=== PATIENT | female | born 1935 | race Caucasian/White ===

== ENCOUNTER 2016-08-20 07:01 | Emergency (ER) | payer MEDICARE, MEDICAID ==
--- NOTE | 2016-08-20 07:13 | Emergency Department Record ---
History of Present Illness - General Chief Complaint: Fall Injury Time Seen by Provider: 08/20/16 07:03 Source: Patient, Family, EMS Mode of Arrival: Ambulatory Limitations: No limitations - History of Present Illness Initial Comments: 80 yo female presents by EMS after a fall. She reports some difficulties recalling all details but she thinks she fell around 5:30am. She was ambulating with her walker and fell. She does not think she lost consciousness but she can not remember all details of the morning. She did hit her forehead and she complains of right upper extremity pain and bilateral knee pain. She is on aspirin and plavix. She used her life alert to contact EMS for emergent care. She has an associated headache. No vomiting. No incontinence PCP: Dr Powell PMHx: HTN, Stroke, Diabetes, Hypothyroid, CAD S/P CABG. MD Complaint: Fall -: Hour(s) Fall From: Standing When Fall Occurred: 1-3 hours [employer] Fall Witnessed: No Place Fall Occurred: Home Loss of Consciousness: Unsure Location: Head, Face Location - Extremities: Left: Knee, Right: Shoulder, Elbow, Knee Severity: Moderate Quality: Aching Context: Tripped/slipped Associated Symptoms: Confusion - [place] Coma Scale Eye Response: (4) Open spontaneously Motor Response: (6) Obeys commands Verbal Response: (5) Oriented Mary Total: 15 - Related Data Home Medications Medication Instructions Recorded Confirmed Last Taken Clopidogrel Bisulfate [Plavix] 75 mg PO DAILY 08/28/13 08/20/16 10/05/15 Insulin Glargine,Hum.rec.anlog 70 units SQ QHS 08/28/13 08/20/16 05/22/15 [Lantus] Omeprazole [Prilosec] 20 mg PO QAM 08/28/13 08/20/16 05/23/15 Potassium Chloride [Klor-Con M10] 10 meq PO DAILY 08/28/13 08/20/16 05/23/15 Pravastatin Sodium [Pravachol] 20 mg PO QPM 08/28/13 08/20/16 05/22/15 Dronedarone HCl [Multaq] 400 mg PO BID 10/11/14 08/20/16 05/23/15 Gabapentin [Gabapentin] 300 mg PO TID 10/11/14 08/20/16 05/23/15 Isosorbide Mononitrate [Imdur] 30 mg PO DAILY 10/11/14 08/20/16 10/05/15 Levothyroxine Sodium [Synthroid] 50 mcg PO DAILY 10/11/14 08/20/16 05/23/15 Lisinopril 10 mg PO DAILY 10/11/14 08/20/16 10/05/15 Metoprolol Succinate [Toprol Xl] 25 mg PO DAILY 10/11/14 08/20/16 10/05/15 Sertraline HCl [Zoloft] 100 mg PO BID 05/23/15 08/20/16 05/23/15 Albuterol Sulfate 0.5 ml NEB ASDIR 10/05/15 08/20/16 Unknown Aspirin [Adult Low Dose Aspirin EC] 81 mg PO DAILY 10/05/15 08/20/16 10/05/15 Bumetanide 0.5 mg PO DAILY 10/05/15 08/20/16 10/05/15 Ferrous Sulfate 325 mg PO DAILY 10/05/15 08/20/16 Unknown Fluticasone Propionate [Flovent 50 mcg IH ASDIR 10/05/15 08/20/16 Unknown Diskus] Metformin HCl 500 mg PO DAILY 10/05/15 08/20/16 Unknown Temazepam 15 mg PO QHS 10/05/15 08/20/16 Unknown Tiotropium [place] [Spiriva] 18 mcg IH DAILY 10/05/15 08/20/16 Unknown Tramadol HCl 50 mg PO Q6H 10/05/15 08/20/16 Unknown Venlafaxine HCl [Effexor] 75 mg PO BID 10/05/15 08/20/16 Unknown Nitroglycerin [Nitrostat] 0.4 mg SL ASDIR PRN 10/31/15 08/20/16 10/31/15 Allergies Allergy/AdvReac Type Severity Reaction Status Date / Time allopurinol [ALLOPURINOL] Allergy Unknown SWELLING Verified 08/20/16 07:04 (GENERAL) metoclopramide HCl Allergy Unknown SWELLING Verified 08/20/16 07:04 [From REGLAN] (GENERAL) ranitidine HCl [From ZANTAC] Allergy Unknown SWELLING Verified 08/20/16 07:04 (GENERAL) Sulfa (Sulfonamide Allergy Unknown SWELLING Verified 08/20/16 07:04 Antibiotics) (GENERAL) [SULFA (SULFONAMIDE ANTIBIOTICS)] abciximab [From Reopro] Allergy RASH Verified 08/20/16 07:04 eptifibatide Allergy RASH Verified 08/20/16 07:04 [From Integrilin] NSAIDS (Non-Steroidal Allergy RASH Verified 08/20/16 07:04 Anti-Inflamma verapamil HCl [From CALAN] AdvReac Unknown NAUSEA Verified 08/20/16 07:04 Review of Systems Constitutional: Denies: Chills, Fever, Weakness Eyes: Denies: Eye discharge, Eye pain, Photophobia, Vision change ENT: Denies: Congestion Respiratory: Denies: Cough, Hemoptysis, Stridor Cardiovascular: Denies: Chest pain, Palpitations, Syncope Endocrine: Denies: Fatigue Gastrointestinal: Denies: Abdominal pain, Diarrhea, Nausea, Vomiting Genitourinary: Denies: Dysuria Musculoskeletal: Reports: Arthralgia, Myalgia Skin: Reports: Bruising Neurological: Reports: Confusion, Headache. Denies: Weakness Psychiatric: Denies: Anxiety Hematological/Lymphatic: Denies: Blood Clots, Easy bleeding, Easy bruising, Swollen glands Past Medical History - SOCIAL HISTORY Smoking Status: Former smoker - RESPIRATORY Hx Respiratory Disorders: Yes Hx Asthma: Yes Hx Sleep Apnea: Yes Hx of CPAP: Yes Comment:: CPAP - CARDIOVASCULAR Hx Cardio Disorders: Yes Hx Abnormal EKG: Yes Hx Cardiac Cath: Yes (14 stents) Hx CHF: Yes Hx Edema: Yes Hx Heart Attack: Yes Hx Hypertension: Yes Hx Irregular Heartbeat: Yes Hx Vascular Disease: Yes Comment:: high cholesterol - NEURO Hx Neuro Disorders: Yes Hx TIA: Yes - GI Hx GI Disorders: Yes Hx Reflux: Yes Hx Obstructive Bowel: Yes Comment:: HX bowel CA - Hx Genitourinary Disorders: Yes Hx Bladder Problem: Yes - ENDOCRINE Hx Endocrine Disorders: Yes Hx Diabetes: Yes Hx Thyroid Disease: Yes - MUSCULOSKELETAL Hx Musculoskeletal Disorders: Yes Hx Arthritis: Yes Hx Back Injury: Yes Hx Fibromyalgia: Yes Hx Musculoskeletal Disease: Yes Hx Osteoporosis: Yes (osteopenia) Comment:: diabetic neuropathy - PSYCH Hx Psych Problems: Yes Hx Anxiety: Yes Hx Depression: Yes - HEMATOLOGY/ONCOLOGY Hx Hematology/Oncology Disorders: Yes Hx Cancer: Yes (ovarian, bowel, mouth) Hx Chemotherapy: No Hx Radiation Therapy: Yes Hx Blood Transfusions: Yes Family Medical History Hx Cancer: Father, Mother, Brother/Sister Hx Diabetes: Mother, Brother/Sister Physical Exam - General General Appearance: Alert, Oriented x3, Cooperative, No acute distress - Head Head exam: negative: Atraumatic, Normal inspection Head exam detail: Contusion Image of Face/Head: 1 - contusion with bruising and swelling - Eye Eye exam: Normal appearance, PERRL. negative: Conjunctival injection, Periorbital swelling - ENT ENT exam: Normal exam, Mucous membranes moist Ear exam: Normal external inspection Nasal Exam: Normal inspection Mouth exam: Normal external inspection Teeth exam: Normal inspection Throat exam: Normal inspection - Neck Neck exam: Normal inspection. negative: Full ROM (in a c-collar), Tenderness - Respiratory Respiratory exam: Normal lung sounds bilaterally. negative: Respiratory distress - Cardiovascular Cardiovascular Exam: Regular rate, Normal rhythm, Normal heart sounds Peripheral Pulses: 2+: Radial (R), Radial (L) - GI/Abdominal GI/Abdominal exam: Soft. negative: Guarding, Rebound, Rigid, Tenderness - Rectal Rectal exam: Deferred - exam: Deferred - Extremities Extremities exam: Normal capillary refill, Tenderness. negative: Normal inspection, Full ROM Image of Full Body: 1 - tender anterior right shoulder with pain with ROM, tender elbow with pain with ROM 2 - bilateral anterior knee pain with bruising, pain with palpation - Back Back exam: Reports: Normal inspection. Denies: CVA tenderness (R), CVA tenderness (L) - Neurological Neurological exam: Alert, Oriented X3. negative: Abnormal gait, Altered - Psychiatric Psychiatric exam: Normal affect, Normal mood - Skin Skin exam: Abrasion Type of lesion: abrasion Course - Reevaluation(s) Reevaluation #1: EKG 07:14 NSR, rate 85, intervals normal, axis left, ST inverted T waves V3-V6, similar T wave inversion 10/31/15 but afib at that time 08/20/16 07:40 Reevaluation #2: The labs were reviewed No acute changes of the CBC GFR is low at 39. Will make CT's non contrast. 08/20/16 07:51 08/20/16 08:05 Reevaluation #3: The HCT is negative for acute intracranial abnormalities, moderate forehead and left scalp hematoma. The CT scan of the cervical spine is negative for acute fracture, degenerative disc disease, osteopenia 08/20/16 08:07 On recheck the patient still complains of headache 08/20/16 08:32 line up worker and family are in the ER at this time. The patient lives alone. She was alone at the time of the event that was unwitnessed. 08/20/16 08:54 Reevaluation #4: Chest CT report was negative for any acute process CT of the abdomen was negative for acute process 08/20/16 09:06 Reevaluation #5: The XR's of the shoulder, elbow and knees were reviewed. Osteopneia without any definitive fracture on the studies The patient unable to lift the right arm due to pain or sit up due to pain I recommend admission for monitoring and reassess physical status. I discussed this with the patient and family I recommended calling Trauma at [facility] to discuss the case given her injuries, Plavix, and needs physically may require social work and physical therapy that are not available at [facility] over the weekend. 08/20/16 09:36 EMS is in the ED for transfer 08/20/16 10:34 - Consultations Consultation #1: I SHELL ONE-CALL I Trauma (Dr Kamara) and ED (Dr Sharpe) regarding transfer Medical Decision Making - Lab Data Result diagrams: 08/20/16 07:10 08/20/16 07:10 Disposition Disposition: Transfer Clinical Impression: Head contusion Qualifiers: Encounter type: initial encounter Contusion of head detail: scalp Qualified Code(s): S00.03XA - Contusion of scalp, initial encounter Contusion of arm, right Qualifiers: Encounter type: initial encounter Qualified Code(s): S40.021A - Contusion of right upper arm, initial encounter Knee contusion Qualifiers: Encounter type: initial encounter Laterality: unspecified laterality Qualified Code(s): S80.00XA - Contusion of unspecified knee, initial encounter Transfer To: [facility] Reason For Transfer: Trauma, On Plavix Accepting Physician: Dr Asad Wall Time Discussed w/Accepting Physician: 10:02 Condition: (2) Stable Forms: Patient Portal Access Time of Disposition: 10:03
[2016-08-20 07:22] LABS: GRAN % 68.9 % (47-80); HEMATOCRIT 33.7 % (35.0-47.0); HEMOGLOBIN 10.3 gm/dl (11.6-16.0); LYMPH % 21.2 % (16-45); MEAN CELL VOLUME 87.3 fl (81-97); MEAN CORPUSCULAR HGB CONC 30.6 g/dl (32-36); MEAN PLATELET VOLUME 8.9 fl (7.4-10.4); MONO % 9.9 % (0-9); PLATELET COUNT 147 K/uL (130-400); RED BLOOD COUNT 3.86 M/uL (3.80-5.40); RED CELL DISTRIBUTION WIDTH 14.3 % (11.5-14.5); WHITE BLOOD COUNT W/O DIFF 4.4 K/uL (4.2-12.2)
[2016-08-20 07:23] LABS: MEAN CORPUSCULAR HEMOGLOBIN 26.6 pg (27-33)
[2016-08-20 07:33] LABS: INR 0.88; PARTIAL THROMBOPLASTIN TIME 24.1 SECONDS (24.5-39.1)
[2016-08-20 07:37] LABS: ALB/GLOB RATIO 1.6 (1.1-1.8); ALBUMIN 3.8 gm/dL (3.5-5.0); BILIRUBIN,TOTAL 0.4 mg/dL (0.2-1.3); CREATININE 1.4 mg/dL (0.52-1.04); TOTAL PROTEIN 6.2 gm/dL (6.3-8.2)
[2016-08-20 07:43] LABS: CKMB 1.1 ug/L (0-6)
[2016-08-20 08:01] LABS: ABO GROUP A; ANTIBODY SCREEN NEGATIVE (NEGATIVE); RH TYPE NEGATIVE
[2016-08-20] MEDS ORDERED: ACETAMINOPHEN 1,000 MG/100 ML BTL IVPB ONE (08:31)
--- NOTE | 2016-08-20 12:27 | CT SCAN REPORT ---
EXAM: CT OF THE BRAIN WITHOUT CONTRAST HISTORY: TRAUMA. TECHNIQUE: Sequential axial images were obtained from the foramen magnum to the vertex without contrast administration. FINDINGS: The brain volume is normal. No large territorial infarct, hemorrhage , mass effect, or midline shift. There is a frontal scalp hematoma. No underlying osseous abnormality. IMPRESSION: FRONTAL SCALP HEMATOMA. NO UNDERLYING OSSEOUS ABNORMALITY. JOB NUMBER: [id number] [facility]TDD
--- NOTE | 2016-08-20 12:29 | RADIOLOGY REPORT ---
EXAM: RIGHT KNEE HISTORY: TRAUMA. TECHNIQUE: Three views of the right knee were performed. FINDINGS: There is osteopenia. No evidence of fracture. No joint effusion. IMPRESSION: OSTEOPENIA. NO DEFINITIVE FRACTURE. JOB NUMBER: [id number] [facility]TD[facility]
--- NOTE | 2016-08-20 12:30 | RADIOLOGY REPORT ---
EXAM: LEFT KNEE HISTORY: TRAUMA. TECHNIQUE: Three views of the left knee were performed. FINDINGS: There is osteopenia. No definitive fracture. No joint effusion. IMPRESSION: OSTEOPENIA. NO DEFINITIVE FRACTURE. JOB NUMBER: [id number] MTDD
--- NOTE | 2016-08-20 12:32 | RADIOLOGY REPORT ---
EXAM: RIGHT SHOULDER HISTORY: TRAUMA. TECHNIQUE: Two views of the right shoulder were performed. FINDINGS: There is osteopenia. No definitive fracture or dislocation. IMPRESSION: OSTEOPENIA. NO DEFINITIVE FRACTURE OR DISLOCATION. [facility]: [id number] [facility]
--- NOTE | 2016-08-20 12:36 | CT SCAN REPORT ---
EXAM: CT OF THE CHEST WITHOUT CONTRAST HISTORY: INJURY. TECHNIQUE: Sequential axial images were obtained from the thoracic inlet through the bilateral adrenal glands without intravenous contrast administration. FINDINGS: Respiratory motion artifact on this evaluation. There is cardiomegaly. No pericardial effusion. There is atheromatous change of the thoracic aorta. There are patchy ground glass opacities throughout both lung [place]. This may be related to respiratory motion artifact. No fracture deformities are appreciated. There is multilevel degenerative change. There is a right [id number] catheter in place. IMPRESSION: 1. CARDIOMEGALY WITH CORONARY ARTERY DISEASE AND POSTOP SURGICAL CHANGE. 2. RESPIRATORY MOTION ARTIFACT SOMEWHAT LIMITS EVALUATION. THERE ARE EQUIVOCAL GROUND GLASS OPACITIES THROUGHOUT BOTH LUNGS VERSUS MOTION ARTIFACT. 3. NO OSSEOUS ABNORMALITY. [facility]: [id number] [facility]
--- NOTE | 2016-08-20 12:41 | CT SCAN REPORT ---
EXAM: CT OF THE ABDOMEN AND PELVIS WITHOUT CONTRAST HISTORY: FALL. TECHNIQUE: Sequential axial images were obtained from the diaphragms through the ischiorectal fossa without intravenous or oral contrast administration. FINDINGS: The visualized lung bases appear normal. The gallbladder has been surgically removed. There are stable linear hypodensities in the right lobe which likely correspond to dilated ducts. These appear stable when compared to the prior exam dated 05/23/15. The pancreas and spleen appear normal. The adrenal glands and kidneys appear normal. There is a small nonobstructing calculus in the left kidney. There is severe atheromatous change of the abdominal vasculature. The small and large bowel appears normal. The urinary bladder appears normal. No osseous abnormalities are appreciated. There are injection granulomas within the soft tissues of the buttock. IMPRESSION: 1. NO ACUTE ABDOMINAL OR PELVIC DISEASE PROCESS. NO VISCERAL INJURY. 2. LINEAR HYPODENSITIES IN THE MEDIAL RIGHT LOBE OF THE LIVER STABLE IN APPEARANCE WHEN COMPARED TO THE PRIOR EXAM. THIS LIKELY CORRESPONDS TO DUCTAL DILATATION. THE ETIOLOGY OF THIS, HOWEVER, IS UNCERTAIN. 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 JOB NUMBER: [id number] [facility]
--- NOTE | 2016-08-20 12:44 | CT SCAN REPORT ---
EXAM: CT OF THE CERVICAL SPINE WITHOUT CONTRAST HISTORY: FALL. TECHNIQUE: Sequential axial images were obtained through the cervical spine without intravenous contrast administration. Sagittal and coronal reformatted images were performed. FINDINGS: There is no evidence of fracture, subluxation, or perched facet. There is mild multilevel degenerative change. The lateral masses are well aligned. The prevertebral soft tissues are normal. IMPRESSION: 1. NO EVIDENCE OF FRACTURE, SUBLUXATION, OR PERCHED FACET. 2. UNDERLYING OSTEOPENIA. J[facility]BER: [id number] [facility]
--- NOTE | 2016-08-20 13:19 | RADIOLOGY REPORT ---
EXAM: RIGHT ELBOW HISTORY: INJURY. TECHNIQUE: Three views of the right elbow were performed. FINDINGS: No evidence of fracture or dislocation. There is osteopenia. IMPRESSION: OSTEOPENIA. NO EVIDENCE OF FRACTURE. JOB NUMBER: [id number] [facility]
== END 2016-08-20 10:37 | disposition short-term general hospital (02) ==
LOC: ER 07:01
DX: S00.03XA Contusion of scalp, initial encounter (principal); S80.02XA Contusion of left knee, initial encounter; S80.01XA Contusion of right knee, initial encounter; S40.011A Contusion of right shoulder, initial encounter; S40.021A Contusion of right upper arm, initial encounter; R51 Headache; M50.30 Other cervical disc degeneration, unspecified cervical region; I25.10 Atherosclerotic heart disease of native coronary artery without angina pectoris; E03.9 Hypothyroidism, unspecified; E11.9 Type 2 diabetes mellitus without complications; Z95.1 Presence of aortocoronary bypass graft; Z79.02 Long term (current) use of antithrombotics/antiplatelets; I25.2 Old myocardial infarction; I10 Essential (primary) hypertension; W01.198A Fall on same level from slipping, tripping and stumbling with subsequent striking against other object, initial encounter; Y92.002 Bathroom of unspecified non-institutional (private) residence as the place of occurrence of the external cause
CPT/HCPCS: 99285 ×2; 96374; 82550; 83605; 85025; 85730; 85610; 82553; 80053; 86900; 86901; 86850; 73080; 73562 ×2; 73030; 72125; 71250; 70450; 74176; 93005; 93010; G0480; 80320

== ENCOUNTER 2016-09-15 16:36 | Emergency (ER) | payer MEDICARE, MEDICAID ==
--- NOTE | 2016-09-15 17:16 | Emergency Department Record ---
History of Present Illness - General Chief complaint: Rash Stated complaint: RASH Time Seen by Provider: 09/15/16 17:09 Source: Patient, RN notes reviewed Mode of Arrival: Ambulatory - History of Present Illness Initial comments: rash on legs started started 3 days ago and only on the lower legs both.Itch and diabetic MD complaint: Rash Onset/Timin -: Days(s) Hx Tetanus Toxoid Vaccination: Yes Year of Tetanus Vaccination: unsure Location: LLE, RLE Severity: Moderate Quality: Other Consistency: Constant Improves with: None Worsens with: None Context: None Associated symptoms: Denies other symptoms Treatments Prior to Arrival: Benadryl, OTC topical medication Treatment Prior to Arrival Comment:: Benadryl last PM - Related Data Home Medications Medication Instructions Recorded Confirmed Last Taken Clopidogrel Bisulfate [Plavix] 75 mg PO DAILY 08/28/13 09/15/16 10/05/15 Insulin Glargine,Hum.rec.anlog 70 units SQ QHS 08/28/13 09/15/16 05/22/15 [Lantus] Omeprazole [Prilosec] 20 mg PO QAM 08/28/13 09/15/16 05/23/15 Potassium Chloride [Klor-Con M10] 10 meq PO DAILY 08/28/13 09/15/16 05/23/15 Pravastatin Sodium [Pravachol] 20 mg PO QPM 08/28/13 09/15/16 05/22/15 Dronedarone HCl [Multaq] 400 mg PO BID 10/11/14 09/15/16 05/23/15 Gabapentin [Gabapentin] 300 mg PO TID 10/11/14 09/15/16 05/23/15 Isosorbide Mononitrate [Imdur] 30 mg PO DAILY 10/11/14 09/15/16 10/05/15 Levothyroxine Sodium [Synthroid] 50 mcg PO DAILY 10/11/14 09/15/16 05/23/15 Lisinopril 10 mg PO DAILY 10/11/14 09/15/16 10/05/15 Metoprolol Succinate [Toprol Xl] 25 mg PO DAILY 10/11/14 09/15/16 10/05/15 Sertraline HCl [Zoloft] 100 mg PO BID 05/23/15 09/15/16 05/23/15 Albuterol Sulfate 0.5 ml NEB ASDIR 10/05/15 09/15/16 Unknown Aspirin [Adult Low Dose Aspirin EC] 81 mg PO DAILY 10/05/15 09/15/16 10/05/15 Bumetanide 0.5 mg PO DAILY 10/05/15 09/15/16 10/05/15 Ferrous Sulfate 325 mg PO DAILY 10/05/15 09/15/16 Unknown Fluticasone Propionate [Flovent 50 mcg IH ASDIR 10/05/15 09/15/16 Unknown Diskus] Metformin HCl 500 mg PO DAILY 10/05/15 09/15/16 Unknown Temazepam 15 mg PO QHS 10/05/15 09/15/16 Unknown Tiotropium [place] [Spiriva] 18 mcg IH DAILY 10/05/15 09/15/16 Unknown Tramadol HCl 50 mg PO Q6H 10/05/15 09/15/16 Unknown Venlafaxine HCl [Effexor] 75 mg PO BID 10/05/15 09/15/16 Unknown Nitroglycerin [Nitrostat] 0.4 mg SL ASDIR PRN 10/31/15 09/15/16 10/31/15 Previous Rx's Medication Instructions Recorded Prednisone [Prednisone 10Mg] 10 mg PO ASDIR #18 tab 09/15/16 Allergies Allergy/AdvReac Type Severity Reaction Status Date / Time allopurinol [ALLOPURINOL] Allergy Unknown SWELLING Verified 09/15/16 16:54 (GENERAL) metoclopramide HCl Allergy Unknown SWELLING Verified 09/15/16 16:54 [From REGLAN] (GENERAL) ranitidine HCl [From ZANTAC] Allergy Unknown SWELLING Verified 09/15/16 16:54 (GENERAL) Sulfa (Sulfonamide Allergy Unknown SWELLING Verified 09/15/16 16:54 Antibiotics) (GENERAL) [SULFA (SULFONAMIDE ANTIBIOTICS)] abciximab [From Reopro] Allergy RASH Verified 09/15/16 16:54 eptifibatide Allergy RASH Verified 09/15/16 16:54 [From Integrilin] NSAIDS (Non-Steroidal Allergy RASH Verified 09/15/16 16:54 Anti-Inflamma verapamil HCl [From CALAN] AdvReac Unknown NAUSEA Verified 09/15/16 16:54 Travel Screening - Travel/Exposure Within Last 30 Days Have you traveled within the last 30 days?: No - Travel/Exposure Within Last Year Have you traveled outside the [place] in the last year?: No - Additonal Travel Details Have you been exposed to anyone with a communicable illness?: No - Travel Symptoms Symptom Screening: None Review of Systems Reviewed: No additional complaints except as noted below Constitutional: Reports: As per HPI. Denies: Chills, Fever, Malaise, Night sweats, Weakness, Weight change Eyes: Reports: As per HPI. Denies: Eye discharge, Eye pain, Photophobia, Vision change ENT: Reports: As per HPI. Denies: Congestion, Dental pain, Ear pain, Epistaxis , Hearing loss, Throat pain Respiratory: Reports: As per HPI. Denies: Cough, Dyspnea, Hemoptysis, Stridor, Wheezes Cardiovascular: Reports: As per HPI. Denies: Arrhythmia, Chest pain, Dyspnea on exertion, Edema, Murmurs, Orthopnea, Palpitations, Paroxysmal nocturnal dyspnea, Rheumatic Fever, Syncope Endocrine: Reports: As per HPI. Denies: Fatigue, Heat or cold intolerance, Polydipsia, Polyuria Gastrointestinal: Reports: As per HPI. Denies: Abdominal pain, Constipation, Diarrhea, Hematemesis, Hematochezia, Melena, Nausea, Vomiting Genitourinary: Reports: As per HPI. Denies: Abnormal menses, Discharge, Dyspareunia, Dysuria, Frequency, Hematuria, Incontinence, Retention, Urgency Musculoskeletal: Reports: As per HPI. Denies: Arthralgia, Back pain, Gout, Joint swelling, Myalgia, Neck pain Skin: Reports: As per HPI, Rash. Denies: Bruising, Change in color, Change in hair/nails, Lesions, Pruritus Neurological: Reports: As per HPI. Denies: Abnormal gait, Confusion, Headache, Numbness, Paresthesias, Seizure, Tingling, Tremors, Vertigo, Weakness Psychiatric: Reports: As per HPI. Denies: Anxiety, Auditory hallucinations, Depression, Homicidal thoughts, Suicidal thoughts, Visual hallucinations Hematological/Lymphatic: Reports: As per HPI. Denies: Anemia, Blood Clots, Easy bleeding, Easy bruising, Swollen glands Past Medical History - SOCIAL HISTORY Smoking Status: Former smoker Alcohol Use: None Drug Use: None - RESPIRATORY Hx Respiratory Disorders: Yes Hx Asthma: Yes Hx Sleep Apnea: Yes Hx of CPAP: Yes Comment:: CPAP - CARDIOVASCULAR Hx Cardio Disorders: Yes Hx Abnormal EKG: Yes Hx Cardiac Cath: Yes (14 stents) Hx CHF: Yes Hx Edema: Yes Hx Heart Attack: Yes Hx Hypertension: Yes Hx Irregular Heartbeat: Yes Hx Vascular Disease: Yes Comment:: high cholesterol - NEURO Hx Neuro Disorders: Yes Hx TIA: Yes - GI Hx GI Disorders: Yes Hx Reflux: Yes Hx Obstructive Bowel: Yes Comment:: HX bowel CA - Hx Genitourinary Disorders: Yes Hx Bladder Problem: Yes - ENDOCRINE Hx Endocrine Disorders: Yes Hx Diabetes: Yes Hx Thyroid Disease: Yes - MUSCULOSKELETAL Hx Musculoskeletal Disorders: Yes Hx Arthritis: Yes Hx Back Injury: Yes Hx Fibromyalgia: Yes Hx Musculoskeletal Disease: Yes Hx Osteoporosis: Yes (osteopenia) Comment:: diabetic neuropathy - PSYCH Hx Psych Problems: Yes Hx Anxiety: Yes Hx Depression: Yes - HEMATOLOGY/ONCOLOGY Hx Hematology/Oncology Disorders: Yes Hx Cancer: Yes (ovarian, bowel, mouth) Hx Chemotherapy: No Hx Radiation Therapy: Yes Hx Blood Transfusions: Yes Family Medical History Any Significant Family History?: Yes Hx Cancer: Father, Mother, Brother/Sister Hx Diabetes: Mother, Brother/Sister Physical Exam - General General Appearance: Alert, Oriented x3, Cooperative, No acute distress - Head Head exam: Normal inspection - Eye Eye exam: Normal appearance, PERRL Pupils: Normal accommodation - ENT ENT exam: Normal exam, Mucous membranes moist, Normal external ear exam, Normal orophraynx, TM's normal bilaterally Ear exam: Normal external inspection. negative: External canal tenderness Nasal Exam: Normal inspection. negative: Discharge, Sinus tenderness Mouth exam: Normal external inspection, Tongue normal Teeth exam: Normal inspection. negative: Dental caries Throat exam: Normal inspection. negative: Tonsillar erythema, Tonsillar exudate - Neck Neck exam: Normal inspection, Full ROM. negative: Tenderness - Respiratory Respiratory exam: Normal lung sounds bilaterally. negative: Respiratory distress - Cardiovascular Cardiovascular Exam: Regular rate, Normal rhythm, Normal heart sounds - GI/Abdominal GI/Abdominal exam: Soft, Normal bowel sounds. negative: Tenderness - Rectal Rectal exam: Deferred - exam: Deferred - Extremities Extremities exam: Normal inspection, Full ROM, Normal capillary refill. negative: Tenderness - Back Back exam: Reports: Normal inspection, Full ROM. Denies: Muscle spasm, Rash noted, Tenderness - Neurological Neurological exam: Alert, Normal gait, Oriented X3, Reflexes normal - Psychiatric Psychiatric exam: Normal affect, Normal mood - Skin Skin exam: Rash (small red spots on both legs and on the right lower leg she has an old ulcer scar from 30 years ago. she is scratching her legs) Course Vital Signs 09/15/16 16:56 Temperature 98.7 F Pulse Rate 79 Respiratory 20 Rate Blood Pressure 109/71 Pulse Ox 98 Disposition Clinical Impression: Dermatitis Disposition: Home, Self-Care Instructions: Acute Rash (ED) Additional Instructions: follow up with Dr. Powell in 5 days . take prednisone 3 pills a day for 3 days and then 2 pills aday for 3 days and then 1 pill aday for 3 days. take benadryl two pills (50 mg) every 6 hours. Prescriptions: Prednisone [Prednisone 10Mg] 10 mg PO ASDIR #18 tab Forms: Patient Portal Access Time of Disposition: 17:23
== END 2016-09-15 17:33 | disposition home or self-care (01) ==
LOC: ER 16:36
DX: L30.9 Dermatitis, unspecified (principal)
CPT/HCPCS: 99282

== ENCOUNTER 2016-11-05 22:52 | Emergency (ER) | payer MEDICARE, MEDICAID ==
--- NOTE | 2016-11-05 23:07 | Emergency Department Record ---
History of Present Illness - General Chief Complaint: Altered Mental Status Stated Complaint: HEADACHE Time Seen by Provider: 11/05/16 23:01 Source: Patient, EMS Mode of Arrival: EMS Limitations: No limitations - History of Present Illness Initial Comments: 81 yo female presents to ED with a following an episode of slurred speech lasting approximately 15-20 minutes associated with headache symptoms. EMS reports resolution of her speech symptoms, and the patient denies any recent focal weakness symptoms. Patient does report that she has not slept in 2 days and is not exactly sure why she is currently in the ED. Patient has a previous history of CAD, DM, and HTN. MD Complaint: Other (slurred speech) Onset/Timin -: Minutes(s) Severity: Moderate Consistency: Intermittent Context: Unknown Associated Symptoms: Denies other symptoms - Mary Coma Scale Eye Response: (4) Open spontaneously Motor Response: (6) Obeys commands Verbal Response: (5) Oriented Mary Total: 15 - Symptoms of Stroke Symptoms of stroke: Speech Dysfunction - Related Data Home Medications Medication Instructions Recorded Confirmed Last Taken Clopidogrel Bisulfate [Plavix] 75 mg PO DAILY 08/28/13 11/05/16 10/05/15 Omeprazole [Prilosec] 20 mg PO QAM 08/28/13 11/05/16 05/23/15 Pravastatin Sodium [Pravachol] 20 mg PO QPM 08/28/13 11/05/16 05/22/15 Dronedarone HCl [Multaq] 400 mg PO BID 10/11/14 11/05/16 05/23/15 Gabapentin [Gabapentin] 300 mg PO TID 10/11/14 11/05/16 05/23/15 Levothyroxine Sodium [Synthroid] 50 mcg PO DAILY 10/11/14 11/05/16 05/23/15 Lisinopril 10 mg PO DAILY 10/11/14 11/05/16 10/05/15 Sertraline HCl [Zoloft] 100 mg PO BID 05/23/15 11/05/16 05/23/15 Albuterol Sulfate 0.5 ml NEB ASDIR 10/05/15 11/05/16 Unknown Aspirin [Adult Low Dose Aspirin EC] 81 mg PO DAILY 10/05/15 11/05/16 10/05/15 Fluticasone Propionate [Flovent 50 mcg IH ASDIR 10/05/15 11/05/16 Unknown Diskus] Metformin HCl 500 mg PO BID 10/05/15 11/05/16 Unknown Temazepam 15 mg PO QHS 10/05/15 11/05/16 Unknown Tiotropium [place] [Spiriva] 18 mcg IH DAILY 10/05/15 11/05/16 Unknown Tramadol HCl 50 mg PO Q6H 10/05/15 11/05/16 Unknown Venlafaxine HCl [Effexor] 75 mg PO BID 10/05/15 11/05/16 Unknown Nitroglycerin [Nitrostat] 0.4 mg SL ASDIR PRN 10/31/15 11/05/16 10/31/15 Duloxetine HCl [Cymbalta] 30 mg PO BID 11/05/16 11/05/16 Unknown Furosemide [Lasix] 20 mg PO BID 11/05/16 11/05/16 Unknown Insulin Detemir [Levemir] 65 units SQ QHS 11/05/16 11/05/16 Unknown Nortriptyline HCl [Pamelor] 10 mg PO QPM 11/05/16 11/05/16 Unknown Allergies Allergy/AdvReac Type Severity Reaction Status Date / Time allopurinol [ALLOPURINOL] Allergy Unknown SWELLING Verified 09/15/16 16:54 (GENERAL) metoclopramide HCl Allergy Unknown SWELLING Verified 09/15/16 16:54 [From REGLAN] (GENERAL) ranitidine HCl [From ZANTAC] Allergy Unknown SWELLING Verified 09/15/16 16:54 (GENERAL) Sulfa (Sulfonamide Allergy Unknown SWELLING Verified 09/15/16 16:54 Antibiotics) (GENERAL) [SULFA (SULFONAMIDE ANTIBIOTICS)] abciximab [From Reopro] Allergy RASH Verified 09/15/16 16:54 eptifibatide Allergy RASH Verified 09/15/16 16:54 [From Integrilin] NSAIDS (Non-Steroidal Allergy RASH Verified 09/15/16 16:54 Anti-Inflamma verapamil HCl [From CALAN] AdvReac Unknown NAUSEA Verified 09/15/16 16:54 Review of Systems Constitutional: Denies: Chills, Fever, Malaise, Night sweats Eyes: Denies: Eye discharge, Eye pain ENT: Denies: Congestion, Ear pain Respiratory: Denies: Cough, Dyspnea Cardiovascular: Denies: Chest pain, Dyspnea on exertion Endocrine: Denies: Fatigue, Heat or cold intolerance Gastrointestinal: Denies: Abdominal pain, Nausea, Vomiting Genitourinary: Denies: Incontinence, Retention Musculoskeletal: Denies: Arthralgia, Back pain, Gout, Joint swelling Skin: Denies: Bruising, Change in color Neurological: Reports: Headache, Other (slurred speech, now resolved). Denies: Abnormal gait, Confusion, Seizure Psychiatric: Denies: Anxiety Hematological/Lymphatic: Denies: Anemia, Blood Clots Past Medical History - SOCIAL HISTORY Smoking Status: Former smoker Drug Use: None - RESPIRATORY Hx Respiratory Disorders: Yes Hx Asthma: Yes Hx Sleep Apnea: Yes Hx of CPAP: Yes Comment:: CPAP - CARDIOVASCULAR Hx Cardio Disorders: Yes Hx Abnormal EKG: Yes Hx Cardiac Cath: Yes (14 stents) Hx CHF: Yes Hx Edema: Yes Hx Heart Attack: Yes Hx Hypertension: Yes Hx Irregular Heartbeat: Yes Hx Vascular Disease: Yes Comment:: high cholesterol - NEURO Hx Neuro Disorders: Yes Hx TIA: Yes - GI Hx GI Disorders: Yes Hx Reflux: Yes Hx Obstructive Bowel: Yes Comment:: HX bowel CA - Hx Genitourinary Disorders: Yes Hx Bladder Problem: Yes - ENDOCRINE Hx Endocrine Disorders: Yes Hx Diabetes: Yes Hx Thyroid Disease: Yes - MUSCULOSKELETAL Hx Musculoskeletal Disorders: Yes Hx Arthritis: Yes Hx Back Injury: Yes Hx Fibromyalgia: Yes Hx Musculoskeletal Disease: Yes Hx Osteoporosis: Yes (osteopenia) Comment:: diabetic neuropathy - PSYCH Hx Psych Problems: Yes Hx Anxiety: Yes Hx Depression: Yes - HEMATOLOGY/ONCOLOGY Hx Hematology/Oncology Disorders: Yes Hx Cancer: Yes (ovarian, bowel, mouth) Hx Chemotherapy: No Hx Radiation Therapy: Yes Hx Blood Transfusions: Yes Family Medical History Hx Cancer: Father, Mother, Brother/Sister Hx Diabetes: Mother, Brother/Sister Physical Exam - General General Appearance: Alert, Oriented x3, Cooperative, No acute distress Limitations: Other (patient reports that she is unaware of why she is in the ED tonight.) - Head Head exam: Atraumatic, Normocephalic, Normal inspection Head exam detail: negative: Abrasion, Contusion, Nazario's sign, General tenderness, Hematoma, Laceration - Eye Eye exam: Normal appearance. negative: Conjunctival injection, Periorbital swelling, Periorbital tenderness, Scleral icterus - ENT Ear exam: negative: Auricular hematoma, Auricular trauma Nasal Exam: negative: Active bleeding, Discharge, Dried blood, Foreign body Mouth exam: negative: Drooling, Laceration, Muffled voice, Tongue elevation - Neck Neck exam: Normal inspection. negative: Meningismus, Tenderness - Respiratory Respiratory exam: Normal lung sounds bilaterally. negative: Rales, Respiratory distress, Rhonchi, Stridor - Cardiovascular Cardiovascular Exam: Regular rate, Normal rhythm, Normal heart sounds - GI/Abdominal GI/Abdominal exam: Soft. negative: Rebound, Rigid, Tenderness - Rectal Rectal exam: Deferred - exam: Deferred - Extremities Extremities exam: Normal inspection. negative: Calf tenderness, Pedal edema, Tenderness - Back Back exam: Denies: CVA tenderness (R), CVA tenderness (L) - Neurological Neurological exam: Alert, Normal gait, Oriented X3 - Psychiatric Psychiatric exam: Normal affect, Normal mood - Skin Skin exam: Normal color. negative: Abrasion Type of lesion: negative: abrasion Course - Reevaluation(s) Reevaluation #1: 11/05/16 23:07 Patient was seen and examined, there are no focal deficits on examination and her speech is now clear. Patient is not currently a tPA candidate based on examination. Reevaluation #2: 11/05/16 23:53 Labs reviewed, Hgb 11.0, HCT35, INR 0.95, BUN 41/Creatinine 1.6. Labs are otherwise grossly unremarkable for an acute process. Reevaluation #3: 11/06/16 00:14 CT Head: Chronic ischemic changes bilaterally. ASA and Tramdol ordered for probably TIA and headache pain symptoms. After discussing options for transfer, will initiate transfer to [facility] for neurology consultation. Reevaluation #4: 11/06/16 00:26 Case was discussed with both Deanna Betts and Dr. Horner, will accept transfer for neurology evaluation. Medical Decision Making - Lab Data Result diagrams: 11/05/16 23:18 11/05/16 23:18 Disposition Disposition: Transfer Clinical Impression: CVA, old, cognitive deficits TIA (transient ischemic attack) Qualifiers: Transient cerebral ischemia type: unspecified Qualified Code(s): G45.9 - Transient cerebral ischemic attack, unspecified Disposition: Acute Care Hospital Transfer Transfer To: [facility] Reason For Transfer: Neurology consultation Accepting Physician: Roxane/Evens Time Discussed w/Accepting Physician: 00:20 Condition: (2) Stable Forms: Patient Portal Access Time of Disposition: 00:22 Quality - Quality Measures Quality Measures: N/A - Blood Pressure Screening Does Patient Have Any of the Following: No Blood Pressure Classification: Normal BP Reading Systolic Measurement: 111 Diastolic Measurement: 71 Screening for High Blood Pressure: < Normal BP, F/U Not Required > [G8783]
[2016-11-05 23:26] LABS: GRAN % 75.1 % (47-80); HEMATOCRIT 34.9 % (35.0-47.0); LYMPH % 15.6 % (16-45); MEAN CORPUSCULAR HGB CONC 31.5 g/dl (32-36); MEAN PLATELET VOLUME 9.2 fl (7.4-10.4); MONO % 9.3 % (0-9); PLATELET COUNT 158 K/uL (130-400); RED BLOOD COUNT 4.06 M/uL (3.80-5.40); RED CELL DISTRIBUTION WIDTH 15.8 % (11.5-14.5); WHITE BLOOD COUNT W/O DIFF 4.9 K/uL (4.2-12.2)
[2016-11-05 23:36] LABS: INR 0.95; PROTHROMBIN TIME (PATIENT) 10.3 SECONDS (9.5-12.1)
[2016-11-05 23:37] LABS: ALB/GLOB RATIO 1.7 (1.1-1.8); ALBUMIN 4.6 gm/dL (3.5-5.0); ANION GAP 12.6 (7-16); BILIRUBIN,TOTAL 0.85 mg/dL (0.2-1.3); CARBON DIOXIDE 29.4 mmol/L (22-30); CREATININE 1.6 mg/dL (0.52-1.04); TOTAL PROTEIN 7.3 gm/dL (6.3-8.2)
[2016-11-06 00:07] LABS: THYROID STIMULATING HORMONE 3.63 uIU/ml (0.465-4.68)
[2016-11-06] MEDS ORDERED: ASPIRIN 81 MG CHEWABLE TABLET PO ONE (00:18)
[2016-11-06] MEDS ORDERED: TRAMADOL HCL 50 MG TABLET PO ONE (00:18)
--- NOTE | 2016-11-08 10:26 | CT SCAN REPORT ---
EXAM: CT SCAN OF THE HEAD HISTORY: SLURRED SPEECH. TECHNIQUE: Serial axial CT scan of the head was performed at 2.5 mm intervals from the base to the skull to the apex without the use of intravenous contrast. Sagittal and coronal reconstructions are provided. Comparison: CT scan of the head dated 08/20/16 is provided. FINDINGS: Mild to moderate generalized parenchymal volume loss is noted. Mild to moderate periventricular and subcortical white matter. Chronic small vessel ischemic changes are unchanged with respect to the prior examination. There is no mass or mass effect. Examination is somewhat limited due to motion artifact at the skull base. There is no CT evidence of intra or extraaxial fluid collection to suggest bleeding. Bone windows demonstrate no CT evidence of a fracture or dislocation of the skull. IMPRESSION: STABLE CT APPEARANCE OF THE BRAIN WITH RESPECT TO THE PRIOR EXAMINATION DISCUSSED ABOVE. JOB NUMBER: [id number] MTDD
== END 2016-11-06 01:50 | disposition short-term general hospital (02) ==
LOC: ER 22:52
DX: G45.9 Transient cerebral ischemic attack, unspecified (principal); R47.81 Slurred speech; R51 Headache; I10 Essential (primary) hypertension; I25.2 Old myocardial infarction; E11.9 Type 2 diabetes mellitus without complications; E07.9 Disorder of thyroid, unspecified; I50.9 Heart failure, unspecified; Z87.891 Personal history of nicotine dependence; Z79.4 Long term (current) use of insulin; Z79.84 Long term (current) use of oral hypoglycemic drugs
CPT/HCPCS: 70450; 80053; 84443; 85025; 85610; 99285

== ENCOUNTER 2017-01-27 18:53 | Inpatient (IN) | payer MEDICARE, MEDICAID ==
--- NOTE | 2017-01-27 19:01 | Emergency Department Record ---
History of Present Illness - General Chief Complaint: Shortness of breath Stated Complaint: TROUBLE BREATHING Time Seen by Provider: 01/27/17 18:54 Source: Patient Mode of Arrival: EMS Limitations: No limitations - History of Present Illness Initial Comments: 81 yo female presents to ED for worsening difficulty in breathing symptoms for approximately 1 week. Patient reports cough symptoms, wheezing, and increased swelling to the lower extremities bilaterally. Patient denies fevers, chills, or chest discomfort symptoms. 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 Patient also reports chronic atrial fibrillation. Patient reports seeing her PCP about 1 week ago for her symptoms, was started on "a pill" but is unaware of what the medication is that she was given. MD Complaint: Shortness of breath Onset/Timin -: Week(s) Severity: Moderate Consistency: Constant Improves With: Nothing Worsens With: Nothing Known History Of: Asthma, Congestive heart failure, Diabetes Associated Symptoms: Denies other symptoms Treatments Prior to Arrival: Oxygen - Related Data Home Oxygen Therapy: No Home Medications Medication Instructions Recorded Confirmed Last Taken Alprazolam [Alprazolam] 0.25 mg PO BID 01/27/17 01/27/17 Unknown Aspirin [Aspir-Low] 81 mg PO DAILY 01/27/17 01/27/17 Unknown Atorvastatin Calcium [Lipitor] 20 mg PO QHS 01/27/17 01/27/17 Unknown Clopidogrel Bisulfate [Clopidogrel] 75 mg PO DAILY 01/27/17 01/27/17 Unknown Dronedarone HCl [Multaq] 400 mg PO BID 01/27/17 01/27/17 Unknown Duloxetine HCl [Cymbalta] 30 mg PO BID 01/27/17 01/27/17 Unknown Ferrous Sulfate [Iron] 325 mg PO BID 01/27/17 01/27/17 Unknown Furosemide [Lasix] 20 mg PO BID 01/27/17 01/27/17 Unknown Insulin Detemir [Levemir Flextouch] 01/27/17 Unknown Isosorbide Mononitrate [Imdur] 30 mg PO DAILY 01/27/17 01/27/17 Unknown Levothyroxine Sodium 50 mcg PO QAM 01/27/17 01/27/17 Unknown Metformin ER HCl [Glucophage Xr] 500 mg PO BID 01/27/17 01/27/17 Unknown Nitroglycerin [Nitrostat] 0.4 mg SL Q5MIN PRN 01/27/17 01/27/17 Unknown Nortriptyline HCl 20 mg PO QHS 01/27/17 01/27/17 Unknown Omeprazole [Prilosec] 20 mg PO QAM 01/27/17 01/27/17 Unknown Ondansetron [Zofran Odt] 4 mg PO Q8H 01/27/17 01/27/17 Unknown Temazepam [Restoril] 15 mg PO QHS 01/27/17 01/27/17 Unknown Tiotropium [place] [Spiriva] 18 mcg IH DAILY 01/27/17 01/27/17 Unknown Allergies Allergy/AdvReac Type Severity Reaction Status Date / Time allopurinol [ALLOPURINOL] Allergy Unknown SWELLING Verified 09/15/16 16:54 (GENERAL) metoclopramide HCl Allergy Unknown SWELLING Verified 09/15/16 16:54 [From REGLAN] (GENERAL) ranitidine HCl [From ZANTAC] Allergy Unknown SWELLING Verified 09/15/16 16:54 (GENERAL) Sulfa (Sulfonamide Allergy Unknown SWELLING Verified 09/15/16 16:54 Antibiotics) (GENERAL) [SULFA (SULFONAMIDE ANTIBIOTICS)] abciximab [From Reopro] Allergy RASH Verified 09/15/16 16:54 eptifibatide Allergy RASH Verified 09/15/16 16:54 [From Integrilin] NSAIDS (Non-Steroidal Allergy RASH Verified 09/15/16 16:54 Anti-Inflamma verapamil HCl [From CALAN] AdvReac Unknown NAUSEA Verified 09/15/16 16:54 Review of Systems Constitutional: Denies: Chills, Fever, Malaise, Night sweats Eyes: Denies: Eye discharge, Eye pain ENT: Denies: Congestion, Ear pain, Epistaxis Respiratory: Reports: Cough, Dyspnea, Wheezes Cardiovascular: Reports: Edema. Denies: Chest pain, Dyspnea on exertion Endocrine: Denies: Fatigue, Heat or cold intolerance Gastrointestinal: Denies: Abdominal pain, Nausea, Vomiting Genitourinary: Denies: Incontinence, Retention Musculoskeletal: Denies: Arthralgia, Back pain, Gout, Joint swelling Skin: Denies: Bruising, Change in color Neurological: Denies: Abnormal gait, Confusion Psychiatric: Denies: Anxiety Hematological/Lymphatic: Denies: Anemia, Blood Clots Past Medical History - SOCIAL HISTORY Smoking Status: Former smoker Drug Use: None - RESPIRATORY Hx Respiratory Disorders: Yes Hx Asthma: Yes Hx Sleep Apnea: Yes Hx of CPAP: Yes Comment:: CPAP - CARDIOVASCULAR Hx Cardio Disorders: Yes Hx Abnormal EKG: Yes Hx Cardiac Cath: Yes (14 stents) Hx CHF: Yes Hx Edema: Yes Hx Heart Attack: Yes Hx Hypertension: Yes Hx Irregular Heartbeat: Yes Hx Vascular Disease: Yes Comment:: high cholesterol - NEURO Hx Neuro Disorders: Yes Hx TIA: Yes - GI Hx GI Disorders: Yes Hx Reflux: Yes Hx Obstructive Bowel: Yes Comment:: HX bowel CA - Hx Genitourinary Disorders: Yes Hx Bladder Problem: Yes - ENDOCRINE Hx Endocrine Disorders: Yes Hx Diabetes: Yes Hx Thyroid Disease: Yes - MUSCULOSKELETAL Hx Musculoskeletal Disorders: Yes Hx Arthritis: Yes Hx Back Injury: Yes Hx Fibromyalgia: Yes Hx Musculoskeletal Disease: Yes Hx Osteoporosis: Yes (osteopenia) Comment:: diabetic neuropathy - PSYCH Hx Psych Problems: Yes Hx Anxiety: Yes Hx Depression: Yes - HEMATOLOGY/ONCOLOGY Hx Hematology/Oncology Disorders: Yes Hx Cancer: Yes (ovarian, bowel, mouth) Hx Chemotherapy: No Hx Radiation Therapy: Yes Hx Blood Transfusions: Yes Family Medical History Hx Cancer: Father, Mother, Brother/Sister Hx Diabetes: Mother, Brother/Sister Physical Exam - General General Appearance: Alert, Oriented x3, Cooperative, Moderate distress, Other ( receiving duoneb on arrival) Limitations: No limitations - Head Head exam: Atraumatic, Normocephalic, Normal inspection Head exam detail: negative: Abrasion, Contusion, Nazario's sign, General tenderness, Hematoma, Laceration - Eye Eye exam: Normal appearance. negative: Conjunctival injection, Periorbital swelling, Periorbital tenderness, Scleral icterus - ENT Ear exam: negative: Auricular hematoma, Auricular trauma Nasal Exam: negative: Active bleeding, Discharge, Dried blood, Foreign body Mouth exam: negative: Drooling, Laceration, Muffled voice, Tongue elevation - Neck Neck exam: Normal inspection. negative: Meningismus, Tenderness - Respiratory Respiratory exam: Decreased breath sounds, Respiratory distress, Wheezes. negative: Rhonchi, Stridor - Cardiovascular Cardiovascular Exam: Normal heart sounds, Irregular rhythm - GI/Abdominal GI/Abdominal exam: Soft. negative: Rebound, Rigid, Tenderness - Rectal Rectal exam: Deferred - exam: Deferred - Extremities Extremities exam: Pedal edema (1+ bialteral LW edema). negative: Calf tenderness, Tenderness - Back Back exam: Denies: CVA tenderness (R), CVA tenderness (L) - Neurological Neurological exam: Alert, Oriented X3 - Psychiatric Psychiatric exam: Normal affect, Normal mood - Skin Skin exam: Normal color. negative: Abrasion Type of lesion: negative: abrasion Course - Reevaluation(s) Reevaluation #1: 01/27/17 19:13 EKG: Atrial Fibrillation 99 LAD, Irregular R-R Nonspecific ST-T wave changes Previous 08/20/16-NSR, otherwise unchanged Reevaluation #2: 01/27/17 19:40 Labs reviewed, Hgb 9.6 (previous 11.0), BUN 30/Creatinine 1.2 (improved from previous), BNP 3028 (higher than previous). CXR: Chronic interstitial changes, nothing acute. Patient reassessed, continues to have prolonged expiratory phase with mild wheezing present, 93-97% RA. Will admit for further observation given the patient's respiratory status. Patient agrees with the plan as discussed. Medical Decision Making - Lab Data Result diagrams: 01/27/17 18:51 01/27/17 18:51 Disposition Disposition: Admit Clinical Impression: Asthma attack Qualifiers: Asthma severity: moderate Asthma persistence: unspecified Qualified Code(s): J45.901 - Unspecified asthma with (acute) exacerbation CHF exacerbation Qualifiers: Congestive heart failure type: unspecified congestive heart failure type Qualified Code(s): I50.9 - Heart failure, unspecified UTI (urinary tract infection) Qualifiers: Urinary tract infection type: acute cystitis Hematuria presence: without hematuria Qualified Code(s): N30.00 - Acute cystitis without hematuria Disposition: Still a Patient at [facility] Decision to Admit: Admit from ER Decision to Admit Date: 01/27/17 Decision to Admit Time: 19:44 Condition: (2) Stable Time of Disposition: 19:44 Quality - Quality Measures Quality Measures: N/A - Blood Pressure Screening Does Patient Have Any of the Following: Active Dx of HTN Blood Pressure Classification: Pre-Hypertensive BP Reading Systolic Measurement: 126 Diastolic Measurement: 89 Screening for High Blood Pressure: Patient Exclusion, Hx of HTN [G9744]
[2017-01-27 19:03] LABS: GRAN % 76.7 % (47-80); HEMATOCRIT 32.6 % (35.0-47.0); HEMOGLOBIN 9.6 gm/dl (11.6-16.0); LYMPH % 15.2 % (16-45); MEAN CELL VOLUME 89.3 fl (81-97); MEAN CORPUSCULAR HEMOGLOBIN 26.3 pg (27-33); MEAN CORPUSCULAR HGB CONC 29.4 g/dl (32-36); MONO % 8.1 % (0-9); PLATELET COUNT 142 K/uL (130-400); RED BLOOD COUNT 3.65 M/uL (3.80-5.40); RED CELL DISTRIBUTION WIDTH 15.2 % (11.5-14.5); WHITE BLOOD COUNT W/O DIFF 6.5 K/uL (4.2-12.2)
[2017-01-27 19:32] LABS: ALB/GLOB RATIO 1.5 (1.1-1.8); ALBUMIN 4.1 g/dL (4.0-5.0); ALKALINE PHOSPHATASE 88 U/L (35-104); ALT/SGPT 17 U/L (<33); AST/SGOT 14 U/L (10.0-35.0); BLOOD UREA NITROGEN 30 mg/dL (8-23); CKMB 2.3 ng/mL (<3.77); CREATINE PHOSPHOKINASE 69 U/L (26-192); CREATININE 1.2 mg/dL (0.5-0.9); EST GLOMERULAR FILTRATION RATE 46 mL/min; GLUCOSE,RANDOM 224 mg/dL (74-109); TOTAL PROTEIN 6.8 g/dL (6.6-8.7)
[2017-01-27 19:35] LABS: URINE APPEARANCE CLEAR; URINE BILIRUBIN NEGATIVE (NEGATIVE); URINE BLOOD TRACE-I (NEGATIVE); URINE COLOR YELLOW; URINE GLUCOSE (UA) NEGATIVE (NEGATIVE); URINE KETONE NEGATIVE (NEGATIVE); URINE LEUKOCYTE ESTERASE MODERATE (NEGATIVE); URINE NITRITE NEGATIVE (NEGATIVE); URINE UROBILINOGEN 0.2 E.U./dL (0.20 - 1.00)
[2017-01-27] MEDS ORDERED: METHYLPREDNISOLONE PF 125MG/VIAL IVP ONE (19:50)
[2017-01-27 19:53] LABS: URINE RBC 0 - 2 (NONE SEEN); URINE WBC 16 - 20 (0-2/hpf)
[2017-01-27 19:54] LABS: URINE BACTERIA 2+
[2017-01-27] MEDS ORDERED: CEFTRIAXONE SODIUM 1 GM in 0.9 % SODIUM CHLORIDE 100ML 100 ML IVPB ONE (19:56)
[2017-01-27] MEDS ORDERED: ALBUTEROL SULFATE (0.083%) 2.5 MG/3 ML NEB INH PRN (21:27)
[2017-01-27] MEDS ORDERED: ONDANSETRON 4 MG ODT TABLET PO SCH (21:27)
[2017-01-27] MEDS ORDERED: NITROGLYCERIN 0.4MG SL TABLET #25 BTL SL PRN (21:27)
[2017-01-27] MEDS: IPRATROPIUM/ALBUTEROL (0.5MG/3MG) NEB INH SCH (21:39)
[2017-01-27] MEDS ORDERED: ALPRAZOLAM 0.25 MG TABLET PO PRN (22:00)
[2017-01-27] MEDS ORDERED: NORTRIPTYLINE HCL PO SCH (22:00)
[2017-01-27] MEDS ORDERED: ONDANSETRON 4 MG ODT TABLET PO PRN (22:15)
[2017-01-27] MEDS: ATORVASTATIN 20 MG TABLET PO SCH (22:34)
[2017-01-27] MEDS: METFORMIN ER HCL 500 MG TAB.ER.24H PO SCH (22:34)
[2017-01-27] MEDS: DULOXETINE HCL 30 MG CAPSULE.DR PO SCH (22:34)
[2017-01-27] MEDS: DRONEDARONE HCL 400 MG TABLET PO SCH (22:35)
[2017-01-27] MEDS: TEMAZEPAM 15 MG CAPSULE PO SCH (22:35)
[2017-01-28] MEDS: IPRATROPIUM/ALBUTEROL (0.5MG/3MG) NEB INH SCH ×6 (05:56→21:47)
[2017-01-28] MEDS: PANTOPRAZOLE SODIUM 40 MG TABLET PO SCH (06:37)
[2017-01-28] MEDS: LEVOTHYROXINE SODIUM 50 MCG TABLET PO SCH (06:37)
--- NOTE | 2017-01-28 06:49 | History & Physical ---
History of Present Illness - Date of Service Date of Service for History & Physical: 01/28/17 - History of Present Illness Admitting Diagnosis: Acute asthma exacerbation. Acute exacerbation CHF History of Present Illness: Mrs. Lock is a 81 y/o female coming in with a one week history progressive shortness of breath, cough wheezing and leg swelling. At baseline she has shortness of breath due to her COPD but has not been using her albuterol nebulizer or CPAP machine at home. The patient describes chronic non-productive cough and increased wheezing over the past few days and presented to her PCP and was given a pill put is not sure what it was. She says she did not have any improvement in symptoms and decided to call EMS. She denies fever, chills, recent travel or sick contacts. The patient reports being up to date with her annual flu vaccine. She also has a known history of extensive coronary artery disease s/p CABG and stents, chronic a fib and systolic HF and says that she is compliant with medications. On arrival to ED the patient was noted to have elevated BNP, a fib on ECG, proteinuria, leukocyte esterases on UA but not significant changes on chest xray. Travel Screening - Travel/Exposure Within Last 30 Days Have you traveled within the last 30 days?: No - Travel/Exposure Within Last Year Have you traveled outside the [place] in the last year?: No - Additonal Travel Details Have you been exposed to anyone with a communicable illness?: No - Travel Symptoms Symptom Screening: None Review of Systems Constitutional: Denies: Chills, Fever, Malaise, Night sweats Eyes: Denies: Eye discharge, Eye pain ENT: Denies: Congestion, Ear pain, Epistaxis Respiratory: Reports: Cough, Dyspnea, Wheezes Cardiovascular: Reports: Edema. Denies: Chest pain, Dyspnea on exertion Endocrine: Denies: Fatigue, Heat or cold intolerance Gastrointestinal: Denies: Abdominal pain, Nausea, Vomiting Genitourinary: Denies: Incontinence, Retention Musculoskeletal: Denies: Arthralgia, Back pain, Gout, Joint swelling Skin: Denies: Bruising, Change in color Neurological: Denies: Abnormal gait, Confusion Psychiatric: Denies: Anxiety Hematological/Lymphatic: Denies: Anemia, Blood Clots Past Medical History - SOCIAL HISTORY Smoking Status: Former smoker Drug Use: None - RESPIRATORY Hx Respiratory Disorders: Yes Hx Asthma: Yes Hx Sleep Apnea: Yes (non-compliant with CPAP) Hx of CPAP: Yes Comment:: CPAP - CARDIOVASCULAR Hx Cardio Disorders: Yes Hx Abnormal EKG: Yes Hx Cardiac Cath: Yes (14 stents) Hx CHF: Yes Hx Edema: Yes Hx Heart Attack: Yes Hx Hypertension: Yes Hx Irregular Heartbeat: Yes Hx Vascular Disease: Yes Comment:: high cholesterol - NEURO Hx Neuro Disorders: Yes Hx TIA: Yes - GI Hx GI Disorders: Yes Hx Reflux: Yes Hx Obstructive Bowel: Yes Comment:: HX bowel CA - Hx Genitourinary Disorders: Yes Hx Bladder Problem: Yes - ENDOCRINE Hx Endocrine Disorders: Yes Hx Diabetes: Yes Hx Thyroid Disease: Yes - MUSCULOSKELETAL Hx Musculoskeletal Disorders: Yes Hx Arthritis: Yes Hx Back Injury: Yes Hx Fibromyalgia: Yes Hx Musculoskeletal Disease: Yes Hx Osteoporosis: Yes (osteopenia) Comment:: diabetic neuropathy - PSYCH Hx Psych Problems: Yes Hx Anxiety: Yes Hx Depression: Yes - HEMATOLOGY/ONCOLOGY Hx Hematology/Oncology Disorders: Yes Hx Cancer: Yes (ovarian, bowel, mouth) Hx Chemotherapy: No Hx Radiation Therapy: Yes Hx Blood Transfusions: Yes Family Medical History Hx Cancer: Father, Mother, Brother/Sister Hx Diabetes: Mother, Brother/Sister H&P Meds/Allergies - Allergies Allergies: Allergies Allergy/AdvReac Type Severity Reaction Status Date / Time allopurinol [ALLOPURINOL] Allergy Unknown SWELLING Verified 09/15/16 16:54 (GENERAL) metoclopramide HCl Allergy Unknown SWELLING Verified 09/15/16 16:54 [From REGLAN] (GENERAL) ranitidine HCl [From ZANTAC] Allergy Unknown SWELLING Verified 09/15/16 16:54 (GENERAL) Sulfa (Sulfonamide Allergy Unknown SWELLING Verified 09/15/16 16:54 Antibiotics) (GENERAL) [SULFA (SULFONAMIDE ANTIBIOTICS)] abciximab [From Reopro] Allergy RASH Verified 09/15/16 16:54 eptifibatide Allergy RASH Verified 09/15/16 16:54 [From Integrilin] NSAIDS (Non-Steroidal Allergy RASH Verified 09/15/16 16:54 Anti-Inflamma verapamil HCl [From CALAN] AdvReac Unknown NAUSEA Verified 09/15/16 16:54 - Home Medications Home Medications Medication Instructions Recorded Confirmed Last Taken Alprazolam [Alprazolam] 0.25 mg PO BID 01/27/17 01/27/17 Unknown Aspirin [Aspir-Low] 81 mg PO DAILY 01/27/17 01/27/17 Unknown Atorvastatin Calcium [Lipitor] 20 mg PO QHS 01/27/17 01/27/17 Unknown Clopidogrel Bisulfate [Clopidogrel] 75 mg PO DAILY 01/27/17 01/27/17 Unknown Dronedarone HCl [Multaq] 400 mg PO BID 01/27/17 01/27/17 Unknown Duloxetine HCl [Cymbalta] 30 mg PO BID 01/27/17 01/27/17 Unknown Ferrous Sulfate [Iron] 325 mg PO BID 01/27/17 01/27/17 Unknown Furosemide [Lasix] 20 mg PO BID 01/27/17 01/27/17 Unknown Insulin Detemir [Levemir Flextouch] 01/27/17 Unknown Isosorbide Mononitrate [Imdur] 30 mg PO DAILY 01/27/17 01/27/17 Unknown Levothyroxine Sodium 50 mcg PO QAM 01/27/17 01/27/17 Unknown Metformin ER HCl [Glucophage Xr] 500 mg PO BID 01/27/17 01/27/17 Unknown Nitroglycerin [Nitrostat] 0.4 mg SL Q5MIN PRN 01/27/17 01/27/17 Unknown Nortriptyline HCl 20 mg PO QHS 01/27/17 01/27/17 Unknown Omeprazole [Prilosec] 20 mg PO QAM 01/27/17 01/27/17 Unknown Ondansetron [Zofran Odt] 4 mg PO Q8H 01/27/17 01/27/17 Unknown Temazepam [Restoril] 15 mg PO QHS 01/27/17 01/27/17 Unknown Tiotropium [place] [Spiriva] 18 mcg IH DAILY 01/27/17 01/27/17 Unknown - Active Medications Active Medications: Current Medications Albuterol Sulfate () 2.5 mg INH RESP.Q4H PRN PRN Reason: DIFFICULTY IN BREATHING Last Admin: 01/28/17 02:26 Dose: 2.5 mg Albuterol/Ipratropium (Duoneb) 3 ml INH RESP.Q4H.[facility] Last Admin: 01/28/17 05:56 Dose: 3 ml Alprazolam (Xanax) 0.25 mg PO BID PRN PRN Reason: ANXIETY Aspirin (Ecotrin (Ec)) 81 mg PO DAILY [facility] Atorvastatin Calcium (Lipitor) 20 mg PO QHS [facility] Last Admin: 01/27/17 22:34 Dose: 20 mg Clopidogrel Bisulfate (Plavix) 75 mg PO DAILY [facility] Dronedarone (Multaq) 400 mg PO BID [facility] Last Admin: 01/27/17 22:35 Dose: 400 mg Duloxetine HCl (Cymbalta) 30 mg PO BID [facility] Last Admin: 01/27/17 22:34 Dose: 30 mg Furosemide (Lasix) 20 mg PO BIDDIUR [facility] Ceftriaxone Sodium 1 gm/ (Sodium Chloride) 100 mls @ 100 mls/hr IVPB Q24H [facility] Stop: 02/02/17 20:01 Isosorbide Mononitrate (Imdur) 30 mg PO DAILY [facility] Levothyroxine Sodium (Synthroid) 50 mcg PO DAILYTHY [facility] Last Admin: 01/28/17 06:37 Dose: 50 mcg Metformin HCl (Glucophage Xr) 500 mg PO BID [facility] Last Admin: 01/27/17 22:34 Dose: 500 mg Methylprednisolone Sodium Succinate (Solu-Medrol) 125 mg IVP DAILY [facility] Nitroglycerin (Nitrostat 0.4mg) 0.4 mg SL Q5MIN PRN PRN Reason: Chest Pain Non-Formulary Medication (Nortriptyline Hcl [Nortriptyline Hcl]) 20 mg PO QHS [facility] Ondansetron HCl (Zofran Odt) 4 mg PO Q8H PRN PRN Reason: NAUSEA Pantoprazole Sodium ([facility]ix) [facility] Last Admin: 01/28/17 06:37 Dose: 40 mg Temazepam (Restoril) 15 mg PO QHS [facility] Last Admin: 01/27/17 22:35 Dose: 15 mg Physical Exam - Vital Signs Vital Signs: Vital Signs - Last 24 Hrs Temp Pulse Pulse Resp BP Pulse Ox 01/28/17 05:56 111 H 20 98 01/28/17 05:27 98.0 F 88 24 133/83 96 01/28/17 02:26 81 20 100 01/27/17 21:43 86 20 95 01/27/17 21:40 98.8 F 95 H 24 123/82 97 01/27/17 21:39 86 18 98 01/27/17 21:05 18 - General General Appearance: Alert, Oriented x3, Cooperative, Moderate distress, Other ( receiving duoneb on arrival) Limitations: No limitations - Head Head exam: Atraumatic, Normocephalic, Normal inspection Head exam detail: negative: Abrasion, Contusion, Nazario's sign, General tenderness, Hematoma, Laceration - Eye Eye exam: Normal appearance. negative: Conjunctival injection, Periorbital swelling, Periorbital tenderness, Scleral icterus - ENT Ear exam: negative: Auricular hematoma, Auricular trauma Nasal Exam: negative: Active bleeding, Discharge, Dried blood, Foreign body Mouth exam: negative: Drooling, Laceration, Muffled voice, Tongue elevation - Neck Neck exam: Normal inspection. negative: Meningismus, Tenderness - Respiratory Respiratory exam: Decreased breath sounds, Respiratory distress, Wheezes. negative: Rhonchi, Stridor - Cardiovascular Cardiovascular Exam: Normal heart sounds, Irregular rhythm - GI/Abdominal GI/Abdominal exam: Soft. negative: Rebound, Rigid, Tenderness - Rectal Rectal exam: Deferred - exam: Deferred - Extremities Extremities exam: Pedal edema (1+ bialteral LW edema). negative: Calf tenderness, Tenderness - Back Back exam: Denies: CVA tenderness (R), CVA tenderness (L) - Neurological Neurological exam: Alert, Oriented X3 - Psychiatric Psychiatric exam: Normal affect, Normal mood - Skin Skin exam: Normal color. negative: Abrasion Type of lesion: negative: abrasion Results - Labs Result Diagrams: 01/27/17 18:51 01/27/17 18:51 VTE H&P Assessment - Risk for VTE Risk for VTE: Yes Risk Level: High Risk Assessment Date: 01/28/17 Risk Assessment Time: 12:19 VTE Orders Placed or Will Be Placed: Yes Plan - Detailed Diagnosis and Plan (1) Asthma with exacerbation Plan: - CXR shows chronic changes but no acute findings. - oxygen to keep sats > 92%, peak flow - duonebs q4H, albuterol Q2H PRN, tessalone pearles TID for chronic cough. Solumedrol IV @ 125mg QD, reduce to 60mg QD - aspiration precautions, elevate head of bed >30 deg. Protonix 40mg QD, tight glycemic control on steroids, - evaluate for flu/pneumo vaccines. - nebulizer on d/c - to discuss with SW. Current Visit: Yes Status: Acute Base Code: J45.901 - UNSPECIFIED ASTHMA WITH (ACUTE) EXACERBATION (2) CHF exacerbation Plan: - mild decompensation w/ elevated BNP > 3000, CXR - no congestion or signs of overload. No recent echo. - cont Lasix 20mg PO, ASA 81 mg, Atorvastatin 20mg, Imdur 30mg. - should be on CARLOS, no allergy noted. - fluid restriction w/ daily weights and I/Os - opt f/u w/ cardiology for medication optimization. Current Visit: Yes Status: Acute Qualifiers: Congestive heart failure type: unspecified congestive heart failure type Qualified Code(s): I50.9 - Heart failure, unspecified Base Code: I50.9 - HEART FAILURE, UNSPECIFIED (3) Diabetes mellitus Plan: - CBG 355, pt on high dose steroids. - Accuchecks QAC/QHS, - on Lantus 65 units QHS as per home dose, low dose sliding TIDAC Current Visit: Yes Status: Acute Qualifiers: Diabetes mellitus type: type 2 Base Code: E11.9 - TYPE 2 DIABETES MELLITUS WITHOUT COMPLICATIONS (4) Hypothyroid Plan: - cont Levothyroxine 50 mcg Current Visit: Yes Status: Acute Base Code: E03.9 - HYPOTHYROIDISM, UNSPECIFIED (5) Chronic atrial fibrillation Plan: - EKG showed a fib on admission w/o any acute ST-T changes. - cont on telemetry monitoring - on Multaq 400mg BID, ASA 81 mg, - pts CHADSVAC - 5, not on anticoagulation. Current Visit: Yes Status: Acute Base Code: I48.2 - CHRONIC ATRIAL FIBRILLATION (6) UTI (urinary tract infection) Plan: - asymptomatic bacturia w/ UA + leukocytes, proteinuria. - on Rocephin 1gm IV QD ordered Current Visit: Yes Status: Acute Qualifiers: Urinary tract infection type: acute cystitis Hematuria presence: without hematuria Qualified Code(s): N30.00 - Acute cystitis without hematuria Base Code: N39.0 - URINARY TRACT INFECTION, SITE NOT SPECIFIED (7) BOGDAN (obstructive sleep apnea) Plan: - pt reports non-compliance with CPAP machine. Current Visit: Yes Status: Acute Base Code: G47.33 - OBSTRUCTIVE SLEEP APNEA (ADULT) (PEDIATRIC) (8) Anxiety and depression Plan: - on Cymbalta and xanax. Current Visit: Yes Status: Acute Base Code: F41.8 - OTHER SPECIFIED ANXIETY DISORDERS (9) DVT prophylaxis Plan: - Enoxaparin 40mg QD Current Visit: Yes Status: Acute Base Code: GEC5752 - (10) Code status needs review Plan: Will discuss code status with patient and update in chart. Current Visit: Yes Status: Acute Base Code: [id number] - - Disposition Likely d/c in 48 hours if showing improvement in symptoms. Pt needs tight outpatient follow up for CHF, and BOGDAN.
--- NOTE | 2017-01-28 07:19 | RADIOLOGY REPORT ---
EXAM: CHEST, TWO VIEWS HISTORY: COUGH. TECHNIQUE: Frontal and lateral views of the chest were obtained. Comparison: 10/31/15 chest. FINDINGS: The heart size is normal. Sternotomy wires with mediastinal clips. [id number] catheter in place. Osteopenia. No pneumothorax. Coarse, chronic appearing interstitial changes bilaterally. IMPRESSION: NO ACUTE CARDIOPULMONARY PROCESS. STABLE POST SURGICAL CHANGE. CHRONIC INTERSTITIAL CHANGE BILATERALLY. JOB [facility]BER: [id number] [facility]
[2017-01-28] MEDS: DRONEDARONE HCL 400 MG TABLET PO SCH ×2 (09:31→22:24)
[2017-01-28] MEDS: METFORMIN ER HCL 500 MG TAB.ER.24H PO SCH (09:31)
[2017-01-28] MEDS: DULOXETINE HCL 30 MG CAPSULE.DR PO SCH ×2 (09:32→22:25)
[2017-01-28] MEDS: FUROSEMIDE 20 MG TABLET PO SCH ×2 (09:32→15:32)
[2017-01-28] MEDS: METHYLPREDNISOLONE PF 125MG/VIAL IVP SCH (09:32)
[2017-01-28] MEDS: ASPIRIN 81 MG TABEC PO SCH (09:32)
[2017-01-28] MEDS ORDERED: CLOPIDOGREL 75MG TABLET PO SCH (10:00)
[2017-01-28] MEDS ORDERED: UMECLIDINIUM BROMIDE (INCRUSE) 62.5MCG IH SCH (10:00)
[2017-01-28] MEDS: BENZONATATE 100 MG CAPSULE PO PRN (12:25)
[2017-01-28] MEDS: ENOXAPARIN 40 MG/0.4 ML SYR SC SCH (12:27)
[2017-01-28] MEDS: ISOSORBIDE MONONITRATE 30 MG TAB.ER.24H PO SCH ×2 (12:28→12:30)
[2017-01-28] MEDS: LEVEMIR FLEXTOUCH 100 UNIT/ML INSULIN PEN SQ SCH ×2 (12:40→22:26)
[2017-01-28] MEDS ORDERED: AL HYDROX/MAG HYDROX 30ML UD PO PRN (17:08)
[2017-01-28] MEDS ORDERED: ACETAMINOPHEN 500 MG TABLET PO PRN (18:22)
[2017-01-28] MEDS: CEFTRIAXONE SODIUM 1 GM in 0.9% SODIUM CHLORIDE 50ML 50 ML IVPB SCH (20:54)
[2017-01-28] MEDS: DOCUSATE SODIUM 100 MG CAPSULE PO SCH (22:24)
[2017-01-28] MEDS: TEMAZEPAM 15 MG CAPSULE PO SCH (22:24)
[2017-01-28] MEDS: ATORVASTATIN 20 MG TABLET PO SCH (22:26)
[2017-01-29] MEDS: PANTOPRAZOLE SODIUM 40 MG TABLET PO SCH (06:02)
[2017-01-29] MEDS: IPRATROPIUM/ALBUTEROL (0.5MG/3MG) NEB INH SCH ×2 (06:02→11:26)
[2017-01-29] MEDS: LEVOTHYROXINE SODIUM 50 MCG TABLET PO SCH (06:02)
[2017-01-29] MEDS: BENZONATATE 100 MG CAPSULE PO PRN ×2 (06:02→17:40)
[2017-01-29 06:19] LABS: CREATININE 1.3 mg/dL (0.5-0.9)
[2017-01-29 06:53] LABS: THYROID STIMULATING HORMONE 1.26 uIU/mL (0.270-4.20)
[2017-01-29] MEDS ORDERED: NOVOLOG FLEXPEN (INSULIN ASPART) 100 UNITS/ML SQ ONE ×2 (07:45→09:33)
[2017-01-29] MEDS ORDERED: DEXTROSE 50 % IVP 50 ML DISP.SYRIN IVP ONE ×2 (07:50→10:04)
[2017-01-29] MEDS ORDERED: FUROSEMIDE IV 40MG/4ML VIAL IVP ONE (09:27)
[2017-01-29] MEDS: LEVEMIR FLEXTOUCH 100 UNIT/ML INSULIN PEN SQ SCH ×2 (09:43→21:28)
[2017-01-29] MEDS: METHYLPREDNISOLONE PF 125MG/VIAL IVP SCH ×2 (09:43→09:56)
[2017-01-29] MEDS: DOCUSATE SODIUM 100 MG CAPSULE PO SCH ×2 (09:45→21:27)
[2017-01-29] MEDS: ISOSORBIDE MONONITRATE 30 MG TAB.ER.24H PO SCH (09:45)
[2017-01-29] MEDS: DULOXETINE HCL 30 MG CAPSULE.DR PO SCH ×2 (09:45→21:28)
[2017-01-29] MEDS: DRONEDARONE HCL 400 MG TABLET PO SCH ×2 (09:45→21:30)
[2017-01-29] MEDS: ENOXAPARIN 40 MG/0.4 ML SYR SC SCH (09:45)
[2017-01-29] MEDS: ASPIRIN 81 MG TABEC PO SCH (09:45)
[2017-01-29] MEDS: FUROSEMIDE 20 MG TABLET PO SCH ×2 (09:46→17:39)
--- NOTE | 2017-01-29 11:23 | Physician Progress Note ---
Subjective - Date Date of Physician Progress Note: 01/29/17 - Subjective Subjective Comment: Patient AOX3, complains of constipation and intermittent cough. Location: Abdomen Radiation: Non-Radiating Severity scale (1-10): 3 Quality: Aching Consistency: Intermittent Objective - Vital Signs Vital Signs: Vital Signs - Last 24 Hrs Temp Pulse Pulse Resp BP Pulse Ox 01/29/17 09:00 98.1 F 101 H 18 97/45 100 01/29/17 06:02 86 20 98 01/28/17 22:07 98.8 F 97 H 28 H 142/62 96 01/28/17 21:49 100 H 20 100 01/28/17 21:00 20 01/28/17 17:00 98.5 F 89 18 131/76 96 - General General Appearance: Alert, Oriented x3, Cooperative, Moderate distress, Other ( receiving duoneb on arrival) Limitations: No limitations - Head Head exam: Atraumatic, Normocephalic, Normal inspection Head exam detail: negative: Abrasion, Contusion, Nazario's sign, General tenderness, Hematoma, Laceration - Eye Eye exam: Normal appearance. negative: Conjunctival injection, Periorbital swelling, Periorbital tenderness, Scleral icterus - ENT Ear exam: negative: Auricular hematoma, Auricular trauma Nasal Exam: negative: Active bleeding, Discharge, Dried blood, Foreign body Mouth exam: negative: Drooling, Laceration, Muffled voice, Tongue elevation - Neck Neck exam: Normal inspection. negative: Meningismus, Tenderness - Respiratory Respiratory exam: Decreased breath sounds, Respiratory distress, Wheezes. negative: Rhonchi, Stridor - Cardiovascular Cardiovascular Exam: Normal heart sounds, Irregular rhythm Peripheral Pulses: 2+: Radial (R), Radial (L) - GI/Abdominal GI/Abdominal exam: Soft, Normal bowel sounds, Tenderness (lower quadrants). negative: Rebound, Rigid - Rectal Rectal exam: Deferred - exam: Deferred - Extremities Extremities exam: Pedal edema (1+ bialteral LW edema). negative: Calf tenderness, Tenderness - Back Back exam: Denies: CVA tenderness (R), CVA tenderness (L) - Neurological Neurological exam: Alert, Oriented X3 - Psychiatric Psychiatric exam: Normal affect, Normal mood - Skin Skin exam: Normal color. negative: Abrasion Type of lesion: negative: abrasion Assessment and Plan - Assessment and Plan (1) Hyperkalemia Plan: - K+ 5.4 --> 6. 2 non-hemolyzed - EKG: no acute changes, previously seen a fib, Qtc prolongation, w/ incomplete LBBB - ordered 10 units insulin, 1 amp D50, Lasix IV 40mg, Albuterol treatment. - repeat K and Mg to be drawn. - will order kayexalate if pt able to move bowels. Current Visit: Yes Status: Acute Base Code: E87.5 - HYPERKALEMIA (2) Constipation Plan: - pt reports last bowel movement several days ago. - on Colace, ordered Mg/Ox cocktail. Will order Miralax. - attempt at manual disimpaction: hard stool and tamia blood. Current Visit: Yes Status: Acute Base Code: K59.00 - CONSTIPATION, UNSPECIFIED (3) Asthma with exacerbation Plan: - Improved respiratory status, oxygen to keep sats > 92%, peak flow - duonebs q4H, albuterol Q2H PRN, tessalone pearles TID for chronic cough. Solumedrol IV 60mg QD - aspiration precautions, elevate head of bed >30 deg. Protonix 40mg QD, tight glycemic control on steroids, Current Visit: Yes Status: Acute Base Code: J45.901 - UNSPECIFIED ASTHMA WITH (ACUTE) EXACERBATION (4) CHF exacerbation Plan: - mild decompensation w/ elevated BNP > 3000, CXR - no congestion or signs of overload. No recent echo. - cont Lasix 20mg PO, ASA 81 mg, Atorvastatin 20mg, Imdur 30mg. - should be on CARLOS, no allergy noted. - fluid restriction w/ daily weights and I/Os - opt f/u w/ cardiology for medication optimization. Current Visit: Yes Status: Acute Qualifiers: Congestive heart failure type: unspecified congestive heart failure type Qualified Code(s): I50.9 - Heart failure, unspecified Base Code: I50.9 - HEART FAILURE, UNSPECIFIED (5) Diabetes mellitus Plan: - CBG , 339 --> 350 this am. - on Lantus 65 units QHS as per home dose, started Novolog 12 units TIDAC - Accuchecks QAC/QHS, Diabetic diet - gave additional 10 units Novolg due to hyperkalemia. Current Visit: Yes Status: Acute Qualifiers: Diabetes mellitus type: type 2 Base Code: E11.9 - TYPE 2 DIABETES MELLITUS WITHOUT COMPLICATIONS (6) Hypothyroid Current Visit: Yes Status: Acute Base Code: E03.9 - HYPOTHYROIDISM, UNSPECIFIED (7) Chronic atrial fibrillation Current Visit: Yes Status: Acute Base Code: I48.2 - CHRONIC ATRIAL FIBRILLATION (8) UTI (urinary tract infection) Plan: - asymptomatic bacturia w/ UA + leukocytes, proteinuria. - on Rocephin 1gm IV QD ordered Current Visit: Yes Status: Acute Qualifiers: Urinary tract infection type: acute cystitis Hematuria presence: without hematuria Qualified Code(s): N30.00 - Acute cystitis without hematuria Base Code: N39.0 - URINARY TRACT INFECTION, SITE NOT SPECIFIED (9) BOGDAN (obstructive sleep apnea) Plan: - pt reports non-compliance with CPAP machine. Current Visit: Yes Status: Acute Base Code: G47.33 - OBSTRUCTIVE SLEEP APNEA (ADULT) (PEDIATRIC) (10) Anxiety and depression Plan: - on Cymbalta and xanax. Current Visit: Yes Status: Acute Base Code: F41.8 - OTHER SPECIFIED ANXIETY DISORDERS (11) DVT prophylaxis Plan: - Enoxaparin 40mg QD Current Visit: Yes Status: Acute Base Code: NJH7224 - (12) Code status needs review Plan: Will discuss code status with patient and update in chart. Current Visit: Yes Status: Acute Base Code: [id number] - - Disposition Disposition: Repeat labs for hyperkalemia and glycemic control needed prior to D/C. Home meds to be reconciled. Results - Labs Result Diagrams: 01/27/17 18:51 01/29/17 05:50 Labs Last 24 Hours: Laboratory Results - last 24 hr 01/28/17 01/28/17 01/28/17 11:30 17:00 22:00 Sodium Potassium Chloride Carbon Dioxide Anion Gap BUN Creatinine Estimated GFR POC Glucose 349 H 323 H 339 H Random Glucose Calcium Magnesium Triglycerides Cholesterol LDL Cholesterol Measurd VLDL Cholesterol HDL Cholesterol TSH 01/29/17 01/29/17 01/29/17 05:50 05:50 06:00 Sodium 137 Potassium 6.2 H* Chloride 100 Carbon Dioxide 24.0 Anion Gap 13.0 BUN 43 H Creatinine 1.3 H Estimated GFR 42 POC Glucose Random Glucose 350 H Calcium 8.4 L Magnesium 2.5 H Triglycerides 128 Cholesterol 138 LDL Cholesterol Measurd 77.0 VLDL Cholesterol 25 HDL Cholesterol 49 TSH 1.26 DVT/PE Assessment - Risk for VTE Risk for VTE: No Risk Level: High Risk Assessment Date: 01/28/17 Risk Assessment Time: 12:19 VTE Orders Placed or Will Be Placed: Yes - Active Medicaitons Current Medications: Current Medications Acetaminophen (Tylenol 500mg Tab) 1,000 mg PO Q6H PRN PRN Reason: Pain - General Last Admin: 01/28/17 18:27 Dose: 1,000 mg Al Hydroxide/Mg Hydroxide (Maalox) 30 ml PO Q4H PRN PRN Reason: GI UPSET Last Admin: 01/28/17 17:14 Dose: 30 ml Albuterol Sulfate () 2.5 mg INH RESP.Q4H PRN PRN Reason: DIFFICULTY IN BREATHING Last Admin: 01/28/17 02:26 Dose: 2.5 mg Albuterol/Ipratropium (Duoneb) 3 ml INH RESP.Q4H.[facility] Last Admin: 01/29/17 06:02 Dose: 3 ml Alprazolam (Xanax) 0.25 mg PO BID PRN PRN Reason: ANXIETY Aspirin (Ecotrin (Ec)) 81 mg PO DAILY [facility] Last Admin: 01/29/17 09:45 Dose: 81 mg Atorvastatin Calcium (Lipitor) 20 mg PO QHS [facility] Last Admin: 01/28/17 22:26 Dose: 20 mg Benzonatate (Tessalon) 100 mg PO TID PRN PRN Reason: COUGH Last Admin: 01/29/17 06:02 Dose: 100 mg Docusate Sodium (Colace) 100 mg PO BID [facility] Last Admin: 01/29/17 09:45 Dose: 100 mg Dronedarone (Multaq) 400 mg PO BID [facility] Last Admin: 01/29/17 09:45 Dose: 400 mg Duloxetine HCl (Cymbalta) 30 mg PO BID [facility] Last Admin: 01/29/17 09:45 Dose: 30 mg Enoxaparin Sodium (Lovenox) 40 mg SC DAILY [facility] Last Admin: 01/29/17 09:45 Dose: 40 mg Furosemide (Lasix) 20 mg PO BIDDIUR [facility] Last Admin: 01/29/17 09:46 Dose: Not Given Ceftriaxone Sodium 1 gm/ (Sodium Chloride) 50 mls @ 100 mls/hr IVPB Q24H [facility] Stop: 02/02/17 20:01 Last Infusion: 01/28/17 21:45 Dose: Infused Insulin Detemir (Levemir Flextouch) 65 unit SQ QHS [facility] Last Admin: 01/29/17 09:43 Dose: 65 unit Isosorbide Mononitrate (Imdur) 30 mg PO DAILY [facility] Last Admin: 01/29/17 09:45 Dose: 30 mg Levothyroxine Sodium (Synthroid) 50 mcg PO DAILYTHY [facility] Last Admin: 01/29/17 06:02 Dose: 50 mcg Methylprednisolone Sodium Succinate (Solu-Medrol) 60 mg IVP DAILY [facility] Last Admin: 01/29/17 09:43 Dose: 60 mg Nitroglycerin (Nitrostat 0.4mg) 0.4 mg SL Q5MIN PRN PRN Reason: Chest Pain Ondansetron HCl (Zofran Odt) 4 mg PO Q8H PRN PRN Reason: NAUSEA [facility]op[facility]) [facility] Last Admin: 01/29/17 06:02 Dose: 40 mg Temazepam (Restoril) 15 mg PO QHS [facility] Last Admin: 01/28/17 22:24 Dose: 15 mg AMI Plan - Labs Result Diagrams: 01/27/17 18:51 01/29/17 05:50
[2017-01-29] MEDS: NOVOLOG FLEXPEN (INSULIN ASPART) 100 UNITS/ML SQ SCH (17:39)
[2017-01-29] MEDS: GUAIFENESIN 600 MG TABCR PO SCH ×2 (18:22→21:29)
[2017-01-29] MEDS: CEFTRIAXONE SODIUM 1 GM in 0.9% SODIUM CHLORIDE 50ML 50 ML IVPB SCH (20:12)
[2017-01-29] MEDS: TEMAZEPAM 15 MG CAPSULE PO SCH (21:29)
[2017-01-29] MEDS: ATORVASTATIN 20 MG TABLET PO SCH (21:29)
[2017-01-30] MEDS: LEVOTHYROXINE SODIUM 50 MCG TABLET PO SCH (06:16)
[2017-01-30] MEDS: PANTOPRAZOLE SODIUM 40 MG TABLET PO SCH (06:16)
[2017-01-30] MEDS: NOVOLOG FLEXPEN (INSULIN ASPART) 100 UNITS/ML SQ SCH ×2 (07:42→12:43)
[2017-01-30 09:59] LABS: CREATININE 1.1 mg/dL (0.5-0.9)
--- NOTE | 2017-01-30 10:57 | Discharge Summary ---
Providers Discharge Summary Date: 01/30/17 Date of admission: 01/27/17 20:48 Attending physician: PJ KEENE Primary care physician: Paras Powell Physical Exam - Vital Signs Vital Signs: Vital Signs - Last 24 Hrs Temp Pulse Resp BP Pulse Ox 01/30/17 09:00 99.4 F 102 H 20 110/72 99 01/29/17 21:00 20 01/29/17 20:12 98.8 F 106 H 24 120/73 97 01/29/17 18:30 98.2 F 120 H 22 148/96 100 - General General Appearance: Alert, Oriented x3, Cooperative, Moderate distress, Other ( receiving duoneb on arrival) Limitations: No limitations - Head Head exam: Atraumatic, Normocephalic, Normal inspection Head exam detail: negative: Abrasion, Contusion, Nazario's sign, General tenderness, Hematoma, Laceration - Eye Eye exam: Normal appearance. negative: Conjunctival injection, Periorbital swelling, Periorbital tenderness, Scleral icterus - ENT Ear exam: negative: Auricular hematoma, Auricular trauma Nasal Exam: negative: Active bleeding, Discharge, Dried blood, Foreign body Mouth exam: negative: Drooling, Laceration, Muffled voice, Tongue elevation - Neck Neck exam: Normal inspection. negative: Meningismus, Tenderness - Respiratory Respiratory exam: Decreased breath sounds, Respiratory distress, Wheezes. negative: Rhonchi, Stridor - Cardiovascular Cardiovascular Exam: Normal heart sounds, Irregular rhythm Peripheral Pulses: 2+: Radial (R), Radial (L) - GI/Abdominal GI/Abdominal exam: Soft, Normal bowel sounds, Tenderness (lower quadrants). negative: Rebound, Rigid - Rectal Rectal exam: Deferred - exam: Deferred - Extremities Extremities exam: Pedal edema (1+ bialteral LW edema). negative: Calf tenderness, Tenderness - Back Back exam: Denies: CVA tenderness (R), CVA tenderness (L) - Neurological Neurological exam: Alert, Oriented X3 - Psychiatric Psychiatric exam: Normal affect, Normal mood - Skin Skin exam: Normal color. negative: Abrasion Type of lesion: negative: abrasion Hospitalization - Hospitalization Admission Diagnosis: Acute asthma exacerbation. Acute exacerbation CHF - Problem List/Discharge Diagnosis (1) Hyperkalemia Plan: - K+ 5.4 --> 6. 2 non-hemolyzed - EKG: no acute changes, previously seen a fib, Qtc prolongation, w/ incomplete LBBB - ordered 10 units insulin, 1 amp D50, Lasix IV 40mg, Albuterol treatment. - repeat K and Mg to be drawn. - will order kayexalate if pt able to move bowels. Status: Acute Base Code: E87.5 - HYPERKALEMIA (2) Constipation Plan: - pt reports last bowel movement several days ago. - on Colace, ordered Mg/Ox cocktail. Will order Miralax. - attempt at manual disimpaction: hard stool and tamia blood. Status: Acute Base Code: K59.00 - CONSTIPATION, UNSPECIFIED (3) Asthma with exacerbation Plan: - Improved respiratory status, oxygen to keep sats > 92%, peak flow - duonebs q4H, albuterol Q2H PRN, tessalone pearles TID for chronic cough. Solumedrol IV 60mg QD - aspiration precautions, elevate head of bed >30 deg. Protonix 40mg QD, tight glycemic control on steroids, Status: Acute Base Code: J45.901 - UNSPECIFIED ASTHMA WITH (ACUTE) EXACERBATION (4) CHF exacerbation Plan: - mild decompensation w/ elevated BNP > 3000, CXR - no congestion or signs of overload. No recent echo. - cont Lasix 20mg PO, ASA 81 mg, Atorvastatin 20mg, Imdur 30mg. - should be on CARLOS, no allergy noted. - fluid restriction w/ daily weights and I/Os - opt f/u w/ cardiology for medication optimization. Status: Acute Discharge Diagnosis: Congestive heart failure type: unspecified congestive heart failure type Qualified Code(s): I50.9 - Heart failure, unspecified Base Code: I50.9 - HEART FAILURE, UNSPECIFIED (5) Diabetes mellitus Plan: - CBG , 339 --> 350 this am. - on Lantus 65 units QHS as per home dose, started Novolog 12 units TIDAC - Accuchecks QAC/QHS, Diabetic diet - gave additional 10 units Novolg due to hyperkalemia. Status: Acute Discharge Diagnosis: Diabetes mellitus type: type 2 Base Code: E11.9 - TYPE 2 DIABETES MELLITUS WITHOUT COMPLICATIONS (6) Hypothyroid Plan: - cont Levothyroxine 50 mcg Status: Acute Base Code: E03.9 - HYPOTHYROIDISM, UNSPECIFIED (7) Chronic atrial fibrillation Plan: - EKG showed a fib on admission w/o any acute ST-T changes. - cont on telemetry monitoring - on Multaq 400mg BID, ASA 81 mg, - pts CHADSVAC - 5, not on anticoagulation. Status: Acute Base Code: I48.2 - CHRONIC ATRIAL FIBRILLATION (8) UTI (urinary tract infection) Plan: - asymptomatic bacturia w/ UA + leukocytes, proteinuria. - on Rocephin 1gm IV QD ordered Status: Acute Discharge Diagnosis: Urinary tract infection type: acute cystitis Hematuria presence: without hematuria Qualified Code(s): N30.00 - Acute cystitis without hematuria Base Code: N39.0 - URINARY TRACT INFECTION, SITE NOT SPECIFIED (9) BOGDAN (obstructive sleep apnea) Plan: - pt reports non-compliance with CPAP machine. Status: Acute Base Code: G47.33 - OBSTRUCTIVE SLEEP APNEA (ADULT) (PEDIATRIC) (10) Anxiety and depression Status: Acute Base Code: F41.8 - OTHER SPECIFIED ANXIETY DISORDERS (11) DVT prophylaxis Status: Acute Base Code: [id number] - (12) Code status needs review Status: Acute Base Code: [id number] - - Disposition Repeat labs for hyperkalemia and glycemic control needed prior to D/C. Home meds to be reconciled. - Hospitalization Course Disposition: Home, Self-Care Hospital Course: Ms. Lock is a 81 y/o female who comes in with complaint of shortness of breath. The patient had cough and increasing lower extremity swelling. She has a history of CHF and COPD and reports compliance with all medications. She denies fever, chills, or chest pain. The patient was admitted and started on IV lasix, antibiotics, steroids and respiratory therapy. She had significant ronchi, expiratory wheezing and chest radiograph without acute changes. The patient was started on duonebs Q4H and albuterol Q2H, and IV steroids 60mg Q8H. Day #2 - the patient's condition improved and Solumedrol 60mg IV was d/cd and she was transitioned to PO Prednisone 40mg QD. The patient was maintained on IV antibiotics and respiratory therapy. The patient then developed uncontrollable cough and was started on Tessalone pearles which seem to improve her cough. She also had significant elevations in CBG and was started on subcutaneous insulin TIDAC with QID accuchecks. PO Lasix was continued. Day #3 - the patient was changed to PO abx and continued Po steroids. Overnight she became hyperkalemic 6.2 and hyperglycemic > 350. She was started on basal insulin dosing and the patient became hypoglycemic and was immediately fed to rectify sugar levels. She was given an additional dose of insulin 10 units and 1 amp D50 and labs repeate for K correction. Patient also had significant constipation and was given Mg ox which significantly improved bowel movement. Day #4 - symptoms improved and the patient's glucose and K improved. She was d/ cd with antibiotics and steroid was d/cd. Procedures: Cardiology Procedures 01/29/17 06:52 EKG NOW Abnormal Labs: Abnormal Lab Results 01/28/17 01/28/17 01/28/17 Range/Units 07:49 11:30 17:00 Potassium (3.4-4.5) mmol/L BUN (8-23) mg/dL Creatinine (0.5-0.9) mg/dL POC Glucose 355 H 349 H 323 H (70-110) mg/dL Random Glucose (74-109) mg/dL Calcium (8.8-10.2) mg/dL Magnesium (1.6-2.4) mg/dL 01/28/17 01/29/17 01/29/17 Range/Units 22:00 05:50 06:00 Potassium 6.2 H* (3.4-4.5) mmol/L BUN 43 H (8-23) mg/dL Creatinine 1.3 H (0.5-0.9) mg/dL POC Glucose 339 H (70-110) mg/dL Random Glucose 350 H (74-109) mg/dL Calcium 8.4 L (8.8-10.2) mg/dL Magnesium 2.5 H (1.6-2.4) mg/dL 01/29/17 01/29/17 01/29/17 Range/Units 08:25 08:34 08:38 Potassium (3.4-4.5) mmol/L BUN (8-23) mg/dL Creatinine (0.5-0.9) mg/dL POC Glucose 324 H 303 H 324 H (70-110) mg/dL Random Glucose (74-109) mg/dL Calcium (8.8-10.2) mg/dL Magnesium (1.6-2.4) mg/dL 01/29/17 01/29/17 01/29/17 Range/Units 08:44 09:10 09:50 Potassium (3.4-4.5) mmol/L BUN (8-23) mg/dL Creatinine (0.5-0.9) mg/dL POC Glucose 299 H 324 H 264 H (70-110) mg/dL Random Glucose (74-109) mg/dL Calcium (8.8-10.2) mg/dL Magnesium (1.6-2.4) mg/dL 01/29/17 01/29/17 01/29/17 Range/Units 09:58 10:05 10:41 Potassium (3.4-4.5) mmol/L BUN (8-23) mg/dL Creatinine (0.5-0.9) mg/dL POC Glucose 268 H 251 H 245 H (70-110) mg/dL Random Glucose (74-109) mg/dL Calcium (8.8-10.2) mg/dL Magnesium (1.6-2.4) mg/dL 01/29/17 01/29/17 01/29/17 Range/Units 11:07 11:40 12:30 Potassium (3.4-4.5) mmol/L BUN (8-23) mg/dL Creatinine (0.5-0.9) mg/dL POC Glucose 198 H 207 H 245 H (70-110) mg/dL Random Glucose (74-109) mg/dL Calcium (8.8-10.2) mg/dL Magnesium (1.6-2.4) mg/dL 01/29/17 01/29/17 01/29/17 Range/Units 12:51 16:49 16:56 Potassium 5.6 H (3.4-4.5) mmol/L BUN (8-23) mg/dL Creatinine (0.5-0.9) mg/dL POC Glucose 383 H 285 H (70-110) mg/dL Random Glucose (74-109) mg/dL Calcium (8.8-10.2) mg/dL Magnesium (1.6-2.4) mg/dL 01/29/17 01/30/17 01/30/17 Range/Units 21:59 06:25 06:25 Potassium (3.4-4.5) mmol/L BUN (8-23) mg/dL Creatinine (0.5-0.9) mg/dL POC Glucose 218 H 42 L* (70-110) mg/dL Random Glucose 41 L* (74-109) mg/dL Calcium (8.8-10.2) mg/dL Magnesium (1.6-2.4) mg/dL 01/30/17 Range/Units 09:30 Potassium 4.8 H (3.4-4.5) mmol/L BUN 41 H (8-23) mg/dL Creatinine 1.1 H (0.5-0.9) mg/dL POC Glucose (70-110) mg/dL Random Glucose 155 H (74-109) mg/dL Calcium (8.8-10.2) mg/dL Magnesium (1.6-2.4) mg/dL Condition at Discharge: (2) Stable Discharge Medications - Discharge Medications Home Medications: Ambulatory Orders Aspirin [Aspir-Low] 81 mg PO DAILY 01/27/17 [Last Taken Unknown] Atorvastatin Calcium [Lipitor] 20 mg PO QHS 01/27/17 [Last Taken Unknown] Clopidogrel Bisulfate [Clopidogrel] 75 mg PO DAILY 01/27/17 [Last Taken Unknown] Dronedarone HCl [Multaq] 400 mg PO BID 01/27/17 [Last Taken Unknown] Duloxetine HCl [Cymbalta] 30 mg PO BID 01/27/17 [Last Taken Unknown] Furosemide [Lasix] 20 mg PO BID 01/27/17 [Last Taken Unknown] Insulin Detemir [Levemir Flextouch] 65 units SQ QHS 01/27/17 [Last Taken Unknown ] Isosorbide Mononitrate [Imdur] 30 mg PO DAILY 01/27/17 [Last Taken Unknown] Levothyroxine Sodium 50 mcg PO QAM 01/27/17 [Last Taken Unknown] Metformin ER HCl [Glucophage Xr] 500 mg PO BID 01/27/17 [Last Taken Unknown] Nitroglycerin [Nitrostat] 0.4 mg SL Q5MIN PRN 01/27/17 [Last Taken Unknown] Nortriptyline HCl 20 mg PO QHS 01/27/17 [Last Taken Unknown] Omeprazole [Prilosec] 20 mg PO QAM 01/27/17 [Last Taken Unknown] Ondansetron [Zofran Odt] 4 mg PO Q8H 01/27/17 [Last Taken Unknown] Tiotropium [place] [Spiriva] 18 mcg IH DAILY 01/27/17 [Last Taken Unknown] Gabapentin [Neurontin] 300 mg PO TID 01/29/17 [Last Taken Unknown] Lisinopril [Lisinopril] 10 tab PO DAILY 01/29/17 [Last Taken Unknown] Venlafaxine HCl 100 mg PO BID 01/29/17 [Last Taken Unknown] Discharge Plan - Discharge Instructions Instructions: Benzonatate (By mouth), Prednisone (By mouth), Guaifenesin (By mouth), Laxative, Stool Softeners (By mouth), Magnesium Hydroxide (By mouth), Heart Failure (DC), Urinary Tract Infection in Women (DC), Low-Sodium Diet (DC) Additional Instructions: 2 Activity: As tolerated 2 Diet: low salt, 2 L fluid restriction 2 Consults: [] 2 Follow Up: [Call Tuesday to schedule follow up appt with Dr. Powell for in 7-10 days] 2 Dressing/Wound Care: (Type) (Change) 2 Additional: [Continue home medications New Medications Prednisone 40mg x1 dose, take tomorrow Tessalon pearles 100mg three times per day as needed for cough mucinex 600mg twice per day for 7 more days colace 100mg twice per day to relieve constipation milk of magnesia for constipation Return to emergency room with any new or worsening symptoms] Quality Measures - Quality Measures Quality Measures: Atrial Fibrillation & Atrial Flutter: Chronic Anticoagulation Therapy, Advance Directives, Documentation of Current Medications in Medical Record, Elder Maltreatment Screen and Follow-Up Plan, Heart Failure, Screening for High Blood Pressure and F/U Documented - Current Medications Quality Measure: Measure #130: Documentation of Current Medications Documentation of Current Medications: <Current Medications Documented/Reviewed> [[id number]] - Blood Pressure Screening Quality Measure: Screening for High Blood Pressure and Follow-Up Documented Does Patient Have Any of the Following: Active Dx of HTN Blood Pressure Classification: Pre-Hypertensive BP Reading Systolic Measurement: 126 Diastolic Measurement: 89 Screening for High Blood Pressure: Patient Exclusion, Hx of HTN [G9744] - Atrial Fibrillation and Atrial Flutter Quality Measure: Atrial Fibrillation & Atrial Flutter: Chronic Anticoagulation Therapy Does Patient Have Any of the Following: No CHADS2 Risk Stratification: Prior Stroke/TIA or Systemic Embolism, Age 75 or Greater, Hypertension, Diabetes Mellitus, Heart Failure or Impaired LVSF Risk Stratification Summary: One or more high risk factors OR more than one moderate risk factor exists. [[id number]] Anticoagulation Therapy: Not Prescribed for Medical Reason [[id number]] Medical Reason for NOT Prescribing Anticoagulant: Risk of Bleeding - Heart Failure (CARLOS/ARB Therapy) Quality Measure: Heart Failure Left Ventricular Systolic Function: LV Ejection Fraction less than 40% [3021F] CARLOS Inhibitor or ARB Therapy for LVSD: Not Prescribed, Reason not Specified [ 4010F with 8P] - Heart Failure (Beta-yang Therapy) Quality Measure: Heart Failure Left Ventricular Systolic Function: LV Ejection Fraction less than 40% [3021F] Beta-Yang Therapy for LVEF < 40%: <Beta-Yang Therapy Prescribed> [P1150] - Advance Directives Quality Measure: Measure #47: Care Plan Advance Directives Established: Yes Advance Directives Information Provided To Patient: No Advance Directives on File: No Living Will: No Power of Design Teacher: Yes Advance Care Planning: <Care Plan/Decision Maker Not Decided; Discussed & Documented> [2424F] - Elder Abuse Suspicion Index Screening: Elder Abuse Suspicion Index Screening Rely on people for bathing, dressing, shopping, banking, etc: No Prevented from getting food, clothes, medication, etc: No Made to feel shamed or threatened by someone: No Forced to sign papers or use money against will: No Feel afraid, touched in ways not wanted or hurt physically: No Poor eye contact, withdrawn, malnourished, cuts or bruises: No Screening Result: Negative result EASI Reference Information: Meggan SELLERS, [place] C, Vanessa D, Irish Lo.Development and validation of a tool to assist physicians identification of elder abuse: The Elder Abuse Suspicion Index (EASI ). Journal of Elder Abuse and Neglect, 2008; 20 (3): 276-300. - Elder Maltreatment Screen Quality Measures: Elder Maltreatment Screen and Follow-Up Plan Elder Maltreatment Screen: <Negative, No Follow-Up Plan Required> [C3219]
[2017-01-30] MEDS: METHYLPREDNISOLONE PF 125MG/VIAL IVP SCH (11:33)
[2017-01-30] MEDS: GUAIFENESIN 600 MG TABCR PO SCH (11:34)
[2017-01-30] MEDS: FUROSEMIDE 20 MG TABLET PO SCH (11:34)
[2017-01-30] MEDS: DRONEDARONE HCL 400 MG TABLET PO SCH (11:34)
[2017-01-30] MEDS: DULOXETINE HCL 30 MG CAPSULE.DR PO SCH (11:34)
[2017-01-30] MEDS: ASPIRIN 81 MG TABEC PO SCH (11:34)
[2017-01-30] MEDS: DOCUSATE SODIUM 100 MG CAPSULE PO SCH (11:34)
[2017-01-30] MEDS: ENOXAPARIN 40 MG/0.4 ML SYR SC SCH (11:34)
[2017-01-30] MEDS: BENZONATATE 100 MG CAPSULE PO PRN (11:34)
[2017-01-30] MEDS: ISOSORBIDE MONONITRATE 30 MG TAB.ER.24H PO SCH (11:34)
== END 2017-01-30 14:10 | disposition home or self-care (01) | DRG 190 ==
LOC: ER 18:53 → OBSVTOIN 20:48 → MEDSURG 20:48
PROVIDERS: ADMIT Internal Medicine; ATTEND Internal Medicine
DX: J44.1 Chronic obstructive pulmonary disease with (acute) exacerbation (principal); I50.23 Acute on chronic systolic (congestive) heart failure; J45.41 Moderate persistent asthma with (acute) exacerbation; I25.810 Atherosclerosis of coronary artery bypass graft(s) without angina pectoris; N39.0 Urinary tract infection, site not specified; I48.2 Chronic atrial fibrillation; Z79.01 Long term (current) use of anticoagulants; E78.00 Pure hypercholesterolemia, unspecified; E03.9 Hypothyroidism, unspecified; Z87.891 Personal history of nicotine dependence; E11.9 Type 2 diabetes mellitus without complications; Z79.4 Long term (current) use of insulin; Z86.73 Personal history of transient ischemic attack (TIA), and cerebral infarction without residual deficits; Z79.84 Long term (current) use of oral hypoglycemic drugs
CPT/HCPCS: 36416; 71020; 80048; 80053; 80061; 81001; 82550; 82553; 82947; 82948; 83735; 83880; 84132; 84443; 84484; 85025; 93005; 93010; 94640; 96365; 96375; 99223; 99233; 99239; 99285; J1650; J1940; J2930; J7613

== ENCOUNTER 2017-06-08 22:37 | Emergency (ER) | payer MEDICARE, MEDICAID ==
[2017-06-08] MEDS ORDERED: FUROSEMIDE IV 40MG/4ML VIAL IVP ONE (22:48)
[2017-06-08 22:58] LABS: GRAN % 69.5 % (47-80); HEMATOCRIT 34.9 % (35.0-47.0); HEMOGLOBIN 10.6 gm/dl (11.6-16.0); LYMPH % 19.9 % (16-45); MEAN CELL VOLUME 84.1 fl (81-97); MEAN CORPUSCULAR HEMOGLOBIN 25.5 pg (27-33); MEAN CORPUSCULAR HGB CONC 30.4 g/dl (32-36); MEAN PLATELET VOLUME 10.4 fl (7.4-10.4); MONO % 10.6 % (0-9); PLATELET COUNT 73 K/uL (130-400); RED BLOOD COUNT 4.15 M/uL (3.80-5.40); RED CELL DISTRIBUTION WIDTH 15.8 % (11.5-14.5); WHITE BLOOD COUNT W/O DIFF 4.8 K/uL (4.2-12.2)
[2017-06-08 23:09] LABS: BLOOD UREA NITROGEN 38 mg/dL (8-23); CREATININE 1.2 mg/dL (0.5-0.9); EST GLOMERULAR FILTRATION RATE 46 mL/min
[2017-06-08 23:10] LABS: TOTAL PROTEIN 6.8 g/dL (6.6-8.7)
[2017-06-08 23:12] LABS: GLUCOSE,RANDOM 333 mg/dL (74-109)
[2017-06-08 23:14] LABS: ALT/SGPT 13 U/L (<33); AST/SGOT 11 U/L (10.0-35.0)
[2017-06-08 23:15] LABS: ALB/GLOB RATIO 1.6 (1.1-1.8); ALBUMIN 4.2 g/dL (4.0-5.0); ALKALINE PHOSPHATASE 94 U/L (35-104)
[2017-06-08] MEDS ORDERED: HUMULIN R 100 UNIT/ML VIAL SQ ONE (23:24)
[2017-06-08 23:42] LABS: URINE APPEARANCE CLEAR; URINE BILIRUBIN NEGATIVE (NEGATIVE); URINE BLOOD SMALL (NEGATIVE); URINE COLOR YELLOW; URINE KETONE NEGATIVE (NEGATIVE); URINE LEUKOCYTE ESTERASE SMALL (NEGATIVE); URINE NITRITE POSITIVE (NEGATIVE); URINE PROTEIN NEGATIVE (NEGATIVE); URINE UROBILINOGEN 0.2 E.U./dL (0.20 - 1.00)
[2017-06-08 23:49] LABS: URINE BACTERIA 1+; URINE RBC 0 - 2 (NONE SEEN)
[2017-06-09] MEDS ORDERED: ASPIRIN 81 MG CHEWABLE TABLET PO ONE (00:43)
--- NOTE | 2017-06-09 00:44 | Emergency Department Record ---
History of Present Illness - General Chief Complaint: Chest Pain Stated Complaint: CHEST PAIN Time Seen by Provider: 06/08/17 22:43 Source: Patient, EMS Mode of Arrival: EMS Limitations: No limitations - History of Present Illness Initial Comments: pt bought in by ems for sob and cp. she has a hx of chf, dvts, afib, cad, asthma, cardiac stents and bypass. 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 Complaint: Chest pain, Other Onset/Timin -: Hour(s) Onset: During rest Pain Location: Substernal Severity scale (1-10): 9 Quality: Sharp Consistency: Constant Improves With: Nothing Worsens With: Movement Anginal Symptoms: Dyspnea Other Symptoms: Other - Related Data Home Medications Medication Instructions Recorded Confirmed Last Taken Albuterol Sulfate 0.083% [Neb] 3 ml NEB .EVERY 4-6 HOURS PRN 06/08/17 06/08/17 Unknown Bumetanide 2 mg PO DAILY 06/08/17 06/08/17 Unknown Docusate Sodium [Colace] 100 mg PO BID 06/08/17 06/08/17 Unknown Allergies Allergy/AdvReac Type Severity Reaction Status Date / Time allopurinol [ALLOPURINOL] Allergy Unknown SWELLING Verified 09/15/16 16:54 (GENERAL) metoclopramide HCl Allergy Unknown SWELLING Verified 09/15/16 16:54 [From REGLAN] (GENERAL) ranitidine HCl [From ZANTAC] Allergy Unknown SWELLING Verified 09/15/16 16:54 (GENERAL) Sulfa (Sulfonamide Allergy Unknown SWELLING Verified 09/15/16 16:54 Antibiotics) (GENERAL) [SULFA (SULFONAMIDE ANTIBIOTICS)] abciximab [From Reopro] Allergy RASH Verified 09/15/16 16:54 eptifibatide Allergy RASH Verified 09/15/16 16:54 [From Integrilin] NSAIDS (Non-Steroidal Allergy RASH Verified 09/15/16 16:54 Anti-Inflamma verapamil HCl [From CALAN] AdvReac Unknown NAUSEA Verified 09/15/16 16:54 Travel Screening - Travel/Exposure Within Last 30 Days Have you traveled within the last 30 days?: No - Travel/Exposure Within Last Year Have you traveled outside the [place] in the last year?: No - Additonal Travel Details Have you been exposed to anyone with a communicable illness?: No - Travel Symptoms Symptom Screening: None Review of Systems Reviewed: No additional complaints except as noted below Constitutional: Reports: As per HPI. Denies: Chills, Fever, Malaise, Night sweats, Weakness, Weight change Eyes: Reports: As per HPI. Denies: Eye discharge, Eye pain, Photophobia, Vision change ENT: Reports: As per HPI. Denies: Congestion, Dental pain, Ear pain, Epistaxis , Hearing loss, Throat pain Respiratory: Reports: As per HPI. Denies: Cough, Dyspnea, Hemoptysis, Stridor, Wheezes Cardiovascular: Reports: As per HPI. Denies: Arrhythmia, Chest pain, Dyspnea on exertion, Edema, Murmurs, Orthopnea, Palpitations, Paroxysmal nocturnal dyspnea, Rheumatic Fever, Syncope Endocrine: Reports: As per HPI. Denies: Fatigue, Heat or cold intolerance, Polydipsia, Polyuria Gastrointestinal: Reports: As per HPI. Denies: Abdominal pain, Constipation, Diarrhea, Hematemesis, Hematochezia, Melena, Nausea, Vomiting Genitourinary: Reports: As per HPI. Denies: Abnormal menses, Discharge, Dyspareunia, Dysuria, Frequency, Hematuria, Incontinence, Retention, Urgency Musculoskeletal: Reports: As per HPI. Denies: Arthralgia, Back pain, Gout, Joint swelling, Myalgia, Neck pain Skin: Reports: As per HPI. Denies: Bruising, Change in color, Change in hair/ nails, Lesions, Pruritus, Rash Neurological: Reports: As per HPI. Denies: Abnormal gait, Confusion, Headache, Numbness, Paresthesias, Seizure, Tingling, Tremors, Vertigo, Weakness Psychiatric: Reports: As per HPI. Denies: Anxiety, Auditory hallucinations, Depression, Homicidal thoughts, Suicidal thoughts, Visual hallucinations Hematological/Lymphatic: Reports: As per HPI. Denies: Anemia, Blood Clots, Easy bleeding, Easy bruising, Swollen glands Past Medical History - SOCIAL HISTORY Smoking Status: Former smoker Alcohol Use: None Drug Use: None - RESPIRATORY Hx Respiratory Disorders: Yes Hx Asthma: Yes Hx Sleep Apnea: Yes (non-compliant with CPAP) Hx of CPAP: Yes Comment:: CPAP - CARDIOVASCULAR Hx Cardio Disorders: Yes Hx Abnormal EKG: Yes Hx Cardiac Cath: Yes (14 stents) Hx CHF: Yes Hx Edema: Yes Hx Heart Attack: Yes Hx Hypertension: Yes Hx Irregular Heartbeat: Yes Hx Vascular Disease: Yes Comment:: high cholesterol - NEURO Hx Neuro Disorders: Yes Hx TIA: Yes - GI Hx GI Disorders: Yes Hx Reflux: Yes Hx Obstructive Bowel: Yes Comment:: HX bowel CA - Hx Genitourinary Disorders: Yes Hx Bladder Problem: Yes - ENDOCRINE Hx Endocrine Disorders: Yes Hx Diabetes: Yes Hx Thyroid Disease: Yes - MUSCULOSKELETAL Hx Musculoskeletal Disorders: Yes Hx Arthritis: Yes Hx Back Injury: Yes Hx Fibromyalgia: Yes Hx Musculoskeletal Disease: Yes Hx Osteoporosis: Yes (osteopenia) Comment:: diabetic neuropathy - PSYCH Hx Psych Problems: Yes Hx Anxiety: Yes Hx Depression: Yes - HEMATOLOGY/ONCOLOGY Hx Hematology/Oncology Disorders: Yes Hx Cancer: Yes (ovarian, bowel, mouth) Hx Chemotherapy: No Hx Radiation Therapy: Yes Hx Blood Transfusions: Yes Family Medical History Any Significant Family History?: Yes Hx Cancer: Father, Mother, Brother/Sister Hx Diabetes: Mother, Brother/Sister Physical Exam - General General Appearance: Alert, Oriented x3, Cooperative, Mild distress - Head Head exam: Normal inspection - Eye Eye exam: Normal appearance, PERRL, EOMI Pupils: Normal accommodation - ENT ENT exam: Normal exam, Mucous membranes moist, Normal external ear exam, Normal orophraynx Ear exam: Normal external inspection. negative: External canal tenderness Nasal Exam: Normal inspection. negative: Discharge, Sinus tenderness Mouth exam: Normal external inspection, Tongue normal Teeth exam: Normal inspection. negative: Dental caries Throat exam: Normal inspection. negative: Tonsillar erythema, Tonsillar exudate - Neck Neck exam: Normal inspection, Full ROM. negative: Tenderness - Respiratory Respiratory exam: Normal lung sounds bilaterally. negative: Respiratory distress - Cardiovascular Cardiovascular Exam: Normal heart sounds, Irregular rhythm, Tachycardia - GI/Abdominal GI/Abdominal exam: Soft, Normal bowel sounds. negative: Tenderness - Rectal Rectal exam: Deferred - exam: Deferred - Extremities Extremities exam: Normal inspection, Full ROM, Normal capillary refill. negative: Tenderness - Back Back exam: Reports: Normal inspection, Full ROM. Denies: Muscle spasm, Rash noted, Tenderness - Neurological Neurological exam: Alert, CN II-XII intact, Normal gait, Oriented X3 - Psychiatric Psychiatric exam: Normal affect, Normal mood - Skin Skin exam: Dry, Intact, Normal color, Warm Course Vital Signs 06/08/17 06/08/17 06/08/17 22:44 22:47 23:22 Temperature 98.3 F 98.5 F Pulse Rate 110 H Pulse Rate [ 108 H 110 H Customer Assistant ] Respiratory 20 24 28 H Rate Blood Pressure 129/70 Blood Pressure 128/88 [Left Arm] Pulse Ox 95 95 94 L 06/09/17 00:23 Temperature Pulse Rate Pulse Rate [ 100 H Customer Assistant ] Respiratory 20 Rate Blood Pressure Blood Pressure 117/57 [Left Arm] Pulse Ox 97 Medical Decision Making - Lab Data Result diagrams: 06/08/17 22:26 06/08/17 22:47 Lab Results 06/08/17 06/08/17 06/08/17 Range/Units 22:26 22:26 22:26 WBC 4.8 (4.2-12.2) K/uL RBC 4.15 (3.80-5.40) M/uL Hgb 10.6 L (11.6-16.0) gm/dl Hct 34.9 L (35.0-47.0) % MCV 84.1 (81-97) fl MCH 25.5 L (27-33) pg MCHC 30.4 L (32-36) g/dl RDW 15.8 H (11.5-14.5) % Plt Count 73 L (130-400) K/uL MPV 10.4 (7.4-10.4) fl Gran % 69.5 (47-80) % Lymphocytes % 19.9 (16-45) % Monocytes % 10.6 H (0-9) % Eosinophils % 0.0 (0-6) % Basophils % 0.0 (0-6) % D-Dimer 0.70 H (0-0.59) mg/L FEU Sodium 139 (136-145) mmol/L Potassium 4.1 (3.4-4.5) mmol/L Chloride 97 L (98-107) mmol/L Carbon Dioxide 27.0 (22-29) mmol/L Anion Gap 15.0 (7-16) BUN 38 H (8-23) mg/dL Creatinine 1.2 H (0.5-0.9) mg/dL Estimated GFR 46 mL/min POC Glucose (70-110) mg/dL Random Glucose 333 H (74-109) mg/dL Calcium 8.5 L (8.8-10.2) mg/dL Total Bilirubin 0.20 (0.2-1.0) mg/dL AST 11 (10.0-35.0) U/L ALT 13 (<33) U/L Alkaline Phosphatase 94 (35-104) U/L Troponin T < 0.010 (0-0.010) ng/mL NT-Pro-B Natriuret Pep 1610.00 H (<450) pg/mL Total Protein 6.8 (6.6-8.7) g/dL Albumin 4.2 (4.0-5.0) g/dL Globulin 2.6 (1.4-4.8) gm/dL Albumin/Globulin Ratio 1.6 (1.1-1.8) Urine Color Urine Appearance Urine pH (5.0-8.0) Ur Specific [place] (1.002-1.030) Urine Protein (NEGATIVE) Urine Glucose (UA) (NEGATIVE) Urine Ketones (NEGATIVE) Urine Blood (NEGATIVE) Urine Nitrite (NEGATIVE) Urine Bilirubin (NEGATIVE) Urine Urobilinogen (0.20 - 1.00) E.U./dL Ur Leukocyte Esterase (NEGATIVE) Urine RBC (NONE SEEN) Urine WBC (0-2/hpf) Ur Epithelial Cells (FEW) Urine Bacteria 06/08/17 06/08/17 06/09/17 Range/Units 22:47 23:43 00:17 WBC (4.2-12.2) K/uL RBC (3.80-5.40) M/uL Hgb (11.6-16.0) gm/dl Hct (35.0-47.0) % MCV (81-97) fl MCH (27-33) pg MCHC (32-36) g/dl RDW (11.5-14.5) % Plt Count (130-400) K/uL MPV (7.4-10.4) fl Gran % (47-80) % Lymphocytes % (16-45) % Monocytes % (0-9) % Eosinophils % (0-6) % Basophils % (0-6) % D-Dimer (0-0.59) mg/L FEU Sodium Cancelled (136-145) mmol/L Potassium Cancelled (3.4-4.5) mmol/L Chloride Cancelled (98-107) mmol/L Carbon Dioxide Cancelled (22-29) mmol/L Anion Gap Cancelled (7-16) BUN Cancelled (8-23) mg/dL Creatinine Cancelled (0.5-0.9) mg/dL Estimated GFR Cancelled mL/min POC Glucose 350 H (70-110) mg/dL Random Glucose Cancelled (74-109) mg/dL Calcium Cancelled (8.8-10.2) mg/dL Total Bilirubin Cancelled (0.2-1.0) mg/dL AST Cancelled (10.0-35.0) U/L ALT Cancelled (<33) U/L Alkaline Phosphatase Cancelled (35-104) U/L Troponin T (0-0.010) ng/mL NT-Pro-B Natriuret Pep Cancelled (<450) pg/mL Total Protein Cancelled (6.6-8.7) g/dL Albumin Cancelled (4.0-5.0) g/dL Globulin Cancelled (1.4-4.8) gm/dL Albumin/Globulin Ratio Cancelled (1.1-1.8) Urine Color Yellow Urine Appearance Clear Urine pH 6.0 (5.0-8.0) Ur Specific [place] 1.015 (1.002-1.030) Urine Protein Negative (NEGATIVE) Urine Glucose (UA) 500 mg/dl H (NEGATIVE) Urine Ketones Negative (NEGATIVE) Urine Blood Small H (NEGATIVE) Urine Nitrite Positive H (NEGATIVE) Urine Bilirubin Negative (NEGATIVE) Urine Urobilinogen 0.2 (0.20 - 1.00) E.U./dL Ur Leukocyte Esterase Small H (NEGATIVE) Urine RBC 0 - 2 (NONE SEEN) Urine WBC 6 - 10 (0-2/hpf) Ur Epithelial Cells 3 - 6 (FEW) Urine Bacteria 1+ Disposition Disposition: Transfer Clinical Impression: Chronic atrial fibrillation CHF exacerbation Qualifiers: Heart failure type: unspecified Qualified Code(s): I50.9 - Heart failure, unspecified Diabetes mellitus Qualifiers: Diabetes mellitus type: type 2 Diabetes mellitus moth exterminator insulin use: with correction use Diabetes mellitus complication status: with hyperglycemia Qualified Code(s): E11.65 - Type 2 diabetes mellitus with hyperglycemia; Z79.4 - terminal superintendent (current) use of insulin; Z79.4 - FDC (current) use of insulin ; Z79.4 - terminal superintendent (current) use of insulin; Z79.4 - terminal superintendent (current) use of insulin Chest pain Qualifiers: Chest pain type: unspecified Qualified Code(s): R07.9 - Chest pain, unspecified Transfer To: [facility] Reason For Transfer: needs vq and international logistics analyst Accepting Physician: dr Pritchard Time Discussed w/Accepting Physician: 00:55 Quality - Quality Measures Quality Measures: N/A - Blood Pressure Screening Does Patient Have Any of the Following: Active Dx of HTN Blood Pressure Classification: Pre-Hypertensive BP Reading Systolic Measurement: 129 Diastolic Measurement: 70 Screening for High Blood Pressure: Patient Exclusion, Hx of HTN [G9744]
--- NOTE | 2017-06-10 09:10 | RADIOLOGY REPORT ---
EXAM: CHEST, TWO VIEWS HISTORY: SHORTNESS OF BREATH. TECHNIQUE: PA and lateral views of the chest were obtained. Comparison: Two view chest dated 01/27/17. FINDINGS: Postop sternotomy as before. Venous access port remains in place on the right with the catheter extending down into the region of the right atrium as before. No pneumothorax evident. Calcification and mild torsion of the aorta. No acute infiltrate identified. Mild spurring in the spine. IMPRESSION: 1. POSTOP STERNOTOMY. 2. VENOUS ACCESS PORT BEFORE. 3. NO DEFINITE ACUTE INFILTRATE SEEN. [facility]BER: [id number] [facility]
== END 2017-06-09 01:08 | disposition short-term general hospital (02) ==
LOC: ER 22:37
DX: I48.2 Chronic atrial fibrillation (principal); I50.9 Heart failure, unspecified; E11.65 Type 2 diabetes mellitus with hyperglycemia; R06.00 Dyspnea, unspecified; R07.2 Precordial pain; I25.2 Old myocardial infarction; I10 Essential (primary) hypertension; Z79.4 Long term (current) use of insulin; Z87.891 Personal history of nicotine dependence
CPT/HCPCS: 36416; 71046; 80053; 81001; 82948; 83880; 84484; 85025; 85379; 93005; 93010; 96372; 96374; 99285; J1940

== ENCOUNTER 2017-08-20 21:44 | Emergency (ER) | payer MEDICARE, MEDICAID ==
--- NOTE | 2017-08-20 21:58 | Emergency Department Record ---
History of Present Illness - General Stated Complaint: FALL Time Seen by Provider: 08/20/17 21:52 Source: Patient - History of Present Illness Initial Comments: The patient lives alone at home. She reports that she has had several episodes of diarrhea and thus needed a shower. She didn't have any help this time for her shower, and fell/slipped after getting out of her shower. Her toilet seat piece fell apart and she landed on her right side. She now complains of head contusion over her forehead, right lateral rib pain, and right abdominal pain. She takes Plavix. She was brought here by EMS. Complaint: Fall - Related Data Home Medications Medication Instructions Recorded Confirmed Last Taken Albuterol Sulfate [Ventolin Hfa] 1 inh INH ASDIR 08/20/17 08/20/17 Unknown Allergies Allergy/AdvReac Type Severity Reaction Status Date / Time allopurinol [ALLOPURINOL] Allergy Unknown SWELLING Unverified 07/21/17 10:40 (GENERAL) metoclopramide HCl Allergy Unknown SWELLING Unverified 07/21/17 10:40 [From REGLAN] (GENERAL) ranitidine HCl [From ZANTAC] Allergy Unknown SWELLING Unverified 07/21/17 10:40 (GENERAL) Sulfa (Sulfonamide Allergy Unknown SWELLING Unverified 07/21/17 10:40 Antibiotics) (GENERAL) [SULFA (SULFONAMIDE ANTIBIOTICS)] abciximab [From Reopro] Allergy RASH Unverified 07/21/17 10:40 eptifibatide Allergy RASH Unverified 07/21/17 10:40 [From Integrilin] NSAIDS (Non-Steroidal Allergy RASH Unverified 07/21/17 10:40 Anti-Inflamma verapamil HCl [From CALAN] AdvReac Unknown NAUSEA Unverified 07/21/17 10:40 Review of Systems Reviewed: No additional complaints except as noted below Constitutional: Reports: As per HPI. Denies: Chills, Fever, Malaise, Night sweats, Weakness, Weight change Eyes: Reports: As per HPI. Denies: Eye discharge, Eye pain, Photophobia, Vision change ENT: Reports: As per HPI. Denies: Congestion, Dental pain, Ear pain, Epistaxis , Hearing loss, Throat pain Respiratory: Reports: As per HPI. Denies: Cough, Dyspnea, Hemoptysis, Stridor, Wheezes Cardiovascular: Reports: As per HPI. Denies: Arrhythmia, Chest pain, Dyspnea on exertion, Edema, Murmurs, Orthopnea, Palpitations, Paroxysmal nocturnal dyspnea, Rheumatic Fever, Syncope Endocrine: Reports: As per HPI. Denies: Fatigue, Heat or cold intolerance, Polydipsia, Polyuria Gastrointestinal: Reports: As per HPI. Denies: Abdominal pain, Constipation, Diarrhea, Hematemesis, Hematochezia, Melena, Nausea, Vomiting Genitourinary: Reports: As per HPI. Denies: Abnormal menses, Discharge, Dyspareunia, Dysuria, Frequency, Hematuria, Incontinence, Retention, Urgency Musculoskeletal: Reports: As per HPI. Denies: Arthralgia, Back pain, Gout, Joint swelling, Myalgia, Neck pain Skin: Reports: As per HPI. Denies: Bruising, Change in color, Change in hair/ nails, Lesions, Pruritus, Rash Neurological: Reports: As per HPI. Denies: Abnormal gait, Confusion, Headache, Numbness, Paresthesias, Seizure, Tingling, Tremors, Vertigo, Weakness Psychiatric: Reports: As per HPI. Denies: Anxiety, Auditory hallucinations, Depression, Homicidal thoughts, Suicidal thoughts, Visual hallucinations Hematological/Lymphatic: Reports: As per HPI. Denies: Anemia, Blood Clots, Easy bleeding, Easy bruising, Swollen glands Past Medical History - SOCIAL HISTORY Smoking Status: Former smoker Drug Use: None - RESPIRATORY Hx Respiratory Disorders: Yes Hx Asthma: Yes Hx Sleep Apnea: Yes (non-compliant with CPAP) Hx of CPAP: Yes Comment:: CPAP - CARDIOVASCULAR Hx Cardio Disorders: Yes Hx Abnormal EKG: Yes Hx Cardiac Cath: Yes (14 stents) Hx CHF: Yes Hx Edema: Yes Hx Heart Attack: Yes Hx Hypertension: Yes Hx Irregular Heartbeat: Yes Hx Vascular Disease: Yes Comment:: high cholesterol - NEURO Hx Neuro Disorders: Yes Hx TIA: Yes - GI Hx GI Disorders: Yes Hx Reflux: Yes Hx Obstructive Bowel: Yes Comment:: HX bowel CA - Hx Genitourinary Disorders: Yes Hx Bladder Problem: Yes - ENDOCRINE Hx Endocrine Disorders: Yes Hx Diabetes: Yes Hx Thyroid Disease: Yes - MUSCULOSKELETAL Hx Musculoskeletal Disorders: Yes Hx Arthritis: Yes Hx Back Injury: Yes Hx Fibromyalgia: Yes Hx Musculoskeletal Disease: Yes Hx Osteoporosis: Yes (osteopenia) Comment:: diabetic neuropathy - PSYCH Hx Psych Problems: Yes Hx Anxiety: Yes Hx Depression: Yes - HEMATOLOGY/ONCOLOGY Hx Hematology/Oncology Disorders: Yes Hx Cancer: Yes (ovarian, bowel, mouth) Hx Chemotherapy: No Hx Radiation Therapy: Yes Hx Blood Transfusions: Yes Family Medical History Hx Cancer: Father, Mother, Brother/Sister Hx Diabetes: Mother, Brother/Sister Physical Exam - General General Appearance: Alert, Oriented x3, Cooperative, Mild distress (c collar in place) - Head Head exam: Normal inspection, Other (nonvisible contusion type tenderness to forehead) Head exam detail: Contusion - Eye Eye exam: Normal appearance, PERRL Pupils: Normal accommodation - ENT ENT exam: Normal exam, Mucous membranes moist, Normal external ear exam, Normal orophraynx, TM's normal bilaterally Ear exam: Normal external inspection. negative: External canal tenderness Nasal Exam: Normal inspection. negative: Discharge, Sinus tenderness Mouth exam: Normal external inspection, Tongue normal Teeth exam: Normal inspection. negative: Dental caries Throat exam: Normal inspection. negative: Tonsillar erythema, Tonsillar exudate - Neck Neck exam: Normal inspection, Full ROM, Other (C collar in place on arrival). negative: Tenderness - Respiratory Respiratory exam: Normal lung sounds bilaterally. negative: Respiratory distress - Cardiovascular Cardiovascular Exam: Regular rate, Normal rhythm, Normal heart sounds - GI/Abdominal GI/Abdominal exam: Soft, Tenderness (right sided abdominal pain) - Rectal Rectal exam: Deferred - exam: Deferred - Extremities Extremities exam: Normal inspection, Full ROM, Normal capillary refill. negative: Calf tenderness, Pedal edema, Tenderness - Back Back exam: Reports: Normal inspection, Full ROM. Denies: Muscle spasm, Rash noted, Tenderness - Neurological Neurological exam: Alert, Normal gait, Oriented X3, Reflexes normal - Psychiatric Psychiatric exam: Normal affect, Normal mood - Skin Skin exam: Dry, Intact, Normal color, Warm Course Vital Signs 08/20/17 21:46 Temperature 99.0 F Pulse Rate [ 81 Pulse Ox Probe] Respiratory 19 Rate Blood Pressure 93/69 [Left Arm] Pulse Ox 94 L - Reevaluation(s) Reevaluation #1: Discussed with Dr. Carlin with [facility] who accepts patient for direct admit to his service at [facility]. Patient agrees with plan. Transfer due to need for wafer cleaner due to indeterminate troponin, and renal specialist due to worsened renal insufficiency and elevated potassium. Patient request transfer to [facility] if transfer is indicated. 08/21/17 01:08 Medical Decision Making - Management Options MDM Management: Additional Work-up Planned (e.g. ADM/Transfer/OP Study) ( Tranfer to [facility] for direct admit to Dr. Carlin) - Data Complexity MDM Data: Labs Ordered and/or Reviewed, X-Ray Ordered and/or Reviewed (Body scan from Head, CSpine, Chest, Abd, Pelvis all negative for acute trauma, fracture, hemorrhage, with numercouse chronic findings (see attached reports).) , EKG Ordered and/or Reviewed (EKG: Atrial fibrillation, incompletel LBBB, unchanged from prior of 06-08-17 except for rate) - Lab Data Result diagrams: 08/20/17 22:00 08/20/17 22:00 Disposition Disposition: Transfer Clinical Impression: Hypoxia, Hyperkalemia, Acute renal insufficiency, Troponin level elevated, Chronic atrial fibrillation UTI (urinary tract infection) Qualifiers: Urinary tract infection type: acute cystitis Hematuria presence: without hematuria Qualified Code(s): N30.00 - Acute cystitis without hematuria Disposition: [facility] Transfer Decision to Admit: Admit from ER Transfer To: [facility] Reason For Transfer: wafer cleaner service, elevated troponin; renal specialist; Accepting Physician: Dr. Carlin Time Discussed w/Accepting Physician: 01:05 Condition: (3) Guarded Quality - Quality Measures Quality Measures: N/A - Blood Pressure Screening Does Patient Have Any of the Following: No Blood Pressure Classification: Normal BP Reading Systolic Measurement: 89 Diastolic Measurement: 50 Screening for High Blood Pressure: < Normal BP, F/U Not Required > [G8783]
[2017-08-20 22:13] LABS: GRAN % 71.3 % (47-80); HEMATOCRIT 30.9 % (35.0-47.0); HEMOGLOBIN 9.4 gm/dl (11.6-16.0); LYMPH % 12.5 % (16-45); MEAN CELL VOLUME 88.3 fl (81-97); MEAN CORPUSCULAR HGB CONC 30.4 g/dl (32-36); MEAN PLATELET VOLUME 10.6 fl (7.4-10.4); MONO % 7.2 % (0-9); PLATELET COUNT 57 K/uL (130-400); RED CELL DISTRIBUTION WIDTH 16.9 % (11.5-14.5); WHITE BLOOD COUNT W/O DIFF 5.1 K/uL (4.2-12.2)
[2017-08-20 22:14] LABS: MEAN CORPUSCULAR HEMOGLOBIN 26.8 pg (27-33)
[2017-08-20 22:19] LABS: PROTHROMBIN TIME (PATIENT) 10.6 SECONDS (9.5-12.1)
[2017-08-20 22:20] LABS: BILIRUBIN,TOTAL 0.2 mg/dL (0.2-1.0); CREATININE 2.5 mg/dL (0.5-0.9)
[2017-08-20 22:21] LABS: TOTAL PROTEIN 6.3 g/dL (6.6-8.7)
[2017-08-20 22:26] LABS: ALB/GLOB RATIO 1.7 (1.1-1.8)
[2017-08-20 22:46] LABS: URINE APPEARANCE CLEAR; URINE BILIRUBIN NEGATIVE (NEGATIVE); URINE BLOOD NEGATIVE (NEGATIVE); URINE COLOR YELLOW; URINE GLUCOSE (UA) NEGATIVE (NEGATIVE); URINE KETONE NEGATIVE (NEGATIVE); URINE LEUKOCYTE ESTERASE SMALL (NEGATIVE); URINE NITRITE POSITIVE (NEGATIVE); URINE PROTEIN NEGATIVE (NEGATIVE); URINE UROBILINOGEN 0.2 E.U./dL (0.20 - 1.00)
[2017-08-20 22:55] LABS: URINE BACTERIA 4+; URINE EPITHELIAL CELLS NONE SEEN (FEW); URINE RBC NONE SEEN (NONE SEEN)
[2017-08-20] MEDS ORDERED: ALBUTEROL SULFATE (0.083%) 2.5 MG/3 ML NEB INH ONE (23:51)
[2017-08-20] MEDS ORDERED: SPS 15 GM/60 ML PO ONE (23:56)
[2017-08-21] MEDS ORDERED: AZITHROMYCIN 500 MG TABLET PO ONE (00:34)
[2017-08-21] MEDS ORDERED: CEFTRIAXONE SODIUM 1 GM in 0.9 % SODIUM CHLORIDE 100ML 100 ML IVPB ONE (00:34)
[2017-08-21] MEDS ORDERED: 0.9 % SODIUM CHLORIDE 500ML 500 ML IV SCH (01:15)
--- NOTE | 2017-08-23 11:12 | CT SCAN REPORT ---
EXAM: CT SCAN HEAD WO CONTRAST HISTORY: FALL. TECHNIQUE: CT brain without contrast. COMPARISON: Prior CT brain 11/05/16. FINDINGS: The globes are intact. The paranasal sinuses and mastoid air cells are unremarkable. No displaced or depressed skull fracture. No intra- or extra- axial hemorrhage. CT limited for evaluation of acute infarct. No CT evidence for large or territorial acute infarct. Mild diffuse atrophy. No mass or midline shift. Hypodensities in the periventricular and subcortical white matter consistent with sequela of small vessel ischemic change. IMPRESSION: ATROPHY. SMALL VESSEL ISCHEMIC CHANGE. [facility]BER: [id number] [facility]
--- NOTE | 2017-08-23 11:15 | CT SCAN REPORT ---
EXAM: CT SCAN CERVICAL SPINE WO CONTRAST HISTORY: FALL. TECHNIQUE: Axial CT images of the cervical spine with coronal and sagittal reconstructions. COMPARISON: None. FINDINGS: Evaluation of the spinal canal contents is limited due to CT technique. However, vertebral body height and alignment are preserved. Minor degenerative changes at C4-5 and C5-6 with disc space narrowing and osteophytic spurring. Remaining disc spaces are preserved. Surrounding soft tissues are unremarkable. IMPRESSION: NEGATIVE FOR ACUTE C-SPINE ABNORMALITY. JOB NUMBER: [id number] [facility]
--- NOTE | 2017-08-23 11:21 | CT SCAN REPORT ---
EXAM: CT SCAN CHEST WO CONTRAST HISTORY: FALL. TECHNIQUE: CT chest without contrast. Lack of IV contrast limits evaluation of the mediastinum and hilum. COMPARISON: Prior CT chest, 08/20/16. FINDINGS: Postsurgical changes of the mediastinum. Cardiomegaly with coronary artery calcification. Evaluation of the upper abdomen better assessed on dedicated CT from today's date. Osseous structures of the thorax are otherwise grossly intact. There is no pneumothorax. The visualized airways are patent. Mild respiratory motion artifact. Vague nodule density seen in the posterior left lung base on image #44 of 118, measuring approximately 6.2 mm. This is in part obscured due to respiratory motion artifact. This was not definitively present on the prior exam. Lungs are otherwise clear. IMPRESSION: 1. RESPIRATORY MOTION ARTIFACT SOMEWHAT LIMITS THE EXAM. VAGUE 6 MM NODULAR DENSITY IN THE POSTERIOR LEFT LUNG BASE. RECOMMEND SHORT-TERM FOLLOW-UP WITH CONTRAST IN 2-3 MONTHS TO ENSURE STABILITY. 2. CARDIOMEGALY WITH POSTSURGICAL CHANGES OF THE MEDIASTINUM. [facility]: [id number] [facility]
--- NOTE | 2017-08-23 11:29 | CT SCAN REPORT ---
EXAM: CT SCAN ABDOMEN/PELVIS WO CONTRAST HISTORY: FALL. TECHNIQUE: CT abdomen and pelvis performed without oral or IV contrast. This limits evaluation of bowel and solid visceral organs. COMPARISON: Prior CT abdomen/pelvis from 08/20/16. FINDINGS: Evaluation of the lung bases better assessed on dedicated CT from today's date. Osseous structures are grossly intact. Suspected fatty infiltrative change to the liver. The spleen, adrenal glands, and pancreas are grossly unremarkable. There is an area of biliary ductal dilatation in the right hepatic lobe, unchanged from the prior exam. Presumed cholecystectomy. Punctate calcification in the region of the common hepatic duct measuring approximately 2 mm. The kidneys are grossly unremarkable. No gross evidence for bowel obstruction. Large amount of stool in the colon. Aparicio catheter in place. No free air or free fluid. IMPRESSION: 1. NEGATIVE FOR AN ACUTE INTRA-ABDOMINAL/PELVIS PROCESS. 2. NOT STATED PREVIOUSLY, THERE IS A TINY FAT-CONTAINING UMBILICAL HERNIA. 3. FATTY INFILTRATIVE CHANGE TO THE LIVER. STATUS POST CHOLECYSTECTOMY WITH STABLE BILIARY DUCTAL DILATATION IN THE RIGHT HEPATIC LOBE. 4. QUESTIONABLE PUNCTATE CALCIFICATION IN THE REGION OF THE COMMON HEPATIC DUCT. JOB NUMBER: [id number] [facility]
== END 2017-08-21 01:55 | disposition short-term general hospital (02) ==
LOC: ER 21:44
DX: S00.83XA Contusion of other part of head, initial encounter (principal); R79.89 Other specified abnormal findings of blood chemistry; N28.9 Disorder of kidney and ureter, unspecified; R07.81 Pleurodynia; R10.9 Unspecified abdominal pain; I48.2 Chronic atrial fibrillation; R09.02 Hypoxemia; E87.5 Hyperkalemia; R19.7 Diarrhea, unspecified; E11.9 Type 2 diabetes mellitus without complications; I10 Essential (primary) hypertension; W18.2XXA Fall in (into) shower or empty bathtub, initial encounter; I25.2 Old myocardial infarction; Y93.E1 Activity, personal bathing and showering; Y92.002 Bathroom of unspecified non-institutional (private) residence as the place of occurrence of the external cause; Z87.891 Personal history of nicotine dependence; Z98.1 Arthrodesis status; Z85.43 Personal history of malignant neoplasm of ovary; Z85.89 Personal history of malignant neoplasm of other organs and systems
CPT/HCPCS: 70450; 71250; 72125; 74176; 80053; 81001; 83605; 83690; 84484; 85025; 85610; 85730; 93005; 93010; 94640; 96374; 99285; J7040; J7613

== ENCOUNTER 2017-08-25 11:23 | Inpatient (IN) | payer MEDICARE, MEDICAID ==
[2017-08-25] MEDS ORDERED: ALBUTEROL HFA 8 GM INHALER INH PRN (15:44)
[2017-08-25] MEDS ORDERED: ONDANSETRON 4 MG ODT TABLET SL PRN (15:47)
[2017-08-25] MEDS ORDERED: NITROGLYCERIN 0.4MG SL TABLET #25 BTL SL PRN (15:47)
[2017-08-25] MEDS: METFORMIN 500 MG TABLET PO SCH (17:03)
[2017-08-25] MEDS: GABAPENTIN 300 MG CAPSULE PO SCH ×2 (17:03→21:45)
[2017-08-25] MEDS: FLUTICASONE PROPIONATE 50MCG NASAL 16 GM BTL SCH (21:42)
[2017-08-25] MEDS: BACLOFEN 10 MG TABLET PO SCH (21:44)
[2017-08-25] MEDS: DULOXETINE HCL 30 MG CAPSULE.DR PO SCH (21:45)
[2017-08-25] MEDS: FERROUS SULFATE 325 MG TAB PO SCH (21:45)
[2017-08-25] MEDS: AMITRIPTYLINE 10 MG TAB PO SCH (21:46)
[2017-08-25] MEDS: ATORVASTATIN 20 MG TABLET PO SCH (21:46)
[2017-08-25] MEDS: LEVEMIR FLEXTOUCH 100 UNIT/ML INSULIN PEN SQ SCH (21:47)
[2017-08-25] MEDS: REMOVE PATCH 1 EACH MISC TD SCH (22:07)
[2017-08-26] MEDS: PANTOPRAZOLE SODIUM 40 MG TABLET PO SCH (07:00)
[2017-08-26] MEDS: LEVOTHYROXINE SODIUM 50 MCG TABLET PO SCH (07:00)
[2017-08-26] MEDS: METFORMIN 500 MG TABLET PO SCH ×2 (08:05→17:30)
--- NOTE | 2017-08-26 08:21 | History & Physical ---
History of Present Illness - Date Date of Service for History & Physical: 08/26/17 - History of Present Illness Admitting Diagnosis: Deconditioning r/t pneumonia History of Present Illness: Mrs. Diaz is a pleasant 81 y/o female admitted to swing bed after being discharged from [facility] yesterday. According to the patient, about 1 week ago she fell in her bathroom when she was trying to get up from the toilet. She was able to call EMS using her life alert button and she was taken to the ED. On workup the patient was treated for a pneumonia and a urinary tract infection. She also has multiple co-morbidities that were being managed inclusive of depression, diabetes mellitus II, hypothyroidism and coronary artery disease. The patient lives alone but has caregivers who come in three days per week to assist her with ADLs/IADLs. She is able to ambulate around her home with the use of a rolling walker. She is admitted to swing bed as a result of deconditioning and unsteady gait. General - Cognitive Patterns Thought Process: Intact Orientation: Oriented x3, Person, Place, Time, Responds to Name - Communication Preferred Language?: Georgian Comprehension Ability: No Impairment Select best description of speech pattern: Clear Speech Ability to express ideas and wants: Understood Understanding verbal content: Understands - Mood and Behavior Patterns Appearance: Well Groomed Mood: Normal Attitude: Cooperative Motor Activity: Calm Affect: Appropriate - Psychosocial Well-Being Usual Living Arrangement: Alone, Other Living Arrangement Comment: Skilled Nursing Community - Physical Functioning Activity Level: Up as tolerated, Up with assist x1 Turning: Self ad marley ROM Ability: Within Normal Limits Assistive Devices: 4 Wheel Walker Ambulation Ability: Needs Assist Bed Mobility: Independent Transfer Ability: Needs Assist Bathing Ability: Independent Personal Hygiene: Independent Dressing Ability: Independent Eating (Feeding) Ability: Independent Toileting Ability: Needs Assist Administer Own Medication: Independent - Continence Bowel Pattern: Normal for Patient Bladder Pattern: Normal - Dental Status No natural teeth or tooth fragment(s) (edentulous): Yes - Nutrition Screening Poor oral intake > 1 week: Yes Unplanned weight loss in specified time frame: No Nutrition Support via tube feedings or parenteral nutrition: No Pressure Ulcer: No Significantly underweight define as BMI <18.5 kg/m2: No Albumin <2.5mg/dL: No Persistent nausea/vomiting/diarrhea >3 days: No Difficulty chewing/swallowing/mouth sores: Yes Admitting Diagnosis: No Nutrition Risk Score: High Risk Review of Systems Constitutional: Reports: As per HPI. Denies: Chills, Fever, Malaise, Night sweats, Weakness, Weight change Eyes: Reports: As per HPI. Denies: Eye discharge, Eye pain, Photophobia, Vision change ENT: Reports: As per HPI. Denies: Congestion, Dental pain, Ear pain, Epistaxis , Hearing loss, Throat pain Respiratory: Reports: As per HPI. Denies: Cough, Dyspnea, Hemoptysis, Stridor, Wheezes Cardiovascular: Reports: As per HPI. Denies: Arrhythmia, Chest pain, Dyspnea on exertion, Edema, Murmurs, Orthopnea, Palpitations, Paroxysmal nocturnal dyspnea, Rheumatic Fever, Syncope Gastrointestinal: Reports: As per HPI. Denies: Abdominal pain, Constipation, Diarrhea, Hematemesis, Hematochezia, Melena, Nausea, Vomiting Genitourinary: Reports: As per HPI. Denies: Abnormal menses, Discharge, Dyspareunia, Dysuria, Frequency, Hematuria, Incontinence, Retention, Urgency Skin: Reports: Bruising Neurological: Reports: Abnormal gait Psychiatric: Reports: Anxiety, Depression Past Medical History - SOCIAL HISTORY Smoking Status: Former smoker - SURGICAL HISTORY Past Surgical History: triple cardiac bypass. hysterectomy. cholecystectomy. appendectomy. tonsillectomy. multiple cardiac stents - RESPIRATORY Hx Respiratory Disorders: Yes Hx Asthma: Yes Hx Sleep Apnea: Yes (non-compliant with CPAP) Hx of CPAP: Yes Comment:: CPAP - CARDIOVASCULAR Hx Cardio Disorders: Yes Hx Abnormal EKG: Yes Hx Cardiac Cath: Yes (14 stents) Hx CHF: Yes Hx Edema: Yes Hx Heart Attack: Yes Hx Hypertension: Yes Hx Irregular Heartbeat: Yes Hx Vascular Disease: Yes Comment:: high cholesterol - NEURO Hx Neuro Disorders: Yes Hx TIA: Yes - GI Hx GI Disorders: Yes Hx Reflux: Yes Hx Obstructive Bowel: Yes Comment:: HX bowel CA - Hx Genitourinary Disorders: Yes Hx Bladder Problem: Yes - ENDOCRINE Hx Endocrine Disorders: Yes Hx Diabetes: Yes Hx Thyroid Disease: Yes - MUSCULOSKELETAL Hx Musculoskeletal Disorders: Yes Hx Arthritis: Yes Hx Back Injury: Yes Hx Fibromyalgia: Yes Hx Musculoskeletal Disease: Yes Hx Osteoporosis: Yes (osteopenia) Comment:: diabetic neuropathy - PSYCH Hx Psych Problems: Yes Hx Anxiety: Yes Hx Depression: Yes - HEMATOLOGY/ONCOLOGY Hx Hematology/Oncology Disorders: Yes Hx Cancer: Yes (ovarian, bowel, mouth) Hx Chemotherapy: No Hx Radiation Therapy: Yes Hx Blood Transfusions: Yes Family Medical History Any Significant Family History?: Yes Hx Cancer: Father, Mother, Brother/Sister Hx Diabetes: Mother, Brother/Sister H&P Meds/Allergies - Allergies Allergies: Allergies Allergy/AdvReac Type Severity Reaction Status Date / Time allopurinol [ALLOPURINOL] Allergy Unknown SWELLING Verified 08/21/17 01:57 (GENERAL) metoclopramide HCl Allergy Unknown SWELLING Verified 08/21/17 01:57 [From REGLAN] (GENERAL) ranitidine HCl [From ZANTAC] Allergy Unknown SWELLING Verified 08/21/17 01:57 (GENERAL) Sulfa (Sulfonamide Allergy Unknown SWELLING Verified 08/21/17 01:57 Antibiotics) (GENERAL) [SULFA (SULFONAMIDE ANTIBIOTICS)] abciximab [From Reopro] Allergy RASH Verified 08/21/17 01:57 eptifibatide Allergy RASH Verified 08/21/17 01:57 [From Integrilin] NSAIDS (Non-Steroidal Allergy RASH Verified 08/21/17 01:57 Anti-Inflamma verapamil HCl [From CALAN] AdvReac Unknown NAUSEA Verified 08/21/17 01:57 - Active Medications Active Medications: Current Medications Albuterol Sulfate (Ventolin Hfa) 2 puff INH Q4H PRN PRN Reason: WHEEZING Amitriptyline HCl (Elavil) 20 mg PO QHS [facility] Last Admin: 08/25/17 21:46 Dose: 20 mg Aspirin (Ecotrin (Ec)) 81 mg PO DAILY [facility] Atorvastatin Calcium (Lipitor) 20 mg PO QHS [facility] Last Admin: 08/25/17 21:46 Dose: 20 mg Baclofen (Lioresal) 10 mg PO BID [facility] Last Admin: 08/25/17 21:44 Dose: 10 mg Clopidogrel Bisulfate (Plavix) 75 mg PO DAILY [facility] Duloxetine HCl (Cymbalta) 60 mg PO BID [facility] Last Admin: 08/25/17 21:45 Dose: 60 mg Ferrous Sulfate (Iron) 325 mg PO BID [facility] Last Admin: 08/25/17 21:45 Dose: 325 mg Fluticasone Propionate (Flonase) 1 spray NA BID [facility] Last Admin: 08/25/17 21:42 Dose: 1 spray Furosemide (Lasix) 20 mg PO DAILY [facility] Gabapentin (Neurontin) 300 mg PO TID [facility] Last Admin: 08/25/17 21:45 Dose: 300 mg Insulin Detemir (Levemir Flextouch) 10 unit SQ BID [facility] Last Admin: 08/25/17 21:47 Dose: 10 unit Isosorbide Mononitrate (Imdur) 30 mg PO DAILY [facility] Levothyroxine Sodium (Synthroid) 50 mcg PO DAILYTHY [facility] Last Admin: 08/26/17 07:00 Dose: 50 mcg Lidocaine (Lidoderm) 1 each TOP DAILY [facility] Lisinopril (Zestril) 10 mg PO DAILY [facility] Metformin HCl (Glucophage Ir) 500 mg PO BIDWM [facility] Last Admin: 08/26/17 08:05 Dose: 500 mg Metoprolol Succinate (Toprol Xl) 25 mg PO DAILY [facility] Miscellaneous (Remove Patch) 1 each TD QHS [facility] Last Admin: 08/25/17 22:07 Dose: 1 each Nitroglycerin (Nitrostat 0.4mg) 0.4 mg SL Q5MIN PRN PRN Reason: CHEST PAIN Ondansetron HCl (Zofran Odt) 4 mg SL Q8H PRN PRN Reason: NAUSEA Pantoprazole Sodium (Protonix) 40 mg PO DAILYAC [facility] Last Admin: 08/26/17 07:00 Dose: 40 mg Venlafaxine HCl (Effexor Xr) 225 mg PO DAILY [facility] Physical Exam - Vital Signs Vital Signs: Vital Signs - Last 24 Hrs Temp Pulse Resp BP Pulse Ox 08/26/17 08:12 97.8 F 91 H 18 161/97 100 08/25/17 21:16 97 08/25/17 21:14 16 08/25/17 15:45 97.6 F 86 18 141/75 96 - General General Appearance: Alert, Oriented x3, Cooperative, No acute distress - Head Head exam: Normal inspection - ENT ENT exam: Normal exam, Mucous membranes moist, Normal external ear exam, Normal orophraynx, TM's normal bilaterally Ear exam: Normal external inspection. negative: External canal tenderness Nasal Exam: Normal inspection. negative: Discharge, Sinus tenderness Mouth exam: Normal external inspection, Tongue normal Teeth exam: Normal inspection. negative: Dental caries Throat exam: Normal inspection. negative: Tonsillar erythema, Tonsillar exudate - Respiratory Respiratory exam: Normal lung sounds bilaterally. negative: Respiratory distress - Cardiovascular Cardiovascular Exam: Regular rate, Normal rhythm, Normal heart sounds Peripheral Pulses: 2+: Dorsalis Pedis (R), Dorsalis Pedis (L), 3+: Radial (R), Radial (L) - GI/Abdominal GI/Abdominal exam: Soft, Normal bowel sounds. negative: Tenderness - Extremities Extremities exam: Pedal edema - Neurological Neurological exam: Alert, Altered, CN II-XII intact - Psychiatric Psychiatric exam: Normal affect, Normal mood - Skin Skin exam: Erythema, Pallor, Other (left MCP bruising, right ant lower leg bruise) H&P Results - Labs Labs Last 24 Hours: Laboratory Results - last 24 hr 08/25/17 08/25/17 08/26/17 17:00 21:32 07:45 POC Glucose 140 H 148 H 148 H Discharge Potential - Discharge Needs Community Services Used Prior to Admission: None Patient Discharge Plan Description: Return Home Community Services Needed at Discharge: None Plan - Swing Bed Certification Initial Certification Due: 08/25/17 14 Day Re-Cert Due: 09/08/17 44 Day Re-Cert Due: 10/08/17 74 Day Re-Cert Due: 11/07/17 - Detailed Diagnosis and Plan (1) Physical deconditioning Current Visit: Yes Status: Acute Base Code: R53.81 - OTHER MALAISE Comment : 08/26/17: - Recent history of fall and admission to [facility]. Patient had some PT/OT while there. - Consult to PT/OT for evalutation and treatment. - Fall precuations: lower bed/alarm, anti-slip socks, ambulation with assist. (2) Diabetes mellitus type II, controlled Current Visit: Yes Status: Acute Base Code: E11.9 - TYPE 2 DIABETES MELLITUS WITHOUT COMPLICATIONS Comment: 08/26/17: - Resume Levemir 10 units QHS and Metformin 500mg BID, CARLOS, Statin - Accuchecks AcHs, ADA diet (3) Anxiety and depression Current Visit: No Status: Acute Base Code: F41.8 - OTHER SPECIFIED ANXIETY DISORDERS Comment: 08/26/17: - on Xanax, Cymbalta, Pamelor and Effexor. - Will resume dosing but would recommend tapering and d/c of some of these mdications based on BEERS criteria. This combination of medications are the likely cause of her gait/stance issues. (4) CAD (coronary artery disease) Current Visit: Yes Status: Acute Base Code: I25.10 - ATHSCL HEART DISEASE OF [place] CORONARY ARTERY W/O ANG PCTRS Comment: 08/26/17: - cont ASA, Plavix, statin, BB, CARLOS, Nitro PRN. (5) Hypothyroid Current Visit: No Status: Acute Base Code: E03.9 - HYPOTHYROIDISM, UNSPECIFIED Comment: 08/26/17: - resume Levothyroxine 50mcg. (6) Code status needs review Current Visit: No Status: Acute Base Code: [id number] - Comment: 08/26/17: Will discuss with patient and update in documentation.
[2017-08-26] MEDS: UMECLIDINIUM BROMIDE (INCRUSE) 62.5MCG IH SCH (09:37)
--- NOTE | 2017-08-26 10:18 | Rehab Evaluation ---
Patient Information - Patient Information Diagnosis: Deconditioning r/t pneumonia Ordered Treatment: PT Evaluate and Treat Status: Initial Evaluation Past Medical/Surgical Hx: PAST MEDICAL/SURGICAL HISTORY Past Surgical History triple cardiac bypass hysterectomy cholecystectomy appendectomy tonsillectomy multiple cardiac stents PMH - Respiratory Hx Respiratory Disorders Yes Hx Asthma Yes Hx Sleep Apnea Yes: non-compliant with CPAP Hx of CPAP Yes Comment: CPAP PMH - Cardiovascular Hx Cardiovascular Disorders Yes Hx Abnormal EKG Yes Hx Cardiac Catheterization Yes: 14 stents Hx Congestive Heart Failure Yes Hx Edema Yes Hx Heart Attack Yes Hx Hypertension Yes Hx Irregular Heartbeat Yes Hx Vascular Disease Yes Hx Transient Ischemic Attacks Yes (TIA) Comment: high cholesterol PMH - Neuro Hx Neurological Disorders Yes Hx Cerebrovascular Accident Yes Hx Dizziness Yes Hx Headaches Yes Hx Neuropathy Yes Hx Syncope Yes Hx Transient Ischemic Attacks Yes (TIA) PMH - GI Hx Gastrointestinal Disorders Yes Hx Gastroesophageal Reflux Yes Hx Obstructive Bowel Yes Comment: HX bowel CA PMH - Hx Genitourinary Disorders Yes Hx Bladder Problem Yes Comment: Curry when voiding PMH - Endocrine Hx Endocrine Disorders Yes Hx Diabetes Yes Hx Thyroid Disease Yes Hx of IDDM Yes PMH - Musculoskeletal Hx Musculoskeletal Disorders Yes Hx Arthritis Yes Hx Back Injury Yes Hx Fibromyalgia Yes Hx Musculoskeletal Disease Yes Hx Osteoporosis Yes: osteopenia Comment: diabetic neuropathy PMH - Psych Hx Psychiatric Problems Yes Hx Anxiety Yes Hx Depression Yes PMH - Hematology/Oncology Hx Hematology/Oncology Yes Disorders Hx Cancer Yes: ovarian, bowel, mouth Hx Chemotherapy No Hx Radiation Therapy Yes Premorbid Status: Detail (The patient was ambulatory with 4 wheeled walker and used a electric wheelchair when traveling distances ie: around apartment complex. The patient's sister in law and another home health aide assisted patient with meals, used car renovator and ADL's(showering and dressing).) Social History: Detail (The patient lives alone in an apartment on the first floor with no stairs at the enterance. The bathroom is equipped with a walk in shower with a shower seat and grab bars and a toilet with a riser seat. The patient has a 4 wheeled walker, hospital bed , lift chair and an electric wheelchair.) Precautions: [place], Fall - Time With Patient Total Time Spent With Patient (Min): 30 Treatment Procedures: Detail (Initial Evaluation) Subjective Information - Subjective Information Per Patient (The patient had no complaints of pain. The patient admitted she has fallen with the most recent incident one week ago when she fell in the bathroom after taking a shower.) Objective Data - Mental Status Patient Orientation: Oriented x3 - Visual Perception Appears within normal limits for therapeutic activities - ROM Not within normal limits (The patient's LE AROM is WNL except for bilateral ankle dorsiflexion which is limited to aproximately -5 degrees ( lacking 5 degrees from neutral). Refer to OT note for UE AROM.) - Strength/Tone Not within normal limits (The patient's LE strength (seated) is as follows: bilateral hip flexors 4/5, hip adductors L 4-/5, R 4/5, hip abductors 4+/5, hip extensors (NT), knee flexors L 4-/5, R 4/5, knee extensors 4+/5, bilateral ankle musculature 4+ /5.) - Bed Mobility Independent (The patient was independent with supine to and from sit transfer with increased effort noted and shortness of breath.) - Transfers Independent (Independent sit to and from stand transfer.) - Balance Balance Sitting: Good Balance Standing: Fair (The patient's balance using the Tinetti Assessment Tool was which is in the moderate risk for falling category.) - Sensation Deficit (The patient has diminished sensation to light touch bilateral LE's knees to ankles anterior and posterior surface.) - Gait Detail (The patient ambulated with 2 wheeled walker a distance of 200 feet with supervision for safety only and shortness of breath.) - Special Tests Yes (Inspection: The patient has bilateral LE edema.) Therapy Assessment - Therapy Assessment Detail (The patient exhibits LE strength deficits, shortness of breath with ambulation, decreased ability to complete prolonged physical activity and balance deficits. Feel the patient would benefit from short term Rehab to return to previous physical level.) Problem List - Problem List Physical Therapy Problem List: Detail (1) Decreased LE strength 2) Decreased ability to complete prolonged physical activity 3) shortness of breath with ambulation 4) Balance deficits.) Goals - Goals Physical Therapy Goals: 1) The patient will ambulate distances of 150 feet with assistive device independently with minimal to no shortness of breath and normal O2 sat. level. 2) Increase LE strength 1/3 muscle grade to improve stability with functional activities. 3) The patient will tolerate 45 to 30 minutes of physical activity with one rest period. 4) Improve Balance using the Tinetti Assessment Tool 3 to 4 points to improve safety with ADL's. Prognosis - Prognosis Good Plan - Plan Physical Therapy Plan: PT M-F 1 to 2 times a day for LE strengthening and muscular endurance exercises, balance exercises, breathing exercises and mobilty.
--- NOTE | 2017-08-26 11:05 | Rehab Evaluation ---
Patient Information - Patient Information Diagnosis: Deconditioning r/t pneumonia Ordered Treatment: OT Evaluate and Treat Status: Initial Evaluation Past Medical/Surgical Hx: PAST MEDICAL/SURGICAL HISTORY Past Surgical History triple cardiac bypass hysterectomy cholecystectomy appendectomy tonsillectomy multiple cardiac stents PMH - Respiratory Hx Respiratory Disorders Yes Hx Asthma Yes Hx Sleep Apnea Yes: non-compliant with CPAP Hx of CPAP Yes Comment: CPAP PMH - Cardiovascular Hx Cardiovascular Disorders Yes Hx Abnormal EKG Yes Hx Cardiac Catheterization Yes: 14 stents Hx Congestive Heart Failure Yes Hx Edema Yes Hx Heart Attack Yes Hx Hypertension Yes Hx Irregular Heartbeat Yes Hx Vascular Disease Yes Hx Transient Ischemic Attacks Yes (TIA) Comment: high cholesterol PMH - Neuro Hx Neurological Disorders Yes Hx Cerebrovascular Accident Yes Hx Dizziness Yes Hx Headaches Yes Hx Neuropathy Yes Hx Syncope Yes Hx Transient Ischemic Attacks Yes (TIA) PMH - GI Hx Gastrointestinal Disorders Yes Hx Gastroesophageal Reflux Yes Hx Obstructive Bowel Yes Comment: HX bowel CA PMH - Hx Genitourinary Disorders Yes Hx Bladder Problem Yes Comment: [place] when voiding PMH - Endocrine Hx Endocrine Disorders Yes Hx Diabetes Yes Hx Thyroid Disease Yes Hx of IDDM Yes PMH - Musculoskeletal Hx Musculoskeletal Disorders Yes Hx Arthritis Yes Hx Back Injury Yes Hx Fibromyalgia Yes Hx Musculoskeletal Disease Yes Hx Osteoporosis Yes: osteopenia Comment: diabetic neuropathy PMH - Psych Hx Psychiatric Problems Yes Hx Anxiety Yes Hx Depression Yes PMH - Hematology/Oncology Hx Hematology/Oncology Yes Disorders Hx Cancer Yes: ovarian, bowel, mouth Hx Chemotherapy No Hx Radiation Therapy Yes Premorbid Status: Detail (The patient was ambulatory with 4 wheeled walker and used a electric wheelchair when traveling distances ie: around apartment complex. The patient's sister in law and another home health aide assisted patient with meals, parts sales representative, laundry and ADL's(showering and dressing) . She was able to complete light meal prep.) Social History: Detail (The patient lives alone in a first floor apartment, no stairs at the entrance. The bathroom is equipped with a walk in shower with a shower seat and grab bars and a toilet with a riser seat. The patient has a 4 wheeled walker, hospital bed, lift chair and an electric wheelchair.) Precautions: [place], Fall - Time With Patient Total Time Spent With Patient (Min): 35 Treatment Procedures: Detail (OT eval low complexity) Subjective Information - Subjective Information Per Patient Objective Data - Pain Pain Present: No - Mental Status Patient Orientation: Oriented x3 - Visual Perception Appears within normal limits for therapeutic activities (Pt wears glasses for reading.) - ROM Not within normal limits ([place] shoulder flexion limited - right 70 degrees, left 90 degrees; jamaal elbow, wrist and hand AROM WNL) - Strength/Tone Not within normal limits (Right shoulder flexion 3-/5, left shoulder flexion 4-/ 5, jamaal elbows and solid propellant processor 4+/5) - Coordination Appears within normal limits for therapeutic activities - Transfers Independent (Ind with sit to stand) - Balance Balance Sitting: Good Balance Standing: Good - Sensation Intact - Gait Detail (Pt ambulated in hallway with 2 wheeled walker and mild shortness of breath.) - ADL's/IADL's Detail (Pt reports she requires assist for bathing and dressing, she was able to doff and don left slipper Indly although she had significant difficulty. Nursing reports she required min assist for sponge bathing and dressing this am. ) Therapy Assessment - Therapy Assessment Detail (Pt presents with decreased shoulder AROM and strength, decreased Ind with self care activities and decreased overall endurance needed for safe and Ind return home.) Problem List - Problem List Occupational Therapy Problem List: Detail (1. Decreased shoulder motion/ strength. 2. Decreased endurance needed for safe and Ind return home. 3. Decreased Ind with dressing/showering.) Goals - Goals Occupational Therapy Goals: 1. Pt will participate in UE exercises to allow Ind with ADLs. 2. Pt will demonstrate improved endurance to allow safe and Ind ADLs. 3. Pt will be safe and Ind with showering and dressing activities using energy conservation techniques. Prognosis - Prognosis Good Plan - Plan Occupational Therapy Plan: OT 2-4 days per week to address UE function, overall endurance and safety with ADL activities.
[2017-08-26] MEDS: FLUTICASONE PROPIONATE 50MCG NASAL 16 GM BTL SCH ×2 (11:21→22:43)
[2017-08-26] MEDS: LEVEMIR FLEXTOUCH 100 UNIT/ML INSULIN PEN SQ SCH ×2 (11:21→22:49)
[2017-08-26] MEDS: VENLAFAXINE ER 75 MG CAPSULE PO SCH (11:21)
[2017-08-26] MEDS: FERROUS SULFATE 325 MG TAB PO SCH ×2 (11:24→22:48)
[2017-08-26] MEDS: ASPIRIN 81 MG TABEC PO SCH (11:24)
[2017-08-26] MEDS: GABAPENTIN 300 MG CAPSULE PO SCH ×3 (11:24→22:45)
[2017-08-26] MEDS: METOPROLOL SUCC 25 MG TAB.ER PO SCH (11:24)
[2017-08-26] MEDS: LISINOPRIL 10 MG TABLET PO SCH (11:24)
[2017-08-26] MEDS: FUROSEMIDE 20 MG TABLET PO SCH (11:24)
[2017-08-26] MEDS: BACLOFEN 10 MG TABLET PO SCH ×2 (11:25→22:47)
[2017-08-26] MEDS: CLOPIDOGREL 75MG TABLET PO SCH (11:25)
[2017-08-26] MEDS: ISOSORBIDE MONONITRATE 30 MG TAB.ER.24H PO SCH (11:25)
[2017-08-26] MEDS: DULOXETINE HCL 30 MG CAPSULE.DR PO SCH ×2 (11:25→22:46)
[2017-08-26] MEDS: LIDOCAINE 5% PATCH TOP SCH (11:26)
--- NOTE | 2017-08-26 14:22 | Physical Therapy Tx Note ---
Physical Therapy Tx Note - Treatment Note Tolerated: Fair Total Time Spent With Patient: 25 Physical Therapy Tx Note: Detail (The patient was lying in bed when PT arrived. The patient was independent with sit to supine with increased effort required. The patient completed balance exercises included Romberg stance and tandem stance. The patient then ambulated with wheeled walker a distance of 158 feet, PT noticed patient became increasingly short of breath, although patient stated she was fine. O2 sat level was tested and was 73. The patient sat in surgical waiting room x 5 minutes with maximal verbal cues to purse lip breath. O2 level returned to 90. The patient ambulated back to room 150 feet with O2 level remaining 88. The patient was then instructed in LE exercises including: knee flexion/extension, marching, ankle pumps hip adductor squeezes and hip abduction with red T-band all x 10 reps. The patient's O2 sat level remained 89. The patient then returned to bed with call light in place. Nursing staff was notified of the drop in O2 sat. level.) Physical Therapy Problem List: Detail (1) Decreased LE strength 2) Decreased ability to complete prolonged physical activity 3) shortness of breath with ambulation 4) Balance deficits.) Physical Therapy Goals: 1) The patient will ambulate distances of 150 feet with assistive device independently with minimal to no shortness of breath and normal O2 sat. level. 2) Increase LE strength 1/3 muscle grade to improve stability with functional activities. 3) The patient will tolerate 45 to 30 minutes of physical activity with one rest period. 4) Improve Balance using the Tinetti Assessment Tool 3 to 4 points to improve safety with ADL's. Physical Therapy Plan: PT M-F 1 to 2 times a day for LE strengthening and muscular endurance exercises, balance exercises, breathing exercises and mobilty.
[2017-08-26] MEDS: ATORVASTATIN 20 MG TABLET PO SCH (22:46)
[2017-08-26] MEDS: AMITRIPTYLINE 10 MG TAB PO SCH (22:47)
[2017-08-26] MEDS: REMOVE PATCH 1 EACH MISC TD SCH (22:48)
[2017-08-26] MEDS: ACETAMINOPHEN 500 MG TABLET PO PRN (23:16)
[2017-08-27] MEDS: LEVOTHYROXINE SODIUM 50 MCG TABLET PO SCH (07:56)
[2017-08-27] MEDS: PANTOPRAZOLE SODIUM 40 MG TABLET PO SCH (07:56)
[2017-08-27] MEDS: METFORMIN 500 MG TABLET PO SCH ×2 (07:56→18:26)
[2017-08-27] MEDS: UMECLIDINIUM BROMIDE (INCRUSE) 62.5MCG IH SCH (08:46)
[2017-08-27] MEDS: ISOSORBIDE MONONITRATE 30 MG TAB.ER.24H PO SCH (10:54)
[2017-08-27] MEDS: VENLAFAXINE ER 75 MG CAPSULE PO SCH (10:54)
[2017-08-27] MEDS: CLOPIDOGREL 75MG TABLET PO SCH (10:54)
[2017-08-27] MEDS: FERROUS SULFATE 325 MG TAB PO SCH ×2 (10:54→21:12)
[2017-08-27] MEDS: LISINOPRIL 10 MG TABLET PO SCH (10:55)
[2017-08-27] MEDS: FLUTICASONE PROPIONATE 50MCG NASAL 16 GM BTL SCH ×2 (10:55→21:13)
[2017-08-27] MEDS: GABAPENTIN 300 MG CAPSULE PO SCH ×3 (10:55→21:12)
[2017-08-27] MEDS: METOPROLOL SUCC 25 MG TAB.ER PO SCH (10:55)
[2017-08-27] MEDS: ASPIRIN 81 MG TABEC PO SCH (10:55)
[2017-08-27] MEDS: LIDOCAINE 5% PATCH TOP SCH (10:55)
[2017-08-27] MEDS: BACLOFEN 10 MG TABLET PO SCH ×2 (10:55→21:12)
[2017-08-27] MEDS: DULOXETINE HCL 30 MG CAPSULE.DR PO SCH ×2 (10:55→21:12)
[2017-08-27] MEDS: FUROSEMIDE 20 MG TABLET PO SCH (10:55)
[2017-08-27] MEDS: LEVEMIR FLEXTOUCH 100 UNIT/ML INSULIN PEN SQ SCH ×2 (10:56→21:14)
[2017-08-27] MEDS: ACETAMINOPHEN 500 MG TABLET PO PRN (15:12)
[2017-08-27] MEDS: AMITRIPTYLINE 10 MG TAB PO SCH (21:12)
[2017-08-27] MEDS: ATORVASTATIN 20 MG TABLET PO SCH (21:12)
[2017-08-27] MEDS: REMOVE PATCH 1 EACH MISC TD SCH (21:20)
[2017-08-28] MEDS: LEVOTHYROXINE SODIUM 50 MCG TABLET PO SCH (07:57)
[2017-08-28] MEDS: METFORMIN 500 MG TABLET PO SCH ×2 (07:57→17:25)
[2017-08-28] MEDS: PANTOPRAZOLE SODIUM 40 MG TABLET PO SCH (07:58)
[2017-08-28] MEDS: UMECLIDINIUM BROMIDE (INCRUSE) 62.5MCG IH SCH (08:01)
[2017-08-28] MEDS: FLUTICASONE PROPIONATE 50MCG NASAL 16 GM BTL SCH ×2 (10:26→22:06)
[2017-08-28] MEDS: ASPIRIN 81 MG TABEC PO SCH (10:26)
[2017-08-28] MEDS: VENLAFAXINE ER 75 MG CAPSULE PO SCH (10:27)
[2017-08-28] MEDS: CLOPIDOGREL 75MG TABLET PO SCH (10:27)
[2017-08-28] MEDS: FUROSEMIDE 20 MG TABLET PO SCH (10:27)
[2017-08-28] MEDS: METOPROLOL SUCC 25 MG TAB.ER PO SCH (10:27)
[2017-08-28] MEDS: ISOSORBIDE MONONITRATE 30 MG TAB.ER.24H PO SCH (10:28)
[2017-08-28] MEDS: GABAPENTIN 300 MG CAPSULE PO SCH ×3 (10:28→22:10)
[2017-08-28] MEDS: DULOXETINE HCL 30 MG CAPSULE.DR PO SCH ×2 (10:28→22:10)
[2017-08-28] MEDS: BACLOFEN 10 MG TABLET PO SCH ×2 (10:28→22:10)
[2017-08-28] MEDS: LISINOPRIL 10 MG TABLET PO SCH (10:28)
[2017-08-28] MEDS: FERROUS SULFATE 325 MG TAB PO SCH ×2 (10:28→22:09)
[2017-08-28] MEDS: LEVEMIR FLEXTOUCH 100 UNIT/ML INSULIN PEN SQ SCH ×2 (10:29→22:07)
[2017-08-28] MEDS: LIDOCAINE 5% PATCH TOP SCH (10:29)
[2017-08-28] MEDS ORDERED: ALBUTEROL SULFATE (0.083%) 2.5 MG/3 ML NEB INH PRN (11:01)
[2017-08-28] MEDS ORDERED: FUROSEMIDE 20 MG TABLET PO ONE (11:01)
[2017-08-28] MEDS: IPRATROPIUM/ALBUTEROL (0.5MG/3MG) NEB INH PRN ×3 (12:33→19:32)
[2017-08-28] MEDS ORDERED: LEVOFLOXACIN 500 MG TABLET PO SCH (14:00)
[2017-08-28] MEDS: GUAIFENESIN/D-METH. 10 ML UDC PO PRN ×2 (14:03→17:25)
[2017-08-28] MEDS: LEVOFLOXACIN 500 MG TABLET PO SCH (14:33)
[2017-08-28] MEDS ORDERED: BUDESONIDE 0.5 MG/2 ML INH ONE (19:19)
[2017-08-28] MEDS: ATORVASTATIN 20 MG TABLET PO SCH (22:09)
[2017-08-28] MEDS: AMITRIPTYLINE 10 MG TAB PO SCH (22:10)
[2017-08-28] MEDS: REMOVE PATCH 1 EACH MISC TD SCH (22:12)
[2017-08-29] MEDS: PANTOPRAZOLE SODIUM 40 MG TABLET PO SCH (06:54)
[2017-08-29] MEDS: LEVOTHYROXINE SODIUM 50 MCG TABLET PO SCH (06:54)
--- NOTE | 2017-08-29 07:58 | RADIOLOGY REPORT ---
EXAM: CHEST, TWO VIEWS HISTORY: COUGH AND CHEST TIGHTNESS. TECHNIQUE: Two views of the chest were obtained. Comparison: CT chest 08/20/17. Chest x-ray 06/09/17. FINDINGS: Frontal and lateral views of the chest show interval ground glass opacities in both perihilar regions. The cardiac silhouette size is within normal limits. No pulmonary vascular congestion. There are tiny pleural effusions. A right subclavian approach central venous catheter again terminates in the right atrium. Bony structures again show chronic rotator cuff disease in both shoulders and mild degenerative changes of the spine. Median sternotomy wires are again seen. IMPRESSION: INTERVAL DEVELOPMENT OF BILATERAL PERIHILAR OPACITIES, LIKELY A TYPICAL INFECTION. RECOMMEND FOLLOW-UP RADIOGRAPHS. JOB NUMBER: [id number] MTDD
[2017-08-29] MEDS: METFORMIN 500 MG TABLET PO SCH ×2 (08:01→16:36)
[2017-08-29] MEDS: IPRATROPIUM/ALBUTEROL (0.5MG/3MG) NEB INH PRN ×4 (08:20→20:42)
[2017-08-29] MEDS: BUDESONIDE 0.5 MG/2 ML INH SCH ×2 (08:20→20:42)
[2017-08-29] MEDS: DULOXETINE HCL 30 MG CAPSULE.DR PO SCH ×2 (09:37→23:08)
[2017-08-29] MEDS: VENLAFAXINE ER 75 MG CAPSULE PO SCH (09:37)
[2017-08-29] MEDS: ASPIRIN 81 MG TABEC PO SCH (09:37)
[2017-08-29] MEDS: ISOSORBIDE MONONITRATE 30 MG TAB.ER.24H PO SCH (09:38)
[2017-08-29] MEDS: FERROUS SULFATE 325 MG TAB PO SCH ×2 (09:39→23:07)
[2017-08-29] MEDS: FUROSEMIDE 20 MG TABLET PO SCH (09:39)
[2017-08-29] MEDS: LIDOCAINE 5% PATCH TOP SCH (09:39)
[2017-08-29] MEDS: BACLOFEN 10 MG TABLET PO SCH ×2 (09:40→23:07)
[2017-08-29] MEDS: METOPROLOL SUCC 25 MG TAB.ER PO SCH (09:40)
[2017-08-29] MEDS: GABAPENTIN 300 MG CAPSULE PO SCH ×3 (09:40→23:08)
[2017-08-29] MEDS: CLOPIDOGREL 75MG TABLET PO SCH (09:40)
[2017-08-29] MEDS: LISINOPRIL 10 MG TABLET PO SCH (09:40)
[2017-08-29] MEDS: LEVEMIR FLEXTOUCH 100 UNIT/ML INSULIN PEN SQ SCH ×2 (09:41→23:09)
--- NOTE | 2017-08-29 09:43 | Occupational Therapy Tx Note ---
Occupational Therapy Tx Note - Treatment Note Tolerated: Good Total Time Spent With Patient: 35 (ADL) Occupational Therapy Treatment Note: Detail (S: Pt resting in bed, very short of breath. O: Supine to sit Indly, amb to bathroom with 4 wheeled walker Indly and toileted Indly. Pt doffed PJ gown, briefs and slipper socks Indly with short rest breaks as needed for shortness of breath. Pt amb to shower and completed showering in sitting and standing with hand held shower and grab bar. She required assist to wash back. Pt dried self Indly and donned PJ top, briefs and PJ bottoms Indly with significant shortness of breath. Pt amb to sink and completed oral hygiene and brushed hair Indly. Pt amb to chair with 4 wheeled walker Indly. A: Pt is Ind with showering and dressing with exception of washing back. Ind with functional mobility within room. Significant shortness of breath with ADLs.) Occupational Therapy Problem List: Detail (1. Decreased shoulder motion/ strength. 2. Decreased endurance needed for safe and Ind return home. 3. Decreased Ind with dressing/showering.) Occupational Therapy Goals: 1. Pt will participate in UE exercises to allow Ind with ADLs. 2. Pt will demonstrate improved endurance to allow safe and Ind ADLs. 3. Pt will be safe and Ind with showering and dressing activities using energy conservation techniques. Prognosis: Good Occupational Therapy Plan: OT 2-4 days per week to address UE function, overall endurance and safety with ADL activities.
[2017-08-29] MEDS: LEVOFLOXACIN 500 MG TABLET PO SCH (13:56)
--- NOTE | 2017-08-29 14:57 | Swallow Evaluation ---
Swallow Evaluation - General Patient Information Date of Assessment: 08/29/17 Referral Date: 08/26/17 Date of Onset: 08/22/17 Admitting Diagnosis: Deconditioning due to pneumonia Medical History: CHF, UTI, DM II, Asthma, GERD, Hx of CVA, Hearing loss, CAD Current Feeding Status: All oral Cognitive Status: Grossly intact. Oral Motor Assessment - Lips Lips at Rest: Normal Function Lip Retraction: Normal Function Lip Protrusion: Abnormal Function - Tongue Tongue at Rest: Normal Function Tongue Protrusion: Normal Function Tongue Elevation: Normal Function Tongue Lateralization: Normal Function - Velum Velum at Rest: Normal Function Velum Elevation: Normal Function - Additional Information Oral Sensitivity: WFL Volitional Cough/Throat Clearing: Weak - difficult to terminate once initiated. Other Oral Motor Comment: Mild ROM/coordination for alternating movements and jaw isolation. Swallow Assessment - Oral Preparatory Phase Phase - Liquid: Normal Function Phase - Puree: Normal Function Phase - Solid: Abnormal Function - Oral Phase Phase - Liquid: Normal Function Phase - Puree: Normal Function Phase - Solid: Abnormal Function - Pharyngeal Phase Phase - Liquid: Normal Function Phase - Puree: Normal Function Phase - Solid: Abnormal Function - Additional Information Swallow Assessment Comment: Pt seen at bedside for clinical swallow eval. Patient positioned as close to 90 degrees upright as she would tolerate - approximately 80 degrees. This assessment revealed mild oropharyngeal dysphagia primarily characterized by edentulous status and decreased general awareness of surroundings. Pt frequently experiences where she feels foods or pills are stuck on the left side of her body - frequently gesturing to her jaw line on that side or to a point on her neck and chest which is below the larynx. Upon bolus trials the patient experienced no trouble with liquids initially but had a hard time with the texture of a moistened joan cracker which then led to regurgitation and coughing episodes of any bolus (liquid or solid) which left her very red in the face and with a persistant cough but cleared with additional time. The patient self reports that this happens with every meal and that she is able to feel something stuck at one of those two points mentioned above after she eats anything solid. Pt instructed to remain upright for the next 30 minutes or more and was left with her call light within reach. Plan for Treatment - Diagnosis/Clinical Impression Diagnosis: Pharyngeal Dysphagia - Supsected Esophogeal Dysphagia. - Consistency Modification Consistency Modification: Soft Liquid Modification: Regular Medication Modification: Regular - Behavior Modification Behavior Modification: Small Sips, Position upright for all oral intake - Additional Plan Details Videofluroscopic Swallow Study Ordered: No (Consider GI first. ) Diagnosis/Recommendation Discussed With: Patient Goals for Treatment - Additional Goal Detail Additional Goal Detail: No goals established at this time continue with Dysphagia II diet. Consider referral to GI if symptoms of regurgitation/ motility continue.
--- NOTE | 2017-08-29 16:20 | Physical Therapy Tx Note ---
Physical Therapy Tx Note - Treatment Note Tolerated: Good Total Time Spent With Patient: 30 Physical Therapy Tx Note: Detail (The patient was in bed when PT arrived. The patient ambulated with 4 wheeled walker 212 feet x 1, 110 feet x 1 with supervision for safety only. The patient completed the following exercises: standing balance in Romberg, mid stance and sharpened Romberg position, side stepping, backward stepping. LE strengthening exercises including standing squats, hip abduction, hip extension and seated red T-band LAQ, hamstring curls and adductor ball squeezes all exercises x 10 reps. The patient's O2 sat. level remained in the 90's.) Physical Therapy Problem List: Detail (1) Decreased LE strength 2) Decreased ability to complete prolonged physical activity 3) shortness of breath with ambulation 4) Balance deficits.) Physical Therapy Goals: 1) The patient will ambulate distances of 150 feet with assistive device independently with minimal to no shortness of breath and normal O2 sat. level. 2) Increase LE strength 1/3 muscle grade to improve stability with functional activities. 3) The patient will tolerate 45 to 30 minutes of physical activity with one rest period. 4) Improve Balance using the Tinetti Assessment Tool 3 to 4 points to improve safety with ADL's. Physical Therapy Plan: PT M-F 1 to 2 times a day for LE strengthening and muscular endurance exercises, balance exercises, breathing exercises and mobilty.
[2017-08-29] MEDS: FLUTICASONE PROPIONATE 50MCG NASAL 16 GM BTL SCH ×2 (23:05→23:06)
[2017-08-29] MEDS: AMITRIPTYLINE 10 MG TAB PO SCH (23:08)
[2017-08-29] MEDS: ATORVASTATIN 20 MG TABLET PO SCH (23:08)
[2017-08-29] MEDS: REMOVE PATCH 1 EACH MISC TD SCH (23:09)
[2017-08-30] MEDS: ACETAMINOPHEN 500 MG TABLET PO PRN (01:54)
[2017-08-30] MEDS: IPRATROPIUM/ALBUTEROL (0.5MG/3MG) NEB INH PRN (05:57)
[2017-08-30] MEDS: BUDESONIDE 0.5 MG/2 ML INH SCH (05:57)
[2017-08-30] MEDS: PANTOPRAZOLE SODIUM 40 MG TABLET PO SCH (06:36)
[2017-08-30] MEDS: LEVOTHYROXINE SODIUM 50 MCG TABLET PO SCH (06:36)
[2017-08-30] MEDS: METFORMIN 500 MG TABLET PO SCH (08:00)
[2017-08-30] MEDS: GUAIFENESIN/D-METH. 10 ML UDC PO PRN (08:01)
[2017-08-30 08:59] LABS: HEMATOCRIT 26.4 % (35.0-47.0); HEMOGLOBIN 8.2 gm/dl (11.6-16.0); MEAN CELL VOLUME 89.2 fl (81-97); MEAN CORPUSCULAR HEMOGLOBIN 27.7 pg (27-33); MEAN CORPUSCULAR HGB CONC 31.1 g/dl (32-36); RED BLOOD COUNT 2.96 M/uL (3.80-5.40); WHITE BLOOD COUNT W/O DIFF 2.7 K/uL (4.2-12.2)
[2017-08-30 09:16] LABS: CREATININE 1.3 mg/dL (0.5-0.9)
[2017-08-30] MEDS ORDERED: SPS 15 GM/60 ML PO ONE (10:02)
[2017-08-30 10:06] LABS: PLATELET COUNT 35 K/uL (130-400)
--- NOTE | 2017-08-30 10:30 | Discharge Summary ---
Providers Discharge Summary Date: 08/30/17 Date of admission: 08/25/17 16:05 Attending physician: PJ KEENE Primary care physician: Paras Powell Physical Exam - Vital Signs Vital Signs: Vital Signs - Last 24 Hrs Temp Pulse Resp BP Pulse Ox 08/30/17 06:00 67 16 99 08/30/17 05:57 68 16 100 08/29/17 20:45 81 18 98 08/29/17 16:30 92 H 20 08/29/17 13:45 98.1 F 128/63 - General General Appearance: Alert, Oriented x3, Cooperative, No acute distress - Head Head exam: Normal inspection - ENT ENT exam: Normal exam, Mucous membranes moist, Normal external ear exam, Normal orophraynx, TM's normal bilaterally Ear exam: Normal external inspection. negative: External canal tenderness Nasal Exam: Normal inspection. negative: Discharge, Sinus tenderness Mouth exam: Normal external inspection, Tongue normal Teeth exam: Normal inspection. negative: Dental caries Throat exam: Normal inspection. negative: Tonsillar erythema, Tonsillar exudate - Respiratory Respiratory exam: Rhonchi, Wheezes. negative: Respiratory distress - Cardiovascular Cardiovascular Exam: Normal rhythm, Normal heart sounds, Irregular rhythm. negative: Regular rate Peripheral Pulses: 2+: Dorsalis Pedis (R), Dorsalis Pedis (L), 3+: Radial (R), Radial (L) - GI/Abdominal GI/Abdominal exam: Soft, Normal bowel sounds. negative: Tenderness - Extremities Extremities exam: Pedal edema - Neurological Neurological exam: Alert, Altered, CN II-XII intact - Psychiatric Psychiatric exam: Normal affect, Normal mood - Skin Skin exam: Erythema, Pallor, Other (left MCP bruising, right ant lower leg bruise) Hospitalization - Hospitalization Admission Diagnosis: Deconditioning r/t pneumonia - Problem List (1) Physical deconditioning Current Visit: Yes Status: Acute Base Code: R53.81 - OTHER MALAISE Comment : 08/26/17: - Recent history of fall and admission to [facility]. Patient had some PT/OT while there. - Consult to PT/OT for evalutation and treatment. - Fall precuations: lower bed/alarm, anti-slip socks, ambulation with assist. (2) Diabetes mellitus type II, controlled Current Visit: Yes Status: Acute Base Code: E11.9 - TYPE 2 DIABETES MELLITUS WITHOUT COMPLICATIONS Comment: 08/26/17: - Resume Levemir 10 units QHS and Metformin 500mg BID, CARLOS, Statin - Accuchecks AcHs, ADA diet (3) Anxiety and depression Current Visit: No Status: Acute Base Code: F41.8 - OTHER SPECIFIED ANXIETY DISORDERS Comment: 08/26/17: - on Xanax, Cymbalta, Pamelor and Effexor. - Will resume dosing but would recommend tapering and d/c of some of these mdications based on BEERS criteria. This combination of medications are the likely cause of her gait/stance issues. (4) CAD (coronary artery disease) Current Visit: Yes Status: Acute Base Code: I25.10 - ATHSCL HEART DISEASE OF INUPIAT CORONARY ARTERY W/O ANG PCTRS Comment: 08/26/17: - cont ASA, Plavix, statin, BB, CARLOS, Nitro PRN. (5) Hypothyroid Current Visit: No Status: Acute Base Code: E03.9 - HYPOTHYROIDISM, UNSPECIFIED Comment: 08/26/17: - resume Levothyroxine 50mcg. (6) Code status needs review Current Visit: No Status: Acute Base Code: [id number] - Comment: 08/26/17: Will discuss with patient and update in documentation. - Hospitalization Course Hospital Course: Mrs. Diaz is a pleasant 81 y/o female admitted to swing bed after being discharged from [facility] yesterday. According to the patient, about 1 week ago she fell in her bathroom when she was trying to get up from the toilet. She was able to call EMS using her life alert button and she was taken to the ED. On workup the patient was treated for a pneumonia and a urinary tract infection. She also has multiple co-morbidities that were being managed inclusive of depression, diabetes mellitus II, hypothyroidism and coronary artery disease. The patient lives alone but has caregivers who come in three days per week to assist her with ADLs/IADLs. She is able to ambulate around her home with the use of a rolling walker. She is admitted to swing bed as a result of deconditioning and unsteady gait. 08/30: Patient's lungs sound more wheezy and there is more ronchi. CXR shows interval development of lung infiltrates. Levaquin has been resumed. Labs reveal hyperkalemia, and low platelets. Considering the physical findings, new labs and her inability to participate in PT/OT at this time we will convert the patient to inpatient status. Procedures: Imaging and X-Rays 08/28/17 11:01 CHEST 2 VIEWS [RAD] Stat Cardiology Procedures 08/30/17 10:01 Water Pump Operator .Continuous Abnormal Labs: Abnormal Lab Results 08/25/17 08/25/17 08/26/17 Range/Units 17:00 21:32 07:45 WBC (4.2-12.2) K/uL RBC (3.80-5.40) M/uL Hgb (11.6-16.0) gm/dl Hct (35.0-47.0) % MCHC (32-36) g/dl RDW (11.5-14.5) % Plt Count (130-400) K/uL MPV (7.4-10.4) fl Lymphocytes (16-45) % Monocytes (0-9) % Eosinophil Count (0-6) % Potassium (3.4-4.5) mmol/L Carbon Dioxide (22-29) mmol/L BUN (8-23) mg/dL Creatinine (0.5-0.9) mg/dL POC Glucose 140 H 148 H 148 H (70-110) mg/dL Random Glucose (74-109) mg/dL Calcium (8.8-10.2) mg/dL 08/26/17 08/26/17 08/27/17 Range/Units 11:50 17:00 07:45 WBC (4.2-12.2) K/uL RBC (3.80-5.40) M/uL Hgb (11.6-16.0) gm/dl Hct (35.0-47.0) % MCHC (32-36) g/dl RDW (11.5-14.5) % Plt Count (130-400) K/uL MPV (7.4-10.4) fl Lymphocytes (16-45) % Monocytes (0-9) % Eosinophil Count (0-6) % Potassium (3.4-4.5) mmol/L Carbon Dioxide (22-29) mmol/L BUN (8-23) mg/dL Creatinine (0.5-0.9) mg/dL POC Glucose 170 H 150 H 142 H (70-110) mg/dL Random Glucose (74-109) mg/dL Calcium (8.8-10.2) mg/dL 08/27/17 08/27/17 08/28/17 Range/Units 11:45 17:00 07:45 WBC (4.2-12.2) K/uL RBC (3.80-5.40) M/uL Hgb (11.6-16.0) gm/dl Hct (35.0-47.0) % MCHC (32-36) g/dl RDW (11.5-14.5) % Plt Count (130-400) K/uL MPV (7.4-10.4) fl Lymphocytes (16-45) % Monocytes (0-9) % Eosinophil Count (0-6) % Potassium (3.4-4.5) mmol/L Carbon Dioxide (22-29) mmol/L BUN (8-23) mg/dL Creatinine (0.5-0.9) mg/dL POC Glucose 179 H 153 H 117 H (70-110) mg/dL Random Glucose (74-109) mg/dL Calcium (8.8-10.2) mg/dL 08/28/17 08/28/17 08/29/17 Range/Units 11:50 17:28 07:36 WBC (4.2-12.2) K/uL RBC (3.80-5.40) M/uL Hgb (11.6-16.0) gm/dl Hct (35.0-47.0) % MCHC (32-36) g/dl RDW (11.5-14.5) % Plt Count (130-400) K/uL MPV (7.4-10.4) fl Lymphocytes (16-45) % Monocytes (0-9) % Eosinophil Count (0-6) % Potassium (3.4-4.5) mmol/L Carbon Dioxide (22-29) mmol/L BUN (8-23) mg/dL Creatinine (0.5-0.9) mg/dL POC Glucose 139 H 155 H 137 H (70-110) mg/dL Random Glucose (74-109) mg/dL Calcium (8.8-10.2) mg/dL 08/29/17 08/29/1718 Range/Units 11:28 16:50 08:45 WBC 2.7 L (4.2-12.2) K/uL RBC 2.96 L (3.80-5.40) M/uL Hgb 8.2 L (11.6-16.0) gm/dl Hct 26.4 L (35.0-47.0) % MCHC 31.1 L (32-36) g/dl RDW 17.0 H (11.5-14.5) % Plt Count 35 L* (130-400) K/uL MPV 11.0 H (7.4-10.4) fl Lymphocytes 14.0 L (16-45) % Monocytes 13.0 H (0-9) % Eosinophil Count 8.0 H (0-6) % Potassium (3.4-4.5) mmol/L Carbon Dioxide (22-29) mmol/L BUN (8-23) mg/dL Creatinine (0.5-0.9) mg/dL POC Glucose 183 H 191 H (70-110) mg/dL Random Glucose (74-109) mg/dL Calcium (8.8-10.2) mg/dL 08/30/17 Range/Units 08:45 WBC (4.2-12.2) K/uL RBC (3.80-5.40) M/uL Hgb (11.6-16.0) gm/dl Hct (35.0-47.0) % MCHC (32-36) g/dl RDW (11.5-14.5) % Plt Count (130-400) K/uL MPV (7.4-10.4) fl Lymphocytes (16-45) % Monocytes (0-9) % Eosinophil Count (0-6) % Potassium 5.7 H (3.4-4.5) mmol/L Carbon Dioxide 30.0 H (22-29) mmol/L BUN 24 H (8-23) mg/dL Creatinine 1.3 H (0.5-0.9) mg/dL POC Glucose (70-110) mg/dL Random Glucose 151 H (74-109) mg/dL Calcium 8.4 L (8.8-10.2) mg/dL Discharge Medications - Discharge Medications Home Medications: Ambulatory Orders Aspirin [Aspir-Low] 81 mg PO DAILY 01/27/17 [Last Taken Unknown] Atorvastatin Calcium [Lipitor] 20 mg PO QHS 01/27/17 [Last Taken Unknown] Clopidogrel Bisulfate [Clopidogrel] 75 mg PO DAILY 01/27/17 [Last Taken Unknown] Duloxetine HCl [Cymbalta] 60 mg PO BID 01/27/17 [Last Taken Unknown] Isosorbide Mononitrate [Imdur] 30 mg PO DAILY 01/27/17 [Last Taken Unknown] Levothyroxine Sodium 50 mcg PO QAM 01/27/17 [Last Taken Unknown] Nitroglycerin [Nitrostat] 0.4 mg SL Q5MIN PRN 01/27/17 [Last Taken Unknown] Nortriptyline HCl 20 mg PO QHS 01/27/17 [Last Taken Unknown] Omeprazole [Prilosec] 20 mg PO QAM 01/27/17 [Last Taken Unknown] Lisinopril 10 tab PO DAILY 01/29/17 [Last Taken Unknown] Venlafaxine HCl 100 mg PO BID 01/29/17 [Last Taken Unknown] Metoprolol Succinate 25 mg PO DAILY tab 07/21/17 [Last Taken Unknown] Albuterol Sulfate [Ventolin Hfa] 2 inh INH [id number] 08/20/17 [Last Taken Unknown] Baclofen 10 mg PO DAILY 08/28/17 [Last Taken Unknown] Ferrous Sulfate [Iron] 325 mg PO BID 08/28/17 [Last Taken Unknown] Fluticasone Propionate [Flonase] 1 spray EACH NARES BID 08/28/17 [Last Taken Unknown] Furosemide [Lasix] 20 mg PO DAILY 08/28/17 [Last Taken Unknown] Gabapentin [Neurontin] 300 mg PO TID 08/28/17 [Last Taken Unknown] Insulin Detemir [Levemir Flextouch] 10 unit SQ BID 08/28/17 [Last Taken Unknown] Lidocaine [Lidoderm] 1 each TP DAILY 08/28/17 [Last Taken Unknown] Metformin HCl 500 mg PO BIDWM 08/28/17 [Last Taken Unknown] Tiotropium [place] [Spiriva] 18 mcg IH DAILY 08/28/17 [Last Taken Unknown] Discharge Plan - Discharge Instructions Activity at Discharge: Wear Oxygen At All Times Diet at Discharge: Diabetic Diet, Low Fat, Low Cholesterol, Low Salt Diet Additional Instructions: Admit to inpatient Quality Measures - Quality Measures Quality Measures: Atrial Fibrillation & Atrial Flutter: Chronic Anticoagulation Therapy, Advance Directives, Coronary Artery Disease: Antiplatelet Therapy, Documentation of Current Medications in Medical Record, Elder Maltreatment Screen and Follow-Up Plan, Heart Failure, Screening for High Blood Pressure and F/U Documented - Current Medications Quality Measure: Measure #130: Documentation of Current Medications Documentation of Current Medications: <Current Medications Documented/Reviewed> [[id number]] - Blood Pressure Screening Quality Measure: Screening for High Blood Pressure and Follow-Up Documented Does Patient Have Any of the Following: Active Dx of HTN Blood Pressure Classification: Pre-Hypertensive BP Reading Systolic Measurement: 128 Diastolic Measurement: 63 Screening for High Blood Pressure: Patient Exclusion, Hx of HTN [[id number]] Pre-Hypertensive Follow-up Interventions: Lifestyle modifications. Lifestyle Modification: Weight Reduction - Atrial Fibrillation and Atrial Flutter Quality Measure: Atrial Fibrillation & Atrial Flutter: Chronic Anticoagulation Therapy Does Patient Have Any of the Following: No CHADS2 Risk Stratification: Prior Stroke/TIA or Systemic Embolism, Age 75 or Greater, Hypertension, Diabetes Mellitus, Heart Failure or Impaired LVSF Risk Stratification Summary: One or more high risk factors OR more than one moderate risk factor exists. [[id number]] Anticoagulation Therapy: Not Prescribed, Reason Not Given [G8971] - Coronary Artery Disease Quality Measure: Measure #6: Coronary Artery Disease (CAD) Antiplatelet Therapy: Not Prescribed for Medical Reason [4086F with 1P] Medical Reason for NOT Prescribing Antiplatelet: Bleeding Coagulation Disorder - Heart Failure (CARLOS/ARB Therapy) Quality Measure: Heart Failure Left Ventricular Systolic Function: Unknown CARLOS Inhibitor or ARB Therapy for LVSD: Not Eligible - Heart Failure (Beta-yang Therapy) Quality Measure: Heart Failure Left Ventricular Systolic Function: Unknown Beta-Yang Therapy for LVEF < 40%: Not Eligible - Advance Directives Quality Measure: Measure #47: Care Plan Advance Directives Established: Yes Advance Directives Information Provided To Patient: No Advance Directives on File: No Living Will: No Power of Lockstitch Machine Operator: Yes Advance Care Planning: <Care Plan/Decision Maker Not Decided; Discussed & Documented> [[id number]] - Elder Abuse Suspicion Index Screening: Elder Abuse Suspicion Index Screening Rely on people for bathing, dressing, shopping, banking, etc: No Prevented from getting food, clothes, medication, etc: No Made to feel shamed or threatened by someone: No Forced to sign papers or use money against will: No Feel afraid, touched in ways not wanted or hurt physically: No Poor eye contact, withdrawn, malnourished, cuts or bruises: No Screening Result: Negative result EASI Reference Information: Meggan SELLERS, Santa Black, Vanessa Rutledge, Irish Lo.Development and validation of a tool to assist physicians identification of elder abuse: The Elder Abuse Suspicion Index (EASI ). Journal of Elder Abuse and Neglect, 2008; 20 (3): 276-300. - Elder Maltreatment Screen Quality Measures: Elder Maltreatment Screen and Follow-Up Plan Elder Maltreatment Screen: <Negative, No Follow-Up Plan Required> [G8734]
[2017-08-30] MEDS ORDERED: SPS 15 GM/60 ML PO STA (10:39)
[2017-08-30] MEDS: BACLOFEN 10 MG TABLET PO SCH (10:40)
[2017-08-30] MEDS: VENLAFAXINE ER 75 MG CAPSULE PO SCH (10:41)
[2017-08-30] MEDS: DULOXETINE HCL 30 MG CAPSULE.DR PO SCH (10:41)
[2017-08-30] MEDS: GABAPENTIN 300 MG CAPSULE PO SCH (10:42)
[2017-08-30] MEDS: FERROUS SULFATE 325 MG TAB PO SCH (10:42)
[2017-08-30] MEDS: FUROSEMIDE 20 MG TABLET PO SCH (10:42)
[2017-08-30] MEDS: ISOSORBIDE MONONITRATE 30 MG TAB.ER.24H PO SCH (10:43)
[2017-08-30] MEDS: ASPIRIN 81 MG TABEC PO SCH (10:43)
[2017-08-30] MEDS: LISINOPRIL 10 MG TABLET PO SCH (10:43)
[2017-08-30] MEDS: CLOPIDOGREL 75MG TABLET PO SCH (10:43)
[2017-08-30] MEDS: METOPROLOL SUCC 25 MG TAB.ER PO SCH (10:43)
[2017-08-30] MEDS: LIDOCAINE 5% PATCH TOP SCH (10:44)
[2017-08-30] MEDS: FLUTICASONE PROPIONATE 50MCG NASAL 16 GM BTL SCH (10:44)
[2017-08-30] MEDS: LEVEMIR FLEXTOUCH 100 UNIT/ML INSULIN PEN SQ SCH (10:45)
[2017-08-30] MEDS ORDERED: PREDNISONE 20 MG TAB PO SCH (10:45)
--- NOTE | 2017-08-30 10:50 | Physical Therapy Tx Note ---
Physical Therapy Tx Note - Treatment Note Physical Therapy Tx Note: Detail (The patient's medical status has declined. The patient will be placed on hold today from PT and OT per physician's verbal orders. The patient will be transferred to inpatient status.) Physical Therapy Problem List: Detail (1) Decreased LE strength 2) Decreased ability to complete prolonged physical activity 3) shortness of breath with ambulation 4) Balance deficits.) Physical Therapy Goals: 1) The patient will ambulate distances of 150 feet with assistive device independently with minimal to no shortness of breath and normal O2 sat. level. 2) Increase LE strength 1/3 muscle grade to improve stability with functional activities. 3) The patient will tolerate 45 to 30 minutes of physical activity with one rest period. 4) Improve Balance using the Tinetti Assessment Tool 3 to 4 points to improve safety with ADL's. Physical Therapy Plan: PT M-F 1 to 2 times a day for LE strengthening and muscular endurance exercises, balance exercises, breathing exercises and mobilty.
--- NOTE | 2017-08-30 11:05 | Rehab Discharge Summary ---
Patient Information - Patient Information Diagnosis: Deconditioning r/t pneumonia Ordered Treatment: OT Evaluate and Treat Past Medical/Surgical Hx: PAST MEDICAL/SURGICAL HISTORY Past Surgical History triple cardiac bypass hysterectomy cholecystectomy appendectomy tonsillectomy multiple cardiac stents PMH - Respiratory Hx Respiratory Disorders Yes Hx Asthma Yes Hx Sleep Apnea Yes: non-compliant with CPAP Hx of CPAP Yes Comment: CPAP PMH - Cardiovascular Hx Cardiovascular Disorders Yes Hx Abnormal EKG Yes Hx Cardiac Catheterization Yes: 14 stents Hx Congestive Heart Failure Yes Hx Edema Yes Hx Heart Attack Yes Hx Hypertension Yes Hx Irregular Heartbeat Yes Hx Vascular Disease Yes Hx Transient Ischemic Attacks Yes (TIA) Comment: high cholesterol PMH - Neuro Hx Neurological Disorders Yes Hx Cerebrovascular Accident Yes Hx Dizziness Yes Hx Headaches Yes Hx Neuropathy Yes Hx Syncope Yes Hx Transient Ischemic Attacks Yes (TIA) PMH - GI Hx Gastrointestinal Disorders Yes Hx Gastroesophageal Reflux Yes Hx Obstructive Bowel Yes Comment: HX bowel CA PMH - Hx Genitourinary Disorders Yes Hx Bladder Problem Yes Comment: Curry when voiding PMH - Endocrine Hx Endocrine Disorders Yes Hx Diabetes Yes Hx Thyroid Disease Yes Hx of IDDM Yes PMH - Musculoskeletal Hx Musculoskeletal Disorders Yes Hx Arthritis Yes Hx Back Injury Yes Hx Fibromyalgia Yes Hx Musculoskeletal Disease Yes Hx Osteoporosis Yes: osteopenia Comment: diabetic neuropathy PMH - Psych Hx Psychiatric Problems Yes Hx Anxiety Yes Hx Depression Yes PMH - Hematology/Oncology Hx Hematology/Oncology Yes Disorders Hx Cancer Yes: ovarian, bowel, mouth Hx Chemotherapy No Hx Radiation Therapy Yes Premorbid Status: Detail (The patient was ambulatory with 4 wheeled walker and used a electric wheelchair when traveling distances ie: around apartment complex. The patient's sister in law and another home health aide assisted patient with meals, fuel island attendant and ADL's(showering and dressing).) Social History: Detail (The patient lives alone in an apartment on the first floor with no stairs at the entrance. The bathroom is equipped with a walk in shower with a shower seat and grab bars and a toilet with a riser seat. The patient has a 4 wheeled walker, hospital bed , lift chair and an electric wheelchair.) Precautions: [place], Fall Objective Data - Pain Pain Present: No - Mental Status Patient Orientation: Oriented x3 - Visual Perception Appears within normal limits for therapeutic activities - ROM Not within normal limits (Unchanged from initial evaluation) - Strength/Tone Not within normal limits (Unchanged from initial evaluation) - Coordination Appears within normal limits for therapeutic activities - Bed Mobility Independent (Ind with supine to sit.) - Transfers Independent (Ind with sit to stand) - Balance Balance Sitting: Good Balance Standing: Good - Sensation Intact - Gait Detail (Pt ambulating in room with 4 wheeled walker Indly with mod shortness of breath.) - ADL's/IADL's Detail (Pt able to complete total body dressing, showering in sitting and standing (with assist for back) and grooming/hygiene Indly with moderate shortness of breath and short rest breaks.) Therapy Assessment - Therapy Assessment Detail (Pt continues with decreased endurance required for safe and Ind return home.) Problem List - Problem List Physical Therapy Problem List: Detail (1) Decreased LE strength 2) Decreased ability to complete prolonged physical activity 3) shortness of breath with ambulation 4) Balance deficits.) Occupational Therapy Problem List: Detail (1. Decreased shoulder motion/ strength. 2. Decreased endurance needed for safe and Ind return home. 3. Decreased Ind with dressing/showering.) Goals - Goals Physical Therapy Goals: 1) The patient will ambulate distances of 150 feet with assistive device independently with minimal to no shortness of breath and normal O2 sat. level. 2) Increase LE strength 1/3 muscle grade to improve stability with functional activities. 3) The patient will tolerate 45 to 30 minutes of physical activity with one rest period. 4) Improve Balance using the Tinetti Assessment Tool 3 to 4 points to improve safety with ADL's. Occupational Therapy Goals: Goals partially met: 1. Pt will participate in UE exercises to allow Ind with ADLs. 2. Pt will demonstrate improved endurance to allow safe and Ind ADLs. 3. Pt will be safe and Ind with showering and dressing activities using energy conservation techniques. Prognosis - Prognosis Good Plan - Plan Physical Therapy Plan: PT M-F 1 to 2 times a day for LE strengthening and muscular endurance exercises, balance exercises, breathing exercises and mobilty. Occupational Therapy Plan: Pt transferred to status due to worsening medical condition. Discharge from OT at this time.
--- NOTE | 2017-08-30 11:19 | Rehab Discharge Summary ---
Patient Information - Patient Information Diagnosis: Deconditioning r/t pneumonia Ordered Treatment: PT Evaluate and Treat Past Medical/Surgical Hx: PAST MEDICAL/SURGICAL HISTORY Past Surgical History triple cardiac bypass hysterectomy cholecystectomy appendectomy tonsillectomy multiple cardiac stents PMH - Respiratory Hx Respiratory Disorders Yes Hx Asthma Yes Hx Sleep Apnea Yes: non-compliant with CPAP Hx of CPAP Yes Comment: CPAP PMH - Cardiovascular Hx Cardiovascular Disorders Yes Hx Abnormal EKG Yes Hx Cardiac Catheterization Yes: 14 stents Hx Congestive Heart Failure Yes Hx Edema Yes Hx Heart Attack Yes Hx Hypertension Yes Hx Irregular Heartbeat Yes Hx Vascular Disease Yes Hx Transient Ischemic Attacks Yes (TIA) Comment: high cholesterol PMH - Neuro Hx Neurological Disorders Yes Hx Cerebrovascular Accident Yes Hx Dizziness Yes Hx Headaches Yes Hx Neuropathy Yes Hx Syncope Yes Hx Transient Ischemic Attacks Yes (TIA) PMH - GI Hx Gastrointestinal Disorders Yes Hx Gastroesophageal Reflux Yes Hx Obstructive Bowel Yes Comment: HX bowel CA PMH - Hx Genitourinary Disorders Yes Hx Bladder Problem Yes Comment: Curry when voiding PMH - Endocrine Hx Endocrine Disorders Yes Hx Diabetes Yes Hx Thyroid Disease Yes Hx of IDDM Yes PMH - Musculoskeletal Hx Musculoskeletal Disorders Yes Hx Arthritis Yes Hx Back Injury Yes Hx Fibromyalgia Yes Hx Musculoskeletal Disease Yes Hx Osteoporosis Yes: osteopenia Comment: diabetic neuropathy PMH - Psych Hx Psychiatric Problems Yes Hx Anxiety Yes Hx Depression Yes PMH - Hematology/Oncology Hx Hematology/Oncology Yes Disorders Hx Cancer Yes: ovarian, bowel, mouth Hx Chemotherapy No Hx Radiation Therapy Yes Premorbid Status: Detail (The patient was ambulatory with 4 wheeled walker and used a electric wheelchair when traveling distances ie: around apartment complex. The patient's sister in law and another home health aide assisted patient with meals, metalsmith apprentice and ADL's(showering and dressing).) Social History: Detail (The patient lives alone in an apartment on the first floor with no stairs at the entrance. The bathroom is equipped with a walk in shower with a shower seat and grab bars and a toilet with a riser seat. The patient has a 4 wheeled walker, hospital bed , lift chair and an electric wheelchair.) Precautions: [place], Fall Subjective Information - Subjective Information Per Patient (The patient denied pain.) Objective Data - Mental Status Patient Orientation: Oriented x3 - Visual Perception Appears within normal limits for therapeutic activities - ROM Not within normal limits (The patient's bilateral ankle AROM is limited to -5 degrees bilaterally. All other LE AROM is WNL.) - Strength/Tone Not within normal limits (The patient's LE strength was not formally retested and is generally 4- to 4+/5) - Bed Mobility Independent (The patient was independent with supine to and from sit transfer and scooting up in bed.) - Transfers Independent (The patient was independent with sit to and from stand transfer.) - Balance Balance Sitting: Good Balance Standing: Fair (The patient's balance using the Tinnetti Assessment Tool was 19/28 which is in the moderate risk for falling category.) - Gait Detail (The patient was able to ambulate with her 4 wheeled walker a distance of 200 feet with supervision for safety only and shortness of breath.) - Special Tests Yes (The patient's O2 sat level with exercise occasionally dropped to 80 - 83 but usually remains in the 90's.) Therapy Assessment - Therapy Assessment Detail (The patient's medical status declined and patient was transferred to inpatient status. Will follow patient as ordered by physician.) Patient Education - Patient Education Teaching Topic: Exercise/Activity (The patient was instructed in a seated LE strengthening exercise program and was completing this independently.) Response: Return Demonstration Teaching Method: Discussion Teaching Recipient: Patient Barriers To Learning: Age Related Problem List - Problem List Physical Therapy Problem List: Detail (1) Decreased LE strength 2) Decreased ability to complete prolonged physical activity 3) shortness of breath with ambulation 4) Balance deficits.) Occupational Therapy Problem List: Detail (1. Decreased shoulder motion/ strength. 2. Decreased endurance needed for safe and Ind return home. 3. Decreased Ind with dressing/showering.) Goals - Goals Physical Therapy Goals: 1) The patient will ambulate distances of 150 feet with assistive device independently with minimal to no shortness of breath and normal O2 sat. level. ( Goal not Met). 2) Increase LE strength 1/3 muscle grade to improve stability with functional activities.( Unknown if goal was met - not tested due to medical status). 3) The patient will tolerate 45 to 30 minutes of physical activity with one rest period ( Partially Met). 4) Improve Balance using the Tinetti Assessment Tool 3 to 4 points to improve safety with ADL's. (Goal not retested secondary to declining medical status). Occupational Therapy Goals: Goals partially met: 1. Pt will participate in UE exercises to allow Ind with ADLs. 2. Pt will demonstrate improved endurance to allow safe and Ind ADLs. 3. Pt will be safe and Ind with showering and dressing activities using energy conservation techniques. Plan - Plan Physical Therapy Plan: The patient was transferred to inpatient status due to declining medical status. PT will be held per physician's verbal orders. PT will await further orders. Occupational Therapy Plan: Pt transferred to IP status due to worsening medical condition. Discharge from OT at this time.
== END 2017-08-30 10:10 | disposition still patient (30) | DRG 947 ==
LOC: UNDOADMIN 16:05 → MEDSURG 16:05
PROVIDERS: ADMIT Internal Medicine; ATTEND Internal Medicine
DX: R53.81 Other malaise (principal); J18.9 Pneumonia, unspecified organism; R26.81 Unsteadiness on feet; I25.10 Atherosclerotic heart disease of native coronary artery without angina pectoris; Z95.1 Presence of aortocoronary bypass graft; Z90.49 Acquired absence of other specified parts of digestive tract; Z95.5 Presence of coronary angioplasty implant and graft; E11.40 Type 2 diabetes mellitus with diabetic neuropathy, unspecified; Z79.4 Long term (current) use of insulin; I50.9 Heart failure, unspecified; I10 Essential (primary) hypertension; E78.00 Pure hypercholesterolemia, unspecified; J45.909 Unspecified asthma, uncomplicated; E03.9 Hypothyroidism, unspecified; I25.2 Old myocardial infarction; K21.9 Gastro-esophageal reflux disease without esophagitis; M19.90 Unspecified osteoarthritis, unspecified site; M85.80 Other specified disorders of bone density and structure, unspecified site; F41.8 Other specified anxiety disorders; G47.30 Sleep apnea, unspecified; Z86.73 Personal history of transient ischemic attack (TIA), and cerebral infarction without residual deficits; Z85.038 Personal history of other malignant neoplasm of large intestine; Z85.43 Personal history of malignant neoplasm of ovary; Z85.819 Personal history of malignant neoplasm of unspecified site of lip, oral cavity, and pharynx
CPT/HCPCS: 36416; 71046; 80048; 82948; 85027; 94640; 94760; 97110; 97530; 97535; 99306; J7512

== ENCOUNTER 2017-08-30 10:23 | Inpatient (IN) | payer MEDICARE, MEDICAID ==
[2017-08-30] MEDS ORDERED: NITROGLYCERIN 0.4MG SL TABLET #25 BTL SL PRN (10:39)
[2017-08-30] MEDS ORDERED: ONDANSETRON 4 MG ODT TABLET SL PRN (10:40)
[2017-08-30] MEDS: IPRATROPIUM/ALBUTEROL (0.5MG/3MG) NEB INH SCH ×4 (10:44→22:51)
--- NOTE | 2017-08-30 12:38 | History & Physical ---
History of Present Illness - Date of Service Date of Service for History & Physical: 08/30/17 - History of Present Illness Admitting Diagnosis: pneumonia History of Present Illness: Mrs. Lock is a 81 y/o female with multiple co-morbidities who is admitted due to recurring pneumonia and worsening functional status. the patient was admitted to swing bed on TuesdayAugust 26 and was progressing well with physical and occupational therapy. She was [facility] from [facility] after suffering a fall and was subsequently found to have pneumonia and a urinary tract infection. At discharge subacute rehab was recommended for continued strengthening and gait training. Since admission to swing bed the patient's respiratory status has declined with increasing sputum production and ronchi hear on auscultation. The patient has been receiving respiratory therapy yet still appears to have incomplete resolution of infection as noted on the most recent chest xray. She has not complained of shortness of breath or chest pain but she appears more somnolent and more difficult to arouse. The labs drawn this morning show elevated K at 5.7 and thrombocytopenia with platelets at 35K. The low platelets appear to be normal as previous labs show 40k on last visit. She has no active bleeding but is on dual antiplatelet therapy. Travel Screening - Travel/Exposure Within Last 30 Days Have you traveled within the last 30 days?: No - Travel/Exposure Within Last Year Have you traveled outside the [place] in the last year?: No - Additonal Travel Details Have you been exposed to anyone with a communicable illness?: Yes Exposure Details:: being within the hospital at [facility] - Travel Symptoms Symptom Screening: Weakness, Fatigue, Lack of Appetite Past Medical History - SOCIAL HISTORY Smoking Status: Former smoker - RESPIRATORY Hx Respiratory Disorders: Yes Hx Asthma: Yes Hx Sleep Apnea: Yes (non-compliant with CPAP) Comment:: CPAP - CARDIOVASCULAR Hx Cardio Disorders: Yes Hx Abnormal EKG: Yes Hx Cardiac Cath: Yes (14 stents) Hx CHF: Yes Hx Edema: Yes Hx Heart Attack: Yes Hx Hypertension: Yes Hx Irregular Heartbeat: Yes (afib) Hx Vascular Disease: Yes Comment:: high cholesterol - NEURO Hx Neuro Disorders: Yes Hx TIA: Yes - GI Hx GI Disorders: Yes Hx Reflux: Yes Hx Obstructive Bowel: Yes Comment:: HX bowel CA - Hx Genitourinary Disorders: Yes Hx Bladder Problem: Yes - ENDOCRINE Hx Endocrine Disorders: Yes Hx Diabetes: Yes Hx Thyroid Disease: Yes - MUSCULOSKELETAL Hx Musculoskeletal Disorders: Yes Hx Arthritis: Yes Hx Back Injury: Yes Hx Fibromyalgia: Yes Hx Musculoskeletal Disease: Yes Hx Osteoporosis: Yes (osteopenia) Comment:: diabetic neuropathy - PSYCH Hx Psych Problems: Yes Hx Anxiety: Yes Hx Depression: Yes - HEMATOLOGY/ONCOLOGY Hx Hematology/Oncology Disorders: Yes Hx Cancer: Yes (ovarian, bowel, mouth) Hx Chemotherapy: No Hx Radiation Therapy: Yes Hx Blood Transfusions: Yes Family Medical History Any Significant Family History?: Yes Hx Cancer: Father, Mother, Brother/Sister Hx Diabetes: Mother, Brother/Sister H&P Meds/Allergies - Allergies Allergies: Allergies Allergy/AdvReac Type Severity Reaction Status Date / Time allopurinol [ALLOPURINOL] Allergy Unknown SWELLING Verified 08/21/17 01:57 (GENERAL) metoclopramide HCl Allergy Unknown SWELLING Verified 08/21/17 01:57 [From REGLAN] (GENERAL) ranitidine HCl [From ZANTAC] Allergy Unknown SWELLING Verified 08/21/17 01:57 (GENERAL) Sulfa (Sulfonamide Allergy Unknown SWELLING Verified 08/21/17 01:57 Antibiotics) (GENERAL) [SULFA (SULFONAMIDE ANTIBIOTICS)] abciximab [From Reopro] Allergy RASH Verified 08/21/17 01:57 eptifibatide Allergy RASH Verified 08/21/17 01:57 [From Integrilin] NSAIDS (Non-Steroidal Allergy RASH Verified 08/21/17 01:57 Anti-Inflamma verapamil HCl [From CALAN] AdvReac Unknown NAUSEA Verified 08/21/17 01:57 - Active Medications Active Medications: Current Medications Acetaminophen (Tylenol 500mg Tab) 1,000 mg PO Q8H PRN PRN Reason: Pain - General Albuterol Sulfate () 2.5 mg INH Q2H PRN PRN Reason: SHORTNESS OF BREATH Albuterol/Ipratropium (Duoneb) 3 ml INH RESP.Q4H.[facility] Last Admin: 08/30/17 10:44 Dose: 3 ml Amitriptyline HCl (Elavil) 20 mg PO QHS [facility] Atorvastatin Calcium (Lipitor) 20 mg PO QHS [facility] Baclofen (Lioresal) 10 mg PO BID [facility] Budesonide (Pulmicort) 0.5 mg INH RESP.BID [facility] Duloxetine HCl (Cymbalta) 60 mg PO BID [facility] Ferrous Sulfate (Iron) 325 mg PO BID [facility] Fluticasone Propionate (Flonase) 1 spray NA BID [facility] Furosemide (Lasix) 20 mg PO DAILY [facility] Gabapentin (Neurontin) 300 mg PO TID [facility] Guaifenesin (Robitussin Dm) 10 ml PO Q4H PRN PRN Reason: COUGH Insulin Detemir (Levemir Flextouch) 10 unit SQ BID [facility] Isosorbide Mononitrate (Imdur) 30 mg PO DAILY [facility] Levofloxacin (Levaquin Tab) 500 mg PO Q48H [facility] Stop: 09/04/17 14:01 Levothyroxine Sodium (Synthroid) 50 mcg PO DAILYTHY [facility] Lidocaine (Lidoderm) 1 each TOP DAILY [facility] Metformin HCl (Glucophage Ir) 500 mg PO BIDWM [facility] Metoprolol Succinate (Toprol Xl) 25 mg PO DAILY [facility] Miscellaneous (Remove Patch) 1 each TD QHS [facility] Nitroglycerin (Nitrostat 0.4mg) 0.4 mg SL Q5MIN PRN PRN Reason: CHEST PAIN Ondansetron HCl (Zofran Odt) 4 mg SL Q4H PRN PRN Reason: NAUSEA Pantoprazole Sodium (Protonix) 40 mg PO DAILYAC [facility] Prednisone (Prednisone 20mg) 40 mg PO DAILYWM [facility] Venlafaxine HCl (Effexor Xr) 225 mg PO DAILY [facility] Physical Exam - Vital Signs Vital Signs: Vital Signs - Last 24 Hrs Pulse Resp Pulse Ox 08/30/17 10:46 72 18 100 - General General Appearance: Alert, Oriented x3, Cooperative, No acute distress - Head Head exam: Normal inspection Head exam detail: negative: Abrasion, Contusion - Respiratory Respiratory exam: Normal lung sounds bilaterally, Decreased breath sounds, Rhonchi, Wheezes. negative: Respiratory distress - Cardiovascular Cardiovascular Exam: Irregular rhythm Peripheral Pulses: 2+: Dorsalis Pedis (R), Dorsalis Pedis (L), 3+: Radial (R), Radial (L) - GI/Abdominal GI/Abdominal exam: Soft, Normal bowel sounds. negative: Tenderness - Neurological Neurological exam: Alert, Altered - Skin Skin exam: Dry, Other (numerous hematomas ) VTE H&P Assessment - Risk for VTE Risk for VTE: Yes Risk Level: High Risk Assessment Date: 08/30/17 Risk Assessment Time: 12:40 VTE Orders Placed or Will Be Placed: No VTE Reason for No Prophylaxis: Contraindicated (due to low platelets ) Plan - Inpatient Certification Inpatient Certification: Admit to inpatient care: Based on my medical assessment, after consideration of patient's risk factors (age, co-morbidities and patient presenting symptoms and acuity), I expect that this patient will remain in the hospital greater than or equal to two midnights and that the services needed warrant inpatient care because: Patient Risk Factors: Fall Estimated length of stay: 3 days The patient may reasonably be expected to be discharged or transferred to a hospital within 96 hours after admission to [facility]. Services needed: PT/OT Post hospital care (if known): Home care/Nursing aid I certify that my determination is in accordance with my understanding of Medicare requirements for reasonable and necessary inpatient services. 08/30/17 12:51 - Detailed Diagnosis and Plan (1) Hospital acquired PNA Current Visit: Yes Status: Acute Base Code: J18.9 - PNEUMONIA, UNSPECIFIED ORGANISM Comment: 08/30/17: - CXR describes bilateral perihilar opacities. - resume Levaquin 500mg daily. - repeat cbc w/ diff and electrolytes. (2) Chronic atrial fibrillation Current Visit: No Status: Acute Base Code: I48.2 - CHRONIC ATRIAL FIBRILLATION Comment: 08/30/17: - currently in a fib on monitor. - ekg no p waves, vent rate around 115-120. - resume home medications: beta-andi, statin. (3) Hyperkalemia Current Visit: No Status: Acute Base Code: E87.5 - HYPERKALEMIA Comment: 08/30/17: - 5.7 - albuterol treatments, kayexalate. - check BMP in the morning and can give increased dose of insulin with glucose. - cont cardiac monitoring (4) Asthma with exacerbation Current Visit: No Status: Acute Base Code: J45.901 - UNSPECIFIED ASTHMA WITH (ACUTE) EXACERBATION Comment: 08/30/17: - duonebs, albuterol Q4H - maintain sats > 92 % (5) Anxiety and depression Current Visit: No Status: Acute Base Code: F41.8 - OTHER SPECIFIED ANXIETY DISORDERS Comment: 08/30/17: - on Xanax, Cymbalta, Pamelor and Effexor. - Will resume dosing but would recommend tapering and d/c of some of these mdications based on BEERS criteria. This combination of medications are the likely cause of her gait/stance issues. (6) Diabetes mellitus type II, controlled Current Visit: No Status: Acute Base Code: E11.9 - TYPE 2 DIABETES MELLITUS WITHOUT COMPLICATIONS Comment: 08/30/17: - Resume Levemir 10 units QHS and Metformin 500mg BID, CARLOS, Statin - Accuchecks AcHs, ADA diet (7) Hypothyroid Current Visit: No Status: Acute Base Code: E03.9 - HYPOTHYROIDISM, UNSPECIFIED Comment: 08/30/17: - resume Levothyroxine 50mcg. (8) Physical deconditioning Current Visit: No Status: Acute Base Code: R53.81 - OTHER MALAISE Comment : 08/30/17: - Recent history of fall and admission to [facility]. Patient had some PT/OT while there. - Will hold PT/Ot for now until the patient is able to participate more. - Fall precuations: lower bed/alarm, anti-slip socks, ambulation with assist. (9) DVT prophylaxis Current Visit: No Status: Acute Base Code: [id number] - Comment: - holding ASA/Plavix due to low platelets. no active bleeding identified. (10) Full code status Current Visit: Yes Status: Acute Base Code: Z78.9 - OTHER SPECIFIED HEALTH STATUS Comment: 08/30/17: FULL CODE
[2017-08-30] MEDS: BENZONATATE 100 MG CAPSULE PO PRN (15:49)
[2017-08-30] MEDS: METFORMIN 500 MG TABLET PO SCH (17:02)
[2017-08-30] MEDS: GABAPENTIN 300 MG CAPSULE PO SCH ×2 (17:02→23:03)
[2017-08-30] MEDS: ACETAMINOPHEN 500 MG TABLET PO PRN (17:05)
[2017-08-30] MEDS: GUAIFENESIN/D-METH. 10 ML UDC PO PRN ×2 (17:05→23:10)
[2017-08-30] MEDS: BUDESONIDE 0.5 MG/2 ML INH SCH (19:40)
[2017-08-30] MEDS: AMITRIPTYLINE 10 MG TAB PO SCH (23:03)
[2017-08-30] MEDS: DULOXETINE HCL 30 MG CAPSULE.DR PO SCH (23:04)
[2017-08-30] MEDS: FERROUS SULFATE 325 MG TAB PO SCH (23:04)
[2017-08-30] MEDS: BACLOFEN 10 MG TABLET PO SCH (23:05)
[2017-08-30] MEDS: FLUTICASONE PROPIONATE 50MCG NASAL 16 GM BTL SCH (23:06)
[2017-08-30] MEDS: LEVEMIR FLEXTOUCH 100 UNIT/ML INSULIN PEN SQ SCH (23:08)
[2017-08-30] MEDS: ATORVASTATIN 20 MG TABLET PO SCH (23:10)
[2017-08-30] MEDS: REMOVE PATCH 1 EACH MISC TD SCH (23:12)
[2017-08-31] MEDS: ACETAMINOPHEN 500 MG TABLET PO PRN ×2 (01:22→22:30)
[2017-08-31] MEDS: BENZONATATE 100 MG CAPSULE PO PRN ×3 (02:08→22:32)
[2017-08-31] MEDS: GUAIFENESIN/D-METH. 10 ML UDC PO PRN ×3 (05:09→22:34)
[2017-08-31] MEDS: IPRATROPIUM/ALBUTEROL (0.5MG/3MG) NEB INH SCH ×5 (05:25→22:02)
[2017-08-31] MEDS: BUDESONIDE 0.5 MG/2 ML INH SCH ×2 (05:25→17:45)
[2017-08-31] MEDS: LEVOTHYROXINE SODIUM 50 MCG TABLET PO SCH (06:26)
[2017-08-31] MEDS: PANTOPRAZOLE SODIUM 40 MG TABLET PO SCH (06:26)
[2017-08-31] MEDS: METFORMIN 500 MG TABLET PO SCH ×2 (08:05→17:28)
[2017-08-31] MEDS: PREDNISONE 20 MG TAB PO SCH (08:05)
[2017-08-31 08:06] LABS: GRAN % 77.4 % (47-80); HEMATOCRIT 25.8 % (35.0-47.0); HEMOGLOBIN 7.8 gm/dl (11.6-16.0); LYMPH % 10.7 % (16-45); MEAN CELL VOLUME 89.3 fl (81-97); MEAN CORPUSCULAR HGB CONC 30.2 g/dl (32-36); MEAN PLATELET VOLUME 10.3 fl (7.4-10.4); MONO % 11.9 % (0-9); RED BLOOD COUNT 2.89 M/uL (3.80-5.40); RED CELL DISTRIBUTION WIDTH 16.7 % (11.5-14.5); WHITE BLOOD COUNT W/O DIFF 2.7 K/uL (4.2-12.2)
[2017-08-31 08:18] LABS: CREATININE 1.1 mg/dL (0.5-0.9)
[2017-08-31 08:25] LABS: MEAN CORPUSCULAR HEMOGLOBIN 26.9 pg (27-33)
[2017-08-31 08:26] LABS: PLATELET COUNT 47 K/uL (130-400)
[2017-08-31] MEDS: LEVEMIR FLEXTOUCH 100 UNIT/ML INSULIN PEN SQ SCH ×2 (09:22→22:35)
[2017-08-31] MEDS: BACLOFEN 10 MG TABLET PO SCH ×2 (09:23→22:32)
[2017-08-31] MEDS: FLUTICASONE PROPIONATE 50MCG NASAL 16 GM BTL SCH ×2 (09:23→22:33)
[2017-08-31] MEDS: ISOSORBIDE MONONITRATE 30 MG TAB.ER.24H PO SCH (09:24)
[2017-08-31] MEDS: METOPROLOL SUCC 25 MG TAB.ER PO SCH (09:24)
[2017-08-31] MEDS: FERROUS SULFATE 325 MG TAB PO SCH ×2 (09:24→22:32)
[2017-08-31] MEDS: FUROSEMIDE 20 MG TABLET PO SCH (09:24)
[2017-08-31] MEDS: VENLAFAXINE ER 75 MG CAPSULE PO SCH (09:25)
[2017-08-31] MEDS: DULOXETINE HCL 30 MG CAPSULE.DR PO SCH ×2 (09:25→22:31)
[2017-08-31] MEDS: LIDOCAINE 5% PATCH TOP SCH (09:25)
[2017-08-31] MEDS: GABAPENTIN 300 MG CAPSULE PO SCH ×3 (09:25→22:34)
[2017-08-31] MEDS: LEVOFLOXACIN 500 MG TABLET PO SCH (14:10)
--- NOTE | 2017-08-31 16:39 | Physician Progress Note ---
Subjective - Date Date of Physician Progress Note: 08/31/17 - Subjective Subjective Comment: The patient is much improved. She is sitting up in bed and coughing less than she was yesterday. She is far more alert and responsive compared to yesterday. Objective - Vital Signs Vital Signs: Vital Signs - Last 24 Hrs Temp Pulse Pulse Resp BP Pulse Ox 08/31/17 14:10 68 16 08/31/17 14:00 97.8 F 111 H 20 128/67 97 08/31/17 10:10 68 24 100 08/31/17 09:00 82 18 08/31/17 08:47 98.3 F 82 18 127/99 100 08/31/17 06:00 82 18 148/73 93 L 08/31/17 05:30 78 18 99 08/31/17 05:28 79 18 100 08/30/17 20:00 97.9 F 91 H 20 148/76 93 L 08/30/17 19:40 88 18 97 08/30/17 18:00 98.1 F 94 H 18 94/76 94 L - General General Appearance: Alert, Oriented x3, Cooperative, No acute distress - Head Head exam: Normal inspection Head exam detail: negative: Abrasion, Contusion - Respiratory Respiratory exam: Normal lung sounds bilaterally, Decreased breath sounds, Rhonchi, Wheezes. negative: Respiratory distress - Cardiovascular Cardiovascular Exam: Irregular rhythm Peripheral Pulses: 2+: Dorsalis Pedis (R), Dorsalis Pedis (L), 3+: Radial (R), Radial (L) - GI/Abdominal GI/Abdominal exam: Soft, Normal bowel sounds. negative: Tenderness - Neurological Neurological exam: Alert, Altered - Skin Skin exam: Dry, Other (numerous hematomas ) Assessment and Plan - Assessment and Plan (1) Hospital acquired PNA Current Visit: Yes Status: Acute Base Code: J18.9 - PNEUMONIA, UNSPECIFIED ORGANISM Comment: 08/31/17: - CXR describes bilateral perihilar opacities. - resume Levaquin 500mg daily. - repeat cbc w/ diff and electrolytes. (2) Chronic atrial fibrillation Current Visit: No Status: Acute Base Code: I48.2 - CHRONIC ATRIAL FIBRILLATION Comment: 08/31/17: - rate controlled A fib. - resume home medications: beta-andi, statin. - cont holding anticoagulation (3) Hyperkalemia Current Visit: No Status: Acute Base Code: E87.5 - HYPERKALEMIA Comment: 08/31/17: - 4.6 resolved - check BMP in the morning and can give increased dose of insulin with glucose. - cont cardiac monitoring (4) Asthma with exacerbation Current Visit: No Status: Acute Base Code: J45.901 - UNSPECIFIED ASTHMA WITH (ACUTE) EXACERBATION Comment: 08/30/17: - duonebs, albuterol Q4H - maintain sats > 92 % (5) Anxiety and depression Current Visit: No Status: Acute Base Code: F41.8 - OTHER SPECIFIED ANXIETY DISORDERS Comment: 08/31/17: - on Xanax, Cymbalta, Pamelor and Effexor. - Will resume dosing but would recommend tapering and d/c of some of these mdications based on BEERS criteria. This combination of medications are the likely cause of her gait/stance issues. (6) Diabetes mellitus type II, controlled Current Visit: No Status: Acute Base Code: E11.9 - TYPE 2 DIABETES MELLITUS WITHOUT COMPLICATIONS Comment: 08/31/17: - Resume Levemir 10 units QHS and Metformin 500mg BID, CARLOS, Statin - Accuchecks AcHs, ADA diet (7) Hypothyroid Current Visit: No Status: Acute Base Code: E03.9 - HYPOTHYROIDISM, UNSPECIFIED Comment: 08/31/17: - resume Levothyroxine 50mcg. (8) Physical deconditioning Current Visit: No Status: Acute Base Code: R53.81 - OTHER MALAISE Comment : 08/31/17: - Recent history of fall and admission to [facility]. Patient had some PT/OT while there. - Will hold PT/Ot for now until the patient is able to participate more. - Fall precuations: lower bed/alarm, anti-slip socks, ambulation with assist. (9) DVT prophylaxis Current Visit: No Status: Acute Base Code: [id number] - Comment: 08/31/17 - holding ASA/Plavix due to low platelets. no active bleeding identified. (10) Full code status Current Visit: Yes Status: Acute Base Code: Z78.9 - OTHER SPECIFIED HEALTH STATUS Comment: 08/31/17: FULL CODE - Disposition Disposition: D/C to swing bed in the morning to resume PT/OT Results - Labs Result Diagrams: 08/31/17 07:55 08/31/17 07:55 Labs Last 24 Hours: Laboratory Results - last 24 hr 08/30/17 08/31/17 08/31/17 17:00 07:30 07:55 WBC 2.7 L RBC 2.89 L Hgb 7.8 L Hct 25.8 L MCV 89.3 MCH 26.9 L MCHC 30.2 L RDW 16.7 H Plt Count 47 L* MPV 10.3 Gran % 77.4 Lymphocytes % 10.7 L Monocytes % 11.9 H Eosinophils % 0.0 Basophils % 0.0 Sodium Potassium Chloride Carbon Dioxide Anion Gap BUN Creatinine Estimated GFR POC Glucose 271 H 165 H Random Glucose Calcium 08/31/17 08/31/17 07:55 11:30 WBC RBC Hgb Hct MCV MCH MCHC RDW Plt Count MPV Gran % Lymphocytes % Monocytes % Eosinophils % Basophils % Sodium 144 Potassium 4.6 H Chloride 99 Carbon Dioxide 32.0 H Anion Gap 13.0 BUN 29 H Creatinine 1.1 H Estimated GFR 51 POC Glucose 183 H Random Glucose 159 H Calcium 8.1 L DVT/PE Assessment - Risk for VTE Risk for VTE: No Risk Level: High Risk Assessment Date: 08/30/17 Risk Assessment Time: 12:40 VTE Orders Placed or Will Be Placed: No VTE Reason for No Prophylaxis: Contraindicated (due to low platelets ) - Active Medicaitons Current Medications: Current Medications Acetaminophen (Tylenol 500mg Tab) 1,000 mg PO Q8H PRN PRN Reason: Pain - General Last Admin: 08/31/17 01:22 Dose: 1,000 mg Albuterol Sulfate () 2.5 mg INH Q2H PRN PRN Reason: SHORTNESS OF BREATH Albuterol/Ipratropium (Duoneb) 3 ml INH RESP.Q4H.[facility] Last Admin: 08/31/17 14:20 Dose: 3 ml Amitriptyline HCl (Elavil) 20 mg PO QHS [facility] Last Admin: 08/30/17 23:03 Dose: 20 mg Atorvastatin Calcium (Lipitor) 20 mg PO QHS [facility] Last Admin: 08/30/17 23:10 Dose: 20 mg Baclofen (Lioresal) 10 mg PO BID [facility] Last Admin: 08/31/17 09:23 Dose: 10 mg Benzonatate (Tessalon) 100 mg PO TID PRN PRN Reason: COUGH Last Admin: 08/31/17 14:10 Dose: 100 mg Budesonide (Pulmicort) 0.5 mg INH RESP.BID [facility] Last Admin: 08/31/17 05:25 Dose: 0.5 mg Duloxetine HCl (Cymbalta) 60 mg PO BID [facility] Last Admin: 08/31/17 09:25 Dose: 60 mg Ferrous Sulfate (Iron) 325 mg PO BID [facility] Last Admin: 08/31/17 09:24 Dose: 325 mg Fluticasone Propionate (Flonase) 1 spray NA BID [facility] Last Admin: 08/31/17 09:23 Dose: 1 spray Furosemide (Lasix) 20 mg PO DAILY [facility] Last Admin: 08/31/17 09:24 Dose: 20 mg Gabapentin (Neurontin) 300 mg PO TID [facility] Last Admin: 08/31/17 09:25 Dose: 300 mg Guaifenesin (Robitussin Dm) 10 ml PO Q4H PRN PRN Reason: COUGH Last Admin: 08/31/17 14:10 Dose: 10 ml Insulin Detemir (Levemir Flextouch) 10 unit SQ BID [facility] Last Admin: 08/31/17 09:22 Dose: 10 unit Isosorbide Mononitrate (Imdur) 30 mg PO DAILY [facility] Last Admin: 08/31/17 09:24 Dose: 30 mg Levofloxacin (Levaquin Tab) 500 mg PO Q48H [facility] Stop: 09/04/17 14:01 Last Admin: 08/31/17 14:10 Dose: 500 mg Levothyroxine Sodium (Synthroid) 50 mcg PO DAILYTHY [facility] Last Admin: 08/31/17 06:26 Dose: 50 mcg Lidocaine (Lidoderm) 1 each TOP DAILY [facility] Last Admin: 08/31/17 09:25 Dose: 1 each Metformin HCl (Glucophage Ir) 500 mg PO BIDWM [facility] Last Admin: 08/31/17 08:05 Dose: 500 mg Metoprolol Succinate (Toprol Xl) 25 mg PO DAILY [facility] Last Admin: 08/31/17 09:24 Dose: 25 mg Miscellaneous (Remove Patch) 1 each TD QHS [facility] Last Admin: 08/30/17 23:12 Dose: 1 each Nitroglycerin (Nitrostat 0.4mg) 0.4 mg SL Q5MIN PRN PRN Reason: CHEST PAIN Ondansetron HCl (Zofran Odt) 4 mg SL Q4H PRN PRN Reason: NAUSEA Pantoprazole Sodium (Protonix) 40 mg PO DAILYAC [facility] Last Admin: 08/31/17 06:26 Dose: 40 mg Prednisone (Prednisone 20mg) 40 mg PO DAILYWM [facility] Last Admin: 08/31/17 08:05 Dose: 40 mg Venlafaxine HCl (Effexor Xr) 225 mg PO DAILY [facility] Last Admin: 08/31/17 09:25 Dose: 225 mg AMI Plan - Labs Result Diagrams: 08/31/17 07:55 08/31/17 07:55
[2017-08-31] MEDS: ATORVASTATIN 20 MG TABLET PO SCH (22:32)
[2017-08-31] MEDS: AMITRIPTYLINE 10 MG TAB PO SCH (22:33)
[2017-08-31] MEDS: REMOVE PATCH 1 EACH MISC TD SCH (22:34)
[2017-09-01] MEDS: GUAIFENESIN/D-METH. 10 ML UDC PO PRN ×2 (03:30→18:37)
[2017-09-01] MEDS: ALBUTEROL SULFATE (0.083%) 2.5 MG/3 ML NEB INH PRN ×2 (03:43→22:56)
[2017-09-01] MEDS: IPRATROPIUM/ALBUTEROL (0.5MG/3MG) NEB INH SCH ×5 (05:15→21:48)
[2017-09-01] MEDS: BUDESONIDE 0.5 MG/2 ML INH SCH ×2 (05:15→17:53)
[2017-09-01] MEDS: BENZONATATE 100 MG CAPSULE PO PRN ×2 (05:28→15:10)
[2017-09-01] MEDS: ACETAMINOPHEN 500 MG TABLET PO PRN ×2 (05:28→15:11)
[2017-09-01] MEDS: PANTOPRAZOLE SODIUM 40 MG TABLET PO SCH (06:28)
[2017-09-01] MEDS: LEVOTHYROXINE SODIUM 50 MCG TABLET PO SCH (06:28)
--- NOTE | 2017-09-01 09:34 | Discharge Summary ---
Providers Date of admission: 08/30/17 10:23 Attending physician: PJ KEENE Primary care physician: Paras Powell Physical Exam - Vital Signs Vital Signs: Vital Signs - Last 24 Hrs Temp Pulse Pulse Resp BP BP Pulse Ox 09/01/17 06:00 114 H 20 138/94 99 09/01/17 05:17 88 20 95 09/01/17 03:44 92 H 20 08/31/17 22:03 110 H 20 99 08/31/17 20:00 98.7 F 106 H 18 121/48 95 08/31/17 18:00 97 F L 109 H 18 121/74 94 L 08/31/17 17:45 82 18 08/31/17 14:10 68 16 08/31/17 14:00 97.8 F 111 H 20 128/67 97 08/31/17 10:10 68 24 100 - General General Appearance: Alert, Oriented x3, Cooperative, No acute distress - Head Head exam: Normal inspection Head exam detail: negative: Abrasion, Contusion - Respiratory Respiratory exam: Normal lung sounds bilaterally, Decreased breath sounds, Rhonchi, Wheezes. negative: Respiratory distress - Cardiovascular Cardiovascular Exam: Irregular rhythm Peripheral Pulses: 2+: Dorsalis Pedis (R), Dorsalis Pedis (L), 3+: Radial (R), Radial (L) - GI/Abdominal GI/Abdominal exam: Soft, Normal bowel sounds. negative: Tenderness - Neurological Neurological exam: Alert, Altered - Skin Skin exam: Dry, Other (numerous hematomas ) Hospitalization - Hospitalization Admission Diagnosis: pneumonia - Problem List/Discharge Diagnosis (1) Hospital acquired PNA Current Visit: Yes Status: Acute Base Code: J18.9 - PNEUMONIA, UNSPECIFIED ORGANISM Comment: 09/01/17: - pt symptomatically improving and is awake and more responsive from yesterday. - cxr describes bilateral perihilar opacities. - resume Levaquin 500mg daily for another 5 days. (2) Chronic atrial fibrillation Current Visit: No Status: Acute Base Code: I48.2 - CHRONIC ATRIAL FIBRILLATION Comment: 09/01/17: - rate controlled A fib. - resume home medications: beta-yang, statin. - cont holding anticoagulation (3) Asthma with exacerbation Current Visit: No Status: Acute Base Code: J45.901 - UNSPECIFIED ASTHMA WITH (ACUTE) EXACERBATION Comment: 08/30/17: - duonebs, albuterol Q4H, PO Prednisone 40mg PO daily, - maintain sats > 92 % at rest/ambulation. - tessalon pearles, gaufenisin PRN for chronic cough. (4) Anxiety and depression Current Visit: No Status: Acute Base Code: F41.8 - OTHER SPECIFIED ANXIETY DISORDERS Comment: 09/01/17: - on Xanax, Cymbalta, Pamelor and Effexor. Stable (5) Diabetes mellitus type II, controlled Current Visit: No Status: Acute Base Code: E11.9 - TYPE 2 DIABETES MELLITUS WITHOUT COMPLICATIONS Comment: 09/01/17: - Resume Levemir 10 units QHS and Metformin 500mg BID, CARLOS, Statin - Accuchecks AcHs, ADA diet (6) Hypothyroid Current Visit: No Status: Acute Base Code: E03.9 - HYPOTHYROIDISM, UNSPECIFIED Comment: 08/31/17: - resume Levothyroxine 50mcg. (7) Physical deconditioning Current Visit: No Status: Acute Base Code: R53.81 - OTHER MALAISE Comment : 09/01/17: - Recent history of fall and admission to [facility]. Patient had some PT/OT while there. - PT/OT to resume once back in sub-acute rehab. - Fall precuations: lower bed/alarm, anti-slip socks, ambulation with assist. (8) DVT prophylaxis Current Visit: No Status: Acute Base Code: [id number] - Comment: 09/01/17: - resume ASA/Plavix. - will check cbc in the morning to trend plts. (9) DNR (do not resuscitate) Current Visit: Yes Status: Acute Base Code: Z66 - DO NOT RESUSCITATE Comment: 09/01/17: - code status has been addressed and the advanced directive is the patient's chart. - Do not resuscitate orders have been entered into EHR. - Disposition D/C to swing bed in the morning to resume PT/OT - Hospitalization Course Hospital Course: Mrs. Lock is a 81 y/o female with multiple co-morbidities who is admitted due to recurring pneumonia and worsening functional status. the patient was admitted to swing bed on TuesdayAugust 26 and was progressing well with physical and occupational therapy. She was discharged from [facility] after suffering a fall and was subsequently found to have pneumonia and a urinary tract infection. At discharge subacute rehab was recommended for continued strengthening and gait training. Since admission to swing bed the patient's respiratory status has declined with increasing sputum production and ronchi hear on auscultation. The patient has been receiving respiratory therapy yet still appears to have incomplete resolution of infection as noted on the most recent chest xray. She has not complained of shortness of breath or chest pain but she appears more somnolent and more difficult to arouse. The labs drawn this morning show elevated K at 5.7 and thrombocytopenia with platelets at 35K. The low platelets appear to be normal as previous labs show 40k on last visit. She has no active bleeding but is on dual antiplatelet therapy. The patient was admitted to inpatient status after noticing that she became less productive and had increasing productive cough, and wheezing. Chest xray showed interval development of bilateral perhilar opacities and the patient's platelets although chronically low dropped even further. She has been on respiratory treatments Q4H and oral steroids and antibiotics have been resumed. PT/OT were suspended due to the patient's medical concerns and are to be resumed once she is able to actively participate. Over the course of the past 48 hours she has shown marked improvement in respiratory status and is again able to ambulate using a walker. She is being discharged to complete her rehabilitation before discharge home. 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 EKG NOW Abnormal Labs: Abnormal Lab Results 08/30/17 08/31/17 08/31/17 Range/Units 17:00 07:30 07:55 WBC 2.7 L (4.2-12.2) K/uL RBC 2.89 L (3.80-5.40) M/uL Hgb 7.8 L (11.6-16.0) gm/dl Hct 25.8 L (35.0-47.0) % MCH 26.9 L (27-33) pg MCHC 30.2 L (32-36) g/dl RDW 16.7 H (11.5-14.5) % Plt Count 47 L* (130-400) K/uL Lymphocytes % 10.7 L (16-45) % Monocytes % 11.9 H (0-9) % Potassium (3.4-4.5) mmol/L Carbon Dioxide (22-29) mmol/L BUN (8-23) mg/dL Creatinine (0.5-0.9) mg/dL POC Glucose 271 H 165 H (70-110) mg/dL Random Glucose (74-109) mg/dL Calcium (8.8-10.2) mg/dL 08/31/17 08/31/17 08/31/17 Range/Units 07:55 11:30 17:15 WBC (4.2-12.2) K/uL RBC (3.80-5.40) M/uL Hgb (11.6-16.0) gm/dl Hct (35.0-47.0) % MCH (27-33) pg MCHC (32-36) g/dl RDW (11.5-14.5) % Plt Count (130-400) K/uL Lymphocytes % (16-45) % Monocytes % (0-9) % Potassium 4.6 H (3.4-4.5) mmol/L Carbon Dioxide 32.0 H (22-29) mmol/L BUN 29 H (8-23) mg/dL Creatinine 1.1 H (0.5-0.9) mg/dL POC Glucose 183 H 344 H (70-110) mg/dL Random Glucose 159 H (74-109) mg/dL Calcium 8.1 L (8.8-10.2) mg/dL Discharge Medications - Discharge Medications Home Medications: Ambulatory Orders Aspirin [Aspir-Low] 81 mg PO DAILY 01/27/17 [Last Taken Unknown] Atorvastatin Calcium [Lipitor] 20 mg PO QHS 01/27/17 [Last Taken Unknown] Clopidogrel Bisulfate [Clopidogrel] 75 mg PO DAILY 01/27/17 [Last Taken Unknown] Duloxetine HCl [Cymbalta] 60 mg PO BID 01/27/17 [Last Taken Unknown] Isosorbide Mononitrate [Imdur] 30 mg PO DAILY 01/27/17 [Last Taken Unknown] Levothyroxine Sodium 50 mcg PO QAM 01/27/17 [Last Taken Unknown] Nitroglycerin [Nitrostat] 0.4 mg SL Q5MIN PRN 01/27/17 [Last Taken Unknown] Nortriptyline HCl 20 mg PO QHS 01/27/17 [Last Taken Unknown] Omeprazole [Prilosec] 20 mg PO QAM 01/27/17 [Last Taken Unknown] Lisinopril 10 tab PO DAILY 01/29/17 [Last Taken Unknown] Venlafaxine HCl 100 mg PO BID 01/29/17 [Last Taken Unknown] Metoprolol Succinate 25 mg PO DAILY tab 07/21/17 [Last Taken Unknown] Albuterol Sulfate [Ventolin Hfa] 2 inh INH RESP.Q4H.[place] 08/20/17 [Last Taken Unknown] Baclofen 10 mg PO DAILY 08/28/17 [Last Taken Unknown] Ferrous Sulfate [Iron] 325 mg PO BID 08/28/17 [Last Taken Unknown] Fluticasone Propionate [Flonase] 1 spray EACH NARES BID 08/28/17 [Last Taken Unknown] Furosemide [Lasix] 20 mg PO DAILY 08/28/17 [Last Taken Unknown] Gabapentin [Neurontin] 300 mg PO TID 08/28/17 [Last Taken Unknown] Insulin Detemir [Levemir Flextouch] 10 unit SQ BID 08/28/17 [Last Taken Unknown] Lidocaine [Lidoderm] 1 each TP DAILY 08/28/17 [Last Taken Unknown] Metformin HCl 500 mg PO BIDWM 08/28/17 [Last Taken Unknown] Tiotropium [place] [Spiriva] 18 mcg IH DAILY 08/28/17 [Last Taken Unknown] Discharge Plan - Discharge Instructions Activity at Discharge: As Per Physical Therapy Diet at Discharge: Low Fat, Low Cholesterol Additional Instructions: Resume PT/OT Antibiotics for another 5 days. Prednisone for another 3 days. Quality Measures - Quality Measures Quality Measures: Atrial Fibrillation & Atrial Flutter: Chronic Anticoagulation Therapy, Advance Directives, Coronary Artery Disease: Antiplatelet Therapy, Documentation of Current Medications in Medical Record, Elder Maltreatment Screen and Follow-Up Plan, Heart Failure, Screening for High Blood Pressure and F/U Documented - Current Medications Quality Measure: Measure #130: Documentation of Current Medications Documentation of Current Medications: <Current Medications Documented/Reviewed> [G8427] - Blood Pressure Screening Quality Measure: Screening for High Blood Pressure and Follow-Up Documented Does Patient Have Any of the Following: Active Dx of HTN Blood Pressure Classification: Hypertensive Reading Systolic Measurement: 138 Diastolic Measurement: 94 Screening for High Blood Pressure: Patient Exclusion, Hx of HTN [G9744] - Atrial Fibrillation and Atrial Flutter Quality Measure: Atrial Fibrillation & Atrial Flutter: Chronic Anticoagulation Therapy Does Patient Have Any of the Following: No CHADS2 Risk Stratification: Prior Stroke/TIA or Systemic Embolism, Age 75 or Greater, Hypertension, Diabetes Mellitus, Heart Failure or Impaired LVSF Risk Stratification Summary: One or more high risk factors OR more than one moderate risk factor exists. [J2561] Anticoagulation Therapy: <Oral anticoagulant Prescribed> [K8315] - Coronary Artery Disease Quality Measure: Measure #6: Coronary Artery Disease (CAD) Antiplatelet Therapy: <ASA or clopidogrel prescribed> [8526F] - Heart Failure (CARLOS/ARB Therapy) Quality Measure: Heart Failure Left Ventricular Systolic Function: Unknown CARLOS Inhibitor or ARB Therapy for LVSD: Not Eligible - Heart Failure (Beta-yang Therapy) Quality Measure: Heart Failure Left Ventricular Systolic Function: Unknown Beta-Yang Therapy for LVEF < 40%: Not Eligible - Advance Directives Quality Measure: Measure #47: Care Plan Advance Directives Established: Yes Advance Directives Information Provided To Patient: No Advance Directives on File: No Living Will: No Power of Call Center Nurse: Yes Advance Care Planning: <Care Plan/Decision Maker Documented; Discussed & Documented> [6392F] - Elder Abuse Suspicion Index Screening: Elder Abuse Suspicion Index Screening Rely on people for bathing, dressing, shopping, banking, etc: No Prevented from getting food, clothes, medication, etc: No Made to feel shamed or threatened by someone: No Forced to sign papers or use money against will: No Feel afraid, touched in ways not wanted or hurt physically: No Poor eye contact, withdrawn, malnourished, cuts or bruises: No Screening Result: Negative result EASI Reference Information: Meggan SELLERS, Santa C, Vanessa D, Irish Lo.Development and validation of a tool to assist physicians identification of elder abuse: The Elder Abuse Suspicion Index (EASI ). Journal of Elder Abuse and Neglect, 2008; 20 (3): 276-300. - Elder Maltreatment Screen Quality Measures: Elder Maltreatment Screen and Follow-Up Plan Elder Maltreatment Screen: <Negative, No Follow-Up Plan Required> [O1740]
[2017-09-01] MEDS: METFORMIN 500 MG TABLET PO SCH ×2 (09:49→18:38)
[2017-09-01] MEDS: FUROSEMIDE 20 MG TABLET PO SCH (09:49)
[2017-09-01] MEDS: DULOXETINE HCL 30 MG CAPSULE.DR PO SCH ×2 (09:49→21:17)
[2017-09-01] MEDS: ISOSORBIDE MONONITRATE 30 MG TAB.ER.24H PO SCH (09:49)
[2017-09-01] MEDS: FERROUS SULFATE 325 MG TAB PO SCH ×2 (09:51→21:17)
[2017-09-01] MEDS: METOPROLOL SUCC 25 MG TAB.ER PO SCH (09:51)
[2017-09-01] MEDS: VENLAFAXINE ER 75 MG CAPSULE PO SCH (09:51)
[2017-09-01] MEDS: BACLOFEN 10 MG TABLET PO SCH ×2 (09:51→21:17)
[2017-09-01] MEDS: GABAPENTIN 300 MG CAPSULE PO SCH ×3 (09:52→21:17)
[2017-09-01] MEDS: PREDNISONE 20 MG TAB PO SCH (09:52)
[2017-09-01] MEDS: LIDOCAINE 5% PATCH TOP SCH (09:53)
[2017-09-01] MEDS: FLUTICASONE PROPIONATE 50MCG NASAL 16 GM BTL SCH ×2 (09:55→21:18)
[2017-09-01] MEDS: LEVEMIR FLEXTOUCH 100 UNIT/ML INSULIN PEN SQ SCH ×2 (09:56→21:28)
[2017-09-01] MEDS ORDERED: PREDNISONE 20 MG TAB PO ONE (13:45)
[2017-09-01] MEDS ORDERED: FUROSEMIDE 20 MG TABLET PO ONE (13:45)
[2017-09-01 15:13] LABS: BASO % 0.1 % (0-6); EOS % 0.3 % (0-6); HEMATOCRIT 28.2 % (35.0-47.0); HEMOGLOBIN 8.6 gm/dl (11.6-16.0); LYMPH % 2.2 % (16-45); MEAN CELL VOLUME 90.7 fl (81-97); MEAN CORPUSCULAR HGB CONC 30.5 g/dl (32-36); MEAN PLATELET VOLUME 10.5 fl (7.4-10.4); MONO % 3.1 % (0-9); PLATELET COUNT 61 K/uL (130-400); RED BLOOD COUNT 3.11 M/uL (3.80-5.40); RED CELL DISTRIBUTION WIDTH 17.4 % (11.5-14.5); WHITE BLOOD COUNT W/O DIFF 7.1 K/uL (4.2-12.2)
[2017-09-01 15:47] LABS: CREATININE 1.2 mg/dL (0.5-0.9)
[2017-09-01 15:48] LABS: MEAN CORPUSCULAR HEMOGLOBIN 27.6 pg (27-33)
[2017-09-01] MEDS: AMITRIPTYLINE 10 MG TAB PO SCH (21:17)
[2017-09-01] MEDS: ATORVASTATIN 20 MG TABLET PO SCH (21:17)
[2017-09-01] MEDS: REMOVE PATCH 1 EACH MISC TD SCH (21:22)
[2017-09-02] MEDS: ACETAMINOPHEN 500 MG TABLET PO PRN ×3 (00:43→20:31)
[2017-09-02] MEDS: GUAIFENESIN/D-METH. 10 ML UDC PO PRN ×3 (00:43→16:27)
[2017-09-02] MEDS: IPRATROPIUM/ALBUTEROL (0.5MG/3MG) NEB INH SCH ×7 (02:14→22:41)
[2017-09-02] MEDS: BENZONATATE 100 MG CAPSULE PO PRN ×3 (03:53→21:35)
[2017-09-02] MEDS: BUDESONIDE 0.5 MG/2 ML INH SCH ×2 (05:21→17:13)
[2017-09-02] MEDS: LEVOTHYROXINE SODIUM 50 MCG TABLET PO SCH (06:18)
[2017-09-02] MEDS: PANTOPRAZOLE SODIUM 40 MG TABLET PO SCH (06:19)
--- NOTE | 2017-09-02 07:59 | History & Physical ---
History of Present Illness - Date Date of Service for History & Physical: 09/02/17 - History of Present Illness Admitting Diagnosis: pneumonia History of Present Illness: Mrs. Lock is a 81 y/o female with multiple co-morbidities who is admitted due to recurring pneumonia and worsening functional status. the patient was admitted to swing bed on TuesdayAugust 26 and was progressing well with physical and occupational therapy. She was discharged from [facility] after suffering a fall and was subsequently found to have pneumonia and a urinary tract infection. At discharge subacute rehab was recommended for continued strengthening and gait training. Since admission to swing bed the patient's respiratory status has declined with increasing sputum production and ronchi hear on auscultation. The patient has been receiving respiratory therapy yet still appears to have incomplete resolution of infection as noted on the most recent chest xray. She has not complained of shortness of breath or chest pain but she appears more somnolent and more difficult to arouse. The labs drawn this morning show elevated K at 5.7 and thrombocytopenia with platelets at 35K. The low platelets appear to be normal as previous labs show 40k on last visit. She has no active bleeding but is on dual antiplatelet therapy. The patient was admitted to inpatient status after noticing that she became less productive and had increasing productive cough, and wheezing. Chest xray showed interval development of bilateral perhilar opacities and the patient's platelets although chronically low dropped even further. She has been on respiratory treatments Q4H and oral steroids and antibiotics have been resumed. PT/OT were suspended due to the patient's medical concerns and are to be resumed once she is able to actively participate. Over the course of the past 48 hours she has shown marked improvement in respiratory status and is again able to ambulate using a walker. She is being discharged to complete her rehabilitation before discharge home. General - Communication Preferred Language?: Japanese Digital Marketing Coordinator Required: No - Continence Bowel Pattern: Normal for Patient Bladder Pattern: Normal, Incontinent Urinary Incontinence: Urge - Nutrition Screening Poor oral intake > 1 week: Yes Unplanned weight loss in specified time frame: No Nutrition Support via tube feedings or parenteral nutrition: No Pressure Ulcer: No Significantly underweight define as BMI <18.5 kg/m2: No Albumin <2.5mg/dL: No Persistent nausea/vomiting/diarrhea >3 days: No Difficulty chewing/swallowing/mouth sores: Yes Admitting Diagnosis: No Nutrition Risk Score: High Risk Past Medical History - SOCIAL HISTORY Smoking Status: Former smoker - SURGICAL HISTORY Past Surgical History: triple cardiac bypass. hysterectomy. cholecystectomy. appendectomy. tonsillectomy. multiple cardiac stents - RESPIRATORY Hx Respiratory Disorders: Yes Hx Asthma: Yes Hx Sleep Apnea: Yes (non-compliant with CPAP) Comment:: CPAP - CARDIOVASCULAR Hx Cardio Disorders: Yes Hx Abnormal EKG: Yes Hx Cardiac Cath: Yes (14 stents) Hx CHF: Yes Hx Edema: Yes Hx Heart Attack: Yes Hx Hypertension: Yes Hx Irregular Heartbeat: Yes (afib) Hx Vascular Disease: Yes Comment:: high cholesterol - NEURO Hx Neuro Disorders: Yes Hx TIA: Yes - GI Hx GI Disorders: Yes Hx Reflux: Yes Hx Obstructive Bowel: Yes Comment:: HX bowel CA - Hx Genitourinary Disorders: Yes Hx Bladder Problem: Yes - ENDOCRINE Hx Endocrine Disorders: Yes Hx Diabetes: Yes Hx Thyroid Disease: Yes - MUSCULOSKELETAL Hx Musculoskeletal Disorders: Yes Hx Arthritis: Yes Hx Back Injury: Yes Hx Fibromyalgia: Yes Hx Musculoskeletal Disease: Yes Hx Osteoporosis: Yes (osteopenia) Comment:: diabetic neuropathy - PSYCH Hx Psych Problems: Yes Hx Anxiety: Yes Hx Depression: Yes - HEMATOLOGY/ONCOLOGY Hx Hematology/Oncology Disorders: Yes Hx Cancer: Yes (ovarian, bowel, mouth) Hx Chemotherapy: No Hx Radiation Therapy: Yes Hx Blood Transfusions: Yes Family Medical History Any Significant Family History?: Yes Hx Cancer: Father, Mother, Brother/Sister Hx Diabetes: Mother, Brother/Sister H&P Meds/Allergies - Allergies Allergies: Allergies Allergy/AdvReac Type Severity Reaction Status Date / Time allopurinol [ALLOPURINOL] Allergy Unknown SWELLING Verified 08/21/17 01:57 (GENERAL) metoclopramide HCl Allergy Unknown SWELLING Verified 08/21/17 01:57 [From REGLAN] (GENERAL) ranitidine HCl [From ZANTAC] Allergy Unknown SWELLING Verified 08/21/17 01:57 (GENERAL) Sulfa (Sulfonamide Allergy Unknown SWELLING Verified 08/21/17 01:57 Antibiotics) (GENERAL) [SULFA (SULFONAMIDE ANTIBIOTICS)] abciximab [From Reopro] Allergy RASH Verified 08/21/17 01:57 eptifibatide Allergy RASH Verified 08/21/17 01:57 [From Integrilin] NSAIDS (Non-Steroidal Allergy RASH Verified 08/21/17 01:57 Anti-Inflamma verapamil HCl [From CALAN] AdvReac Unknown NAUSEA Verified 08/21/17 01:57 - Active Medications Active Medications: Current Medications Acetaminophen (Tylenol 500mg Tab) 1,000 mg PO Q8H PRN PRN Reason: Pain - General Last Admin: 09/02/17 00:43 Dose: 1,000 mg Albuterol Sulfate () 2.5 mg INH Q2H PRN PRN Reason: SHORTNESS OF BREATH Last Admin: 09/01/17 22:56 Dose: 2.5 mg Albuterol/Ipratropium (Duoneb) 3 ml [facility]H [facility] Last Admin: 09/02/17 05:21 Dose: 3 ml Amitriptyline HCl (Elavil) 20 mg PO QHS [facility] Last Admin: 09/01/17 21:17 Dose: 20 mg Atorvastatin Calcium (Lipitor) 20 mg PO QHS [facility] Last Admin: 09/01/17 21:17 Dose: 20 mg Baclofen (Lioresal) 10 mg PO BID [facility] Last Admin: 09/01/17 21:17 Dose: 10 mg Benzonatate (Tessalon) 100 mg PO TID PRN PRN Reason: COUGH Last Admin: 09/02/17 03:53 Dose: 100 mg Budesonide (Pulmicort) 0.5 mg INH RESP.BID [facility] Last Admin: 09/02/17 05:21 Dose: 0.5 mg Duloxetine HCl (Cymbalta) 60 mg PO BID [facility] Last Admin: 09/01/17 21:17 Dose: 60 mg Ferrous Sulfate (Iron) 325 mg PO BID [facility] Last Admin: 09/01/17 21:17 Dose: 325 mg Fluticasone Propionate (Flonase) 1 spray NA BID [facility] Last Admin: 09/01/17 21:18 Dose: 1 spray Furosemide (Lasix) 20 mg PO DAILY [facility] Last Admin: 09/01/17 09:49 Dose: 20 mg Gabapentin (Neurontin) 300 mg PO TID [facility] Last Admin: 09/01/17 21:17 Dose: 300 mg Guaifenesin (Robitussin Dm) 10 ml PO Q4H PRN PRN Reason: COUGH Last Admin: 09/02/17 06:19 Dose: 10 ml Insulin Detemir (Levemir Flextouch) 10 unit SQ BID [facility] Last Admin: 09/01/17 21:28 Dose: 10 unit Isosorbide Mononitrate (Imdur) 30 mg PO DAILY [facility] Last Admin: 09/01/17 09:49 Dose: 30 mg Levofloxacin (Levaquin Tab) 500 mg PO Q48H [facility] Stop: 09/04/17 14:01 Last Admin: 08/31/17 14:10 Dose: 500 mg Levothyroxine Sodium (Synthroid) 50 mcg PO DAILYTHY [facility] Last Admin: 09/02/17 06:18 Dose: 50 mcg Lidocaine (Lidoderm) 1 each TOP DAILY [facility] Last Admin: 09/01/17 09:53 Dose: 1 each Metformin HCl (Glucophage Ir) 500 mg PO BIDWM [facility] Last Admin: 09/01/17 18:38 Dose: 500 mg Metoprolol Succinate (Toprol Xl) 25 mg PO DAILY [facility] Last Admin: 09/01/17 09:51 Dose: 25 mg Miscellaneous (Remove Patch) 1 each TD QHS [facility] Last Admin: 09/01/17 21:22 Dose: 1 each Nitroglycerin (Nitrostat 0.4mg) 0.4 mg SL Q5MIN PRN PRN Reason: CHEST PAIN Ondansetron HCl (Zofran Odt) 4 mg SL Q4H PRN PRN Reason: NAUSEA Last Admin: 09/01/17 05:31 Dose: 4 mg Pantoprazole Sodium (Protonix) 40 mg PO DAILYAC [facility] Last Admin: 09/02/17 06:19 Dose: 40 mg Prednisone (Prednisone 20mg) 40 mg PO DAILYWM [facility] Last Admin: 09/01/17 09:52 Dose: 40 mg Venlafaxine HCl (Effexor Xr) 225 mg PO DAILY [facility] Last Admin: 09/01/17 09:51 Dose: 225 mg Physical Exam - Vital Signs Vital Signs: Vital Signs - Last 24 Hrs Temp Pulse Pulse Pulse Resp BP BP 09/02/17 06:00 99.1 F 104 H 22 139/65 09/02/17 05:21 107 H 24 09/02/17 02:14 106 H 32 H 09/02/17 02:00 98.1 F 102 H 24 164/88 09/01/17 22:56 98.7 F 90 101 H 28 H 155/76 09/01/17 21:48 99 H 24 09/01/17 21:00 112 H 28 H 09/01/17 17:53 88 20 09/01/17 17:31 97.2 F L 112 H 30 H 146/63 09/01/17 13:50 97.2 F L 84 28 H 86/68 09/01/17 13:15 101 H 22 09/01/17 10:00 97.9 F 110 H 24 132/82 09/01/17 09:45 100 H 20 09/01/17 09:37 98 H 20 09/01/17 09:00 99 H 22 Pulse Ox 09/02/17 06:00 97 09/02/17 05:21 82 L 09/02/17 02:14 99 09/02/17 02:00 97 09/01/17 22:56 97 09/01/17 21:48 97 09/01/17 21:00 09/01/17 17:53 99 09/01/17 17:31 95 09/01/17 13:50 100 09/01/17 13:15 100 09/01/17 10:00 96 09/01/17 09:45 100 09/01/17 09:37 100 09/01/17 09:00 H&P Results - Labs Result Diagrams: 09/01/17 14:58 09/01/17 14:58 Labs Last 24 Hours: Laboratory Results - last 24 hr 09/01/17 09/01/17 09/01/17 14:58 14:58 14:58 WBC 7.1 RBC 3.11 L Hgb 8.6 L Hct 28.2 L MCV 90.7 MCH 27.6 MCHC 30.5 L RDW 17.4 H Plt Count 61 L MPV 10.5 H Neutrophils % 91.0 H Band Neutrophils % 1.0 Lymphocytes % 2.2 L Monocytes % 3.1 Eosinophils % 0.3 Basophils % 0.1 Lymphocytes 5.0 L Monocytes 3.0 Basophils 0.0 Eosinophil Count 0.0 Sodium 140 Potassium 5.3 H Chloride 95 L Carbon Dioxide 27.0 Anion Gap 18.0 H BUN 28 H Creatinine 1.2 H Estimated GFR 46 Random Glucose 300 H Calcium 8.0 L Troponin T Procalcitonin 0.109 09/01/17 14:58 WBC RBC Hgb Hct MCV MCH MCHC RDW Plt Count MPV Neutrophils % Band Neutrophils % Lymphocytes % Monocytes % Eosinophils % Basophils % Lymphocytes Monocytes Basophils Eosinophil Count Sodium Potassium Chloride Carbon Dioxide Anion Gap BUN Creatinine Estimated GFR Random Glucose Calcium Troponin T 0.024 H Procalcitonin Plan - Swing Bed Certification Initial Certification Due: 08/30/17 14 Day Re-Cert Due: 09/13/17 44 Day Re-Cert Due: 10/13/17 74 Day Re-Cert Due: 11/12/17 - Detailed Diagnosis and Plan (1) Physical deconditioning Current Visit: No Status: Acute Base Code: R53.81 - OTHER MALAISE Comment : 09/01/17: - Recent history of fall and admission to [facility]. Patient had some PT/OT while there. - PT/OT to resume once back in sub-acute rehab. - Fall precuations: lower bed/alarm, anti-slip socks, ambulation with assist. (2) Hospital acquired PNA Current Visit: Yes Status: Acute Base Code: J18.9 - PNEUMONIA, UNSPECIFIED ORGANISM Comment: 09/01/17: - pt symptomatically improving and is awake and more responsive from yesterday. - cxr describes bilateral perihilar opacities. - resume Levaquin 500mg daily for another 5 days. (3) Asthma with exacerbation Current Visit: No Status: Acute Base Code: J45.901 - UNSPECIFIED ASTHMA WITH (ACUTE) EXACERBATION Comment: 08/30/17: - duonebs, albuterol Q4H, PO Prednisone 40mg PO daily, - maintain sats > 92 % at rest/ambulation. - tessalon pearles, gaufenisin PRN for chronic cough. (4) Chronic atrial fibrillation Current Visit: No Status: Acute Base Code: I48.2 - CHRONIC ATRIAL FIBRILLATION Comment: 09/01/17: - rate controlled A fib. - resume home medications: beta-andi, statin. - cont holding anticoagulation (5) Anxiety and depression Current Visit: No Status: Acute Base Code: F41.8 - OTHER SPECIFIED ANXIETY DISORDERS Comment: 09/01/17: - on Xanax, Cymbalta, Pamelor and Effexor. Stable (6) Diabetes mellitus type II, controlled Current Visit: No Status: Acute Base Code: E11.9 - TYPE 2 DIABETES MELLITUS WITHOUT COMPLICATIONS Comment: 09/01/17: - Resume Levemir 10 units QHS and Metformin 500mg BID, CARLOS, Statin - Accuchecks AcHs, ADA diet (7) Hypothyroid Current Visit: No Status: Acute Base Code: E03.9 - HYPOTHYROIDISM, UNSPECIFIED Comment: 08/31/17: - resume Levothyroxine 50mcg. (8) DVT prophylaxis Current Visit: No Status: Acute Base Code: [id number] - Comment: 09/01/17: - resume ASA/Plavix. - will check cbc in the morning to trend plts. (9) DNR (do not resuscitate) Current Visit: Yes Status: Acute Base Code: Z66 - DO NOT RESUSCITATE Comment: 09/01/17: - code status has been addressed and the advanced directive is the patient's chart. - Do not resuscitate orders have been entered into EHR. - Disposition Resuming PT/OT. Dr. Resendez will be following the patient over the weekend
[2017-09-02] MEDS: PREDNISONE 20 MG TAB PO SCH (08:33)
[2017-09-02] MEDS: METFORMIN 500 MG TABLET PO SCH ×2 (08:33→17:21)
[2017-09-02] MEDS: ISOSORBIDE MONONITRATE 30 MG TAB.ER.24H PO SCH (09:22)
[2017-09-02] MEDS: DULOXETINE HCL 30 MG CAPSULE.DR PO SCH ×2 (09:22→21:35)
[2017-09-02] MEDS: METOPROLOL SUCC 25 MG TAB.ER PO SCH (09:22)
[2017-09-02] MEDS: GABAPENTIN 300 MG CAPSULE PO SCH ×3 (09:22→21:35)
[2017-09-02] MEDS: BACLOFEN 10 MG TABLET PO SCH ×2 (09:22→21:35)
[2017-09-02] MEDS: VENLAFAXINE ER 75 MG CAPSULE PO SCH (09:22)
[2017-09-02] MEDS: FERROUS SULFATE 325 MG TAB PO SCH ×2 (09:23→21:35)
[2017-09-02] MEDS: FUROSEMIDE 20 MG TABLET PO SCH (09:23)
[2017-09-02] MEDS: FLUTICASONE PROPIONATE 50MCG NASAL 16 GM BTL SCH ×2 (09:26→21:36)
[2017-09-02] MEDS: LEVEMIR FLEXTOUCH 100 UNIT/ML INSULIN PEN SQ SCH ×2 (09:27→22:08)
[2017-09-02] MEDS: LIDOCAINE 5% PATCH TOP SCH (09:33)
[2017-09-02] MEDS ORDERED: HEPARIN SODIUM FLUSH 100 UNITS/ML SYR 5ML IV ONE ×2 (12:19→17:17)
[2017-09-02] MEDS ORDERED: 0.9 % SODIUM CHLORIDE 10ML SYR IVP ONE ×2 (12:19→17:17)
[2017-09-02 12:22] LABS: BASO % 0.1 % (0-6); HEMATOCRIT 30.9 % (35.0-47.0); HEMOGLOBIN 9.1 gm/dl (11.6-16.0); LYMPH % 3.8 % (16-45); MEAN CELL VOLUME 90.4 fl (81-97); MEAN CORPUSCULAR HEMOGLOBIN 26.6 pg (27-33); MEAN CORPUSCULAR HGB CONC 29.4 g/dl (32-36); MEAN PLATELET VOLUME 10.7 fl (7.4-10.4); MONO % 8.6 % (0-9); PLATELET COUNT 62 K/uL (130-400); RED BLOOD COUNT 3.42 M/uL (3.80-5.40); RED CELL DISTRIBUTION WIDTH 17.1 % (11.5-14.5); WHITE BLOOD COUNT W/O DIFF 9.1 K/uL (4.2-12.2)
[2017-09-02 12:52] LABS: CREATININE 1.1 mg/dL (0.5-0.9)
[2017-09-02] MEDS ORDERED: METHYLPREDNISOLONE PF 125MG/VIAL IVP ONE (13:35)
[2017-09-02] MEDS: LEVOFLOXACIN 500 MG TABLET PO SCH (14:02)
[2017-09-02] MEDS ORDERED: SPS 15 GM/60 ML PO ONE (14:49)
[2017-09-02] MEDS: ALBUTEROL SULFATE (0.083%) 2.5 MG/3 ML NEB INH PRN ×2 (15:02→22:44)
[2017-09-02] MEDS ORDERED: MEROPENEM 1 GM in 0.9% SODIUM CHLORIDE 50ML 50 ML IVPB ONE (16:30)
[2017-09-02] MEDS: AMITRIPTYLINE 10 MG TAB PO SCH (21:34)
[2017-09-02] MEDS: ATORVASTATIN 20 MG TABLET PO SCH (21:35)
[2017-09-02] MEDS: REMOVE PATCH 1 EACH MISC TD SCH (22:06)
[2017-09-03] MEDS: GUAIFENESIN/D-METH. 10 ML UDC PO PRN ×2 (00:33→11:38)
[2017-09-03] MEDS: IPRATROPIUM/ALBUTEROL (0.5MG/3MG) NEB INH SCH ×6 (01:15→21:31)
[2017-09-03] MEDS: MEROPENEM 1 GM in 0.9% SODIUM CHLORIDE 50ML 50 ML IVPB SCH ×2 (05:33→17:15)
[2017-09-03] MEDS: BUDESONIDE 0.5 MG/2 ML INH SCH ×2 (05:50→17:48)
[2017-09-03] MEDS: LEVOTHYROXINE SODIUM 50 MCG TABLET PO SCH (06:06)
[2017-09-03] MEDS: PANTOPRAZOLE SODIUM 40 MG TABLET PO SCH (06:06)
[2017-09-03] MEDS ORDERED: 0.9 % SODIUM CHLORIDE 1000ML 1,000 ML IV ONE (06:22)
[2017-09-03] MEDS: PREDNISONE 20 MG TAB PO SCH (08:22)
[2017-09-03] MEDS: METFORMIN 500 MG TABLET PO SCH ×2 (08:22→17:15)
--- NOTE | 2017-09-03 09:07 | RADIOLOGY REPORT ---
EXAM: CHEST 2 VIEWS HISTORY: DIFFICULTY IN BREATHING, CHEST PAIN. TECHNIQUE: AP and lateral views. COMPARISON: Two-view chest, 08/28/17. Report of the prior study not yet available within PACS. FINDINGS: Postop changes as before. Slight progressive diffuse interstitial prominence may represent some mild progressive interstitial edema and clinical correlation is suggested. No acute alveolar infiltrate seen. No pleural effusion or pneumothorax evident. There are probably abandoned epipericardial pacer wires associated with a sternotomy. Stable heart size. Venous access port remains in place. IMPRESSION: 1. POSTOP CHANGES BEFORE INCLUDING A VENOUS ACCESS PORT, STERNOTOMY, AND ABANDONED EPIPERICARDIAL PACER WIRES. 2. STABLE CARDIOMEGALY BUT PROBABLY SOME PROGRESSIVE PULMONARY VENOUS HYPERTENSION AND CLINICAL CORRELATION TO MILD CHF SUGGESTED. JOB NUMBER: [id number] [facility]
[2017-09-03] MEDS: DULOXETINE HCL 30 MG CAPSULE.DR PO SCH ×2 (09:20→21:18)
[2017-09-03] MEDS: VENLAFAXINE ER 75 MG CAPSULE PO SCH (09:21)
[2017-09-03] MEDS: FERROUS SULFATE 325 MG TAB PO SCH ×2 (09:22→21:18)
[2017-09-03] MEDS: FUROSEMIDE 20 MG TABLET PO SCH (09:22)
[2017-09-03] MEDS: ISOSORBIDE MONONITRATE 30 MG TAB.ER.24H PO SCH (09:22)
[2017-09-03] MEDS: LIDOCAINE 5% PATCH TOP SCH (09:22)
[2017-09-03] MEDS: BACLOFEN 10 MG TABLET PO SCH ×2 (09:23→21:18)
[2017-09-03] MEDS: GABAPENTIN 300 MG CAPSULE PO SCH ×3 (09:23→21:18)
[2017-09-03] MEDS: METOPROLOL SUCC 25 MG TAB.ER PO SCH (09:23)
[2017-09-03] MEDS: LEVEMIR FLEXTOUCH 100 UNIT/ML INSULIN PEN SQ SCH ×2 (09:24→21:36)
[2017-09-03] MEDS: FLUTICASONE PROPIONATE 50MCG NASAL 16 GM BTL SCH ×2 (09:31→21:21)
[2017-09-03] MEDS ORDERED: FUROSEMIDE IV 20MG/2ML VIAL IVP ONE (10:12)
[2017-09-03] MEDS: BENZONATATE 100 MG CAPSULE PO PRN (11:39)
[2017-09-03] MEDS: ACETAMINOPHEN 500 MG TABLET PO PRN (11:40)
[2017-09-03] MEDS ORDERED: ALPRAZOLAM 0.25 MG TABLET PO PRN (12:15)
[2017-09-03] MEDS: ATORVASTATIN 20 MG TABLET PO SCH (21:18)
[2017-09-03] MEDS: AMITRIPTYLINE 10 MG TAB PO SCH (21:19)
[2017-09-03] MEDS: REMOVE PATCH 1 EACH MISC TD SCH (21:24)
[2017-09-04] MEDS: ACETAMINOPHEN 500 MG TABLET PO PRN ×3 (00:52→21:10)
[2017-09-04] MEDS: GUAIFENESIN/D-METH. 10 ML UDC PO PRN ×2 (00:53→09:55)
[2017-09-04] MEDS: IPRATROPIUM/ALBUTEROL (0.5MG/3MG) NEB INH SCH ×6 (01:05→21:40)
[2017-09-04] MEDS: MEROPENEM 1 GM in 0.9% SODIUM CHLORIDE 50ML 50 ML IVPB SCH ×2 (05:18→16:59)
[2017-09-04] MEDS: PANTOPRAZOLE SODIUM 40 MG TABLET PO SCH (06:11)
[2017-09-04] MEDS: LEVOTHYROXINE SODIUM 50 MCG TABLET PO SCH (06:11)
[2017-09-04] MEDS: BUDESONIDE 0.5 MG/2 ML INH SCH ×2 (06:23→17:55)
[2017-09-04] MEDS: LEVOFLOXACIN 500MG IVPB 500 MG/100 ML BAG IVPB SCH (08:34)
[2017-09-04] MEDS: FUROSEMIDE IV 40MG/4ML VIAL IVP ONE (08:38)
[2017-09-04] MEDS: PREDNISONE 20 MG TAB PO SCH (08:41)
[2017-09-04] MEDS: METFORMIN 500 MG TABLET PO SCH ×2 (08:42→16:53)
[2017-09-04] MEDS: DULOXETINE HCL 30 MG CAPSULE.DR PO SCH ×2 (09:53→21:10)
[2017-09-04] MEDS: 0.9 % SODIUM CHLORIDE 10ML SYR IVP PRN ×2 (09:53→17:18)
[2017-09-04] MEDS: VENLAFAXINE ER 75 MG CAPSULE PO SCH (09:54)
[2017-09-04] MEDS: GABAPENTIN 300 MG CAPSULE PO SCH ×3 (09:54→21:10)
[2017-09-04] MEDS: BACLOFEN 10 MG TABLET PO SCH ×2 (09:55→21:10)
[2017-09-04] MEDS: FERROUS SULFATE 325 MG TAB PO SCH ×2 (09:55→21:10)
[2017-09-04] MEDS: BENZONATATE 100 MG CAPSULE PO PRN (09:55)
[2017-09-04] MEDS: METOPROLOL SUCC 25 MG TAB.ER PO SCH (09:55)
[2017-09-04] MEDS: ISOSORBIDE MONONITRATE 30 MG TAB.ER.24H PO SCH (09:55)
[2017-09-04] MEDS: LIDOCAINE 5% PATCH TOP SCH (09:56)
[2017-09-04] MEDS: LEVEMIR FLEXTOUCH 100 UNIT/ML INSULIN PEN SQ SCH ×2 (09:59→21:29)
[2017-09-04] MEDS: ALPRAZOLAM 0.25 MG TABLET PO PRN (12:02)
[2017-09-04] MEDS: FLUTICASONE PROPIONATE 50MCG NASAL 16 GM BTL SCH ×2 (14:13→21:17)
[2017-09-04] MEDS: HEPARIN SODIUM FLUSH 100 UNITS/ML SYR 5ML IV PRN (17:18)
[2017-09-04] MEDS: AMITRIPTYLINE 10 MG TAB PO SCH (21:10)
[2017-09-04] MEDS: ATORVASTATIN 20 MG TABLET PO SCH (21:10)
[2017-09-04] MEDS: REMOVE PATCH 1 EACH MISC TD SCH (21:11)
[2017-09-05] MEDS: ALPRAZOLAM 0.25 MG TABLET PO PRN
[2017-09-05] MEDS: BUDESONIDE 0.5 MG/2 ML INH SCH ×2 (05:00→17:35)
[2017-09-05] MEDS: IPRATROPIUM/ALBUTEROL (0.5MG/3MG) NEB INH SCH ×5 (05:00→21:26)
[2017-09-05] MEDS: LEVOTHYROXINE SODIUM 50 MCG TABLET PO SCH (06:15)
[2017-09-05] MEDS: MEROPENEM 1 GM in 0.9% SODIUM CHLORIDE 50ML 50 ML IVPB SCH ×2 (06:15→17:05)
[2017-09-05] MEDS: PANTOPRAZOLE SODIUM 40 MG TABLET PO SCH (06:16)
[2017-09-05 06:36] LABS: BASO % 0.2 % (0-6); EOS % 0.2 % (0-6); GRAN % 78.8 % (47-80); HEMATOCRIT 28.3 % (35.0-47.0); HEMOGLOBIN 8.3 gm/dl (11.6-16.0); LYMPH % 10.1 % (16-45); MEAN CELL VOLUME 90.4 fl (81-97); MEAN CORPUSCULAR HEMOGLOBIN 26.5 pg (27-33); MEAN CORPUSCULAR HGB CONC 29.3 g/dl (32-36); MONO % 10.7 % (0-9); RED BLOOD COUNT 3.13 M/uL (3.80-5.40); RED CELL DISTRIBUTION WIDTH 16.6 % (11.5-14.5); WHITE BLOOD COUNT W/O DIFF 5.6 K/uL (4.2-12.2)
[2017-09-05 06:42] LABS: PLATELET COUNT 38 K/uL (130-400)
[2017-09-05 06:57] LABS: CREATININE 1.2 mg/dL (0.5-0.9)
[2017-09-05] MEDS: FUROSEMIDE IV 40MG/4ML VIAL IVP SCH (09:23)
[2017-09-05] MEDS: NYSTATIN 15 GM TUBE TOP PRN (09:23)
[2017-09-05] MEDS: LIDOCAINE 5% PATCH TOP SCH (09:24)
[2017-09-05] MEDS: METFORMIN 500 MG TABLET PO SCH ×2 (09:24→16:58)
[2017-09-05] MEDS: PREDNISONE 20 MG TAB PO SCH (09:24)
[2017-09-05] MEDS: BACLOFEN 10 MG TABLET PO SCH ×2 (09:24→21:14)
[2017-09-05] MEDS: METOPROLOL SUCC 25 MG TAB.ER PO SCH (09:24)
[2017-09-05] MEDS: LEVOFLOXACIN 500MG IVPB 500 MG/100 ML BAG IVPB SCH (09:24)
[2017-09-05] MEDS: DULOXETINE HCL 30 MG CAPSULE.DR PO SCH ×2 (09:25→21:14)
[2017-09-05] MEDS: HEPARIN SODIUM FLUSH 100 UNITS/ML SYR 5ML IV PRN ×2 (09:25→10:12)
[2017-09-05] MEDS: 0.9 % SODIUM CHLORIDE 10ML SYR IVP PRN ×2 (09:25→10:12)
[2017-09-05] MEDS: VENLAFAXINE ER 75 MG CAPSULE PO SCH (09:25)
[2017-09-05] MEDS: FERROUS SULFATE 325 MG TAB PO SCH ×2 (09:25→21:14)
[2017-09-05] MEDS: GABAPENTIN 300 MG CAPSULE PO SCH ×3 (09:25→21:14)
[2017-09-05] MEDS: ISOSORBIDE MONONITRATE 30 MG TAB.ER.24H PO SCH (09:26)
[2017-09-05] MEDS: LEVEMIR FLEXTOUCH 100 UNIT/ML INSULIN PEN SQ SCH ×2 (09:28→22:51)
[2017-09-05] MEDS: FLUTICASONE PROPIONATE 50MCG NASAL 16 GM BTL SCH ×2 (09:35→21:13)
[2017-09-05] MEDS ORDERED: LISINOPRIL 5 MG TABLET PO SCH (10:00)
--- NOTE | 2017-09-05 10:14 | RADIOLOGY REPORT ---
EXAM: CHEST, TWO VIEWS HISTORY: PNEUMONIA, DIFFICULTY IN BREATHING. TECHNIQUE: PA and lateral views of the chest were obtained. Comparison: Two view chest 09/01/17 FINDINGS: Cardiomegaly persists. Postop changes as before including sternotomy with abandoned epipericardial pacer wires and a venous access port on the right. There is bilateral somewhat coarse predominantly interstitial infiltrate superior and slightly more prominent than before. This may again represent CHF with some interstitial edema although coarse bilateral pneumonitis could not be excluded. Continued follow-up suggested. IMPRESSION: 1. POSTOP CHANGES BEFORE. 2. SLIGHT PROGRESSION IN COARSENED PREDOMINANT INTERSTITIAL INFILTRATE BILATERALLY, QUESTIONABLY PULMONARY EDEMA OR BILATERAL PNEUMONITIS. FOLLOW-UP FILMS SUGGESTED. JOB NUMBER: [id number] [facility]
[2017-09-05] MEDS: FUROSEMIDE IV 40MG/4ML VIAL IVP ONE (12:55)
[2017-09-05] MEDS: CARVEDILOL 3.125 MG TABLET PO SCH ×2 (13:15→21:14)
[2017-09-05] MEDS: SPIRONOLACTONE 25 MG TAB PO SCH (13:15)
[2017-09-05] MEDS: FUROSEMIDE IV 20MG/2ML VIAL IVP ONE ×2 (13:15→14:08)
[2017-09-05] MEDS ORDERED: LIDOCAINE 1% MDV (10MG/ML) 20ML VIAL SQ ONE (14:26)
[2017-09-05] MEDS ORDERED: BUMETANIDE IV 0.25 MG/ML VIAL IVP ONE (14:28)
[2017-09-05] MEDS: ATORVASTATIN 20 MG TABLET PO SCH (21:14)
[2017-09-05] MEDS: AMITRIPTYLINE 10 MG TAB PO SCH (21:14)
[2017-09-05] MEDS: REMOVE PATCH 1 EACH MISC TD SCH (21:15)
[2017-09-06] MEDS: ALPRAZOLAM 0.25 MG TABLET PO PRN (01:26)
[2017-09-06] MEDS: BUDESONIDE 0.5 MG/2 ML INH SCH ×2 (05:48→17:32)
[2017-09-06] MEDS: IPRATROPIUM/ALBUTEROL (0.5MG/3MG) NEB INH SCH ×5 (05:48→22:42)
[2017-09-06] MEDS: MEROPENEM 1 GM in 0.9% SODIUM CHLORIDE 50ML 50 ML IVPB SCH ×2 (06:57→19:22)
[2017-09-06] MEDS: LEVOTHYROXINE SODIUM 50 MCG TABLET PO SCH (06:59)
[2017-09-06] MEDS: PANTOPRAZOLE SODIUM 40 MG TABLET PO SCH (06:59)
[2017-09-06 07:08] LABS: HEMATOCRIT 28.8 % (35.0-47.0); HEMOGLOBIN 8.5 gm/dl (11.6-16.0); MEAN CELL VOLUME 90.9 fl (81-97); MEAN CORPUSCULAR HEMOGLOBIN 26.8 pg (27-33); MEAN CORPUSCULAR HGB CONC 29.5 g/dl (32-36); MEAN PLATELET VOLUME 10.8 fl (7.4-10.4); RED BLOOD COUNT 3.17 M/uL (3.80-5.40); RED CELL DISTRIBUTION WIDTH 16.4 % (11.5-14.5); WHITE BLOOD COUNT W/O DIFF 6.8 K/uL (4.2-12.2)
[2017-09-06] MEDS ORDERED: BUMETANIDE IV 0.25 MG/ML VIAL IVP ONE (07:08)
[2017-09-06 07:14] LABS: PLATELET COUNT 41 K/uL (130-400)
[2017-09-06 07:28] LABS: ALB/GLOB RATIO 1.5 (1.1-1.8); ALBUMIN 3.5 g/dL (4.0-5.0); BILIRUBIN,TOTAL 0.5 mg/dL (0.2-1.0); TOTAL PROTEIN 5.9 g/dL (6.6-8.7)
[2017-09-06 07:38] LABS: HYPOCHROMIA 1+; PLATELET ESTIMATE DECREASED (NORMAL)
[2017-09-06] MEDS ORDERED: FUROSEMIDE IV 40MG/4ML VIAL IVP SCH (08:00)
[2017-09-06] MEDS: LIDOCAINE 5% PATCH TOP SCH (09:40)
[2017-09-06] MEDS: SPIRONOLACTONE 25 MG TAB PO SCH (09:40)
[2017-09-06] MEDS: GABAPENTIN 300 MG CAPSULE PO SCH ×3 (09:40→22:55)
[2017-09-06] MEDS: DULOXETINE HCL 30 MG CAPSULE.DR PO SCH ×2 (09:40→22:55)
[2017-09-06] MEDS: BACLOFEN 10 MG TABLET PO SCH ×2 (09:41→22:56)
[2017-09-06] MEDS: METOPROLOL SUCC 25 MG TAB.ER PO SCH (09:41)
[2017-09-06] MEDS: FERROUS SULFATE 325 MG TAB PO SCH ×2 (09:41→22:56)
[2017-09-06] MEDS: VENLAFAXINE ER 75 MG CAPSULE PO SCH (09:41)
[2017-09-06] MEDS: ISOSORBIDE MONONITRATE 30 MG TAB.ER.24H PO SCH (09:42)
[2017-09-06] MEDS: METFORMIN 500 MG TABLET PO SCH ×2 (09:45→19:12)
[2017-09-06] MEDS: LEVEMIR FLEXTOUCH 100 UNIT/ML INSULIN PEN SQ SCH ×2 (09:49→22:57)
[2017-09-06] MEDS ORDERED: LISINOPRIL 10 MG TABLET PO SCH ×2 (10:00→17:50)
[2017-09-06] MEDS ORDERED: CARVEDILOL 3.125 MG TABLET PO SCH ×2 (10:00→17:50)
[2017-09-06] MEDS: LEVOFLOXACIN 500MG IVPB 500 MG/100 ML BAG IVPB SCH (10:29)
[2017-09-06] MEDS: PREDNISONE 20 MG TAB PO SCH (10:49)
[2017-09-06] MEDS: FLUTICASONE PROPIONATE 50MCG NASAL 16 GM BTL SCH ×2 (10:49→22:54)
[2017-09-06] MEDS: 0.9 % SODIUM CHLORIDE 10ML SYR IVP PRN ×2 (11:18→19:10)
[2017-09-06] MEDS: HEPARIN SODIUM FLUSH 100 UNITS/ML SYR 5ML IV PRN ×2 (11:18→19:10)
[2017-09-06] MEDS: BUMETANIDE IV 0.25 MG/ML VIAL IVP SCH (14:30)
[2017-09-06] MEDS ORDERED: ATORVASTATIN 20 MG TABLET PO SCH (17:50)
[2017-09-06] MEDS ORDERED: DIGOXIN 125 MCG TABLET PO ONE (17:51)
[2017-09-06] MEDS ORDERED: DILTIAZEM HCL 30 MG TABLET PO SCH (18:00)
--- NOTE | 2017-09-06 21:18 | Medical Records Consult ---
DATE OF CONSULTATION: 09/06/17 REFERRING PHYSICIAN: DR. PJ KEENE CONSULTING PHYSICIAN: UDAY SEALS M.D. REASON FOR CONSULTATION: NEW ONSET ATRIAL FIBRILLATION AND SHORTNESS OF BREATH. HISTORY OF PRESENT ILLNESS: Ms. Lock has been in and out of the hospital several times and it is usually for management of pneumonia. Last week, the patient was admitted to a swing-bed and then, because of deterioration of her condition, she was then admitted to inpatient. The patient has had recurrent pneumonias. She also has thrombocytopenia and a history of chronic atrial fibrillation. She also has a history of diabetes mellitus type 2, hypothyroidism , and history of asthma. ALLERGIES: THE PATIENT IS ALLERGIC TO ALLOPURINOL, METOCLOPRAMIDE, RANITIDINE, SULFA, ABCIXIMAB, EPTIFIBATIDE, AND VERAPAMIL. MEDICATIONS: She is currently on: Albuterol 2.5 mg inhalation Amitriptyline 20 mg p.o. every h.s. Atorvastatin 20 mg p.o. every h.s. Baclofen 10 mg p.o. b.i.d. Tessalon Perles 100 mg p.o. t.i.d. Pulmicort 0.5 mg inhalation Cymbalta 60 mg p.o. b.i.d. Ferrous Sulfate 325 mg p.o. b.i.d. Furosemide 20 mg p.o. daily Gabapentin 300 mg p.o. t.i.d. SOCIAL HISTORY: The patient lives with her family but is a poor historian and no family member is available at this time. REVIEW OF SYSTEMS: Unobtainable. PHYSICAL EXAMINATION: GENERAL: Ms. Lock is a 81-year-old obese female who is sitting up in bed and is alert and oriented x3. She can talk, however, cannot vocalize words very well. She is cooperative throughout the exam. CVS: On CVS examination, she has irregularly regular heart rhythm and also has + 1 bilateral pedal edema. RESPIRATORY: Respiratory examination reveals bilateral wheezing and scattered crackles. NEUROLOGIC: Neurologic examination is nonfocal. LABORATORY DATA: Shows a white count of 2.7. Hemoglobin 7.8. Platelet count 47. Sodium 135. Potassium 4.2. Chloride is 90. CO2 39. BUN 34. Creatinine 1.0. Estimated GFR 57. AST 43. ALT 99. Albumin 3.5. CHEST X-RAY: Performed yesterday was reported to have progression in the interstitial infiltrates bilaterally and findings were considered to be either due to pulmonary edema or bilateral pneumonitis. Telemonitor shows the patient to be in atrial fibrillation with rapid ventricular response in the 130's to 140's range. ASSESSMENT AND PLAN: 1. CHRONIC ATRIAL FIBRILLATION WITH RAPID VENTRICULAR RESPONSE. 2. DIASTOLIC HEART FAILURE. 3. HOSPITAL-ACQUIRED PNEUMONIA. 4. ANEMIA. 5. THROMBOCYTOPENIA. 6. DECONDITIONING. Ms. Lock has chronic atrial fibrillation and was on two Beta-blockers including Toprol and Carvedilol. In spite of that, her heart rate was not very well controlled. Because of her reactive airway disease component, I am going to discontinue the Carvedilol and keep her on Toprol and I am also adding Diltiazem 180 mg p.o. daily for better rate control. I will also consider adding Digoxin for rate control as well. The patient is not a candidate for anticoagulation, given her thrombocytopenia as well as anemia. For the diastolic heart failure, I agree with continuing her on the aggressive diuresis, however, we need to watch her renal function closely and, if the GFR starts worsening, we will back off on the diuretics. She should continue fluid and sodium restriction to 2 liters and 2 gm per day, respectively. The patient is being treated for her hospital-acquired pneumonia. Given her multiple comorbidities, her age, as well as pulmonary status, she has a guarded prognosis. The patient is in diastolic heart failure because of her atrial fibrillation with rapid ventricular response. The patient is currently DNR. The family and the patient are also contemplating Hospice care as well. I will defer that to the Primary Team. To be able to add the Diltiazem, I would discontinue the Lisinopril as well as discontinuing the Carvedilol and will continue her on Toprol as well as the Diltiazem 180 mg daily as well as Digoxin. We will follow her with you. Thank you very much. JOB NUMBER: [id number]
[2017-09-06] MEDS: AMITRIPTYLINE 10 MG TAB PO SCH (22:55)
[2017-09-06] MEDS: REMOVE PATCH 1 EACH MISC TD SCH (22:57)
[2017-09-07] MEDS: IPRATROPIUM/ALBUTEROL (0.5MG/3MG) NEB INH SCH ×6 (02:24→22:23)
[2017-09-07] MEDS: BUDESONIDE 0.5 MG/2 ML INH SCH ×2 (06:20→18:27)
[2017-09-07] MEDS: MEROPENEM 1 GM in 0.9% SODIUM CHLORIDE 50ML 50 ML IVPB SCH ×2 (06:37→17:53)
[2017-09-07] MEDS: LEVOTHYROXINE SODIUM 50 MCG TABLET PO SCH (06:37)
[2017-09-07] MEDS: PANTOPRAZOLE SODIUM 40 MG TABLET PO SCH (06:37)
[2017-09-07 07:14] LABS: CREATININE 1.3 mg/dL (0.5-0.9)
[2017-09-07] MEDS: METFORMIN 500 MG TABLET PO SCH ×2 (08:19→17:07)
[2017-09-07] MEDS: BUMETANIDE IV 0.25 MG/ML VIAL IVP SCH (08:19)
[2017-09-07] MEDS: LEVOFLOXACIN 500MG IVPB 500 MG/100 ML BAG IVPB SCH (08:20)
[2017-09-07] MEDS: PREDNISONE 20 MG TAB PO SCH (08:20)
[2017-09-07] MEDS: DULOXETINE HCL 30 MG CAPSULE.DR PO SCH ×2 (09:38→22:12)
[2017-09-07] MEDS: SPIRONOLACTONE 25 MG TAB PO SCH (09:38)
[2017-09-07] MEDS: DILTIAZEM 180MG CR CAPSULE PO SCH (09:38)
[2017-09-07] MEDS: VENLAFAXINE ER 75 MG CAPSULE PO SCH (09:39)
[2017-09-07] MEDS: ISOSORBIDE MONONITRATE 30 MG TAB.ER.24H PO SCH (09:40)
[2017-09-07] MEDS: FLUTICASONE PROPIONATE 50MCG NASAL 16 GM BTL SCH ×2 (09:40→22:13)
[2017-09-07] MEDS: LEVEMIR FLEXTOUCH 100 UNIT/ML INSULIN PEN SQ SCH ×2 (09:41→22:51)
[2017-09-07] MEDS: DIGOXIN 125 MCG TABLET PO SCH (09:41)
[2017-09-07] MEDS: FERROUS SULFATE 325 MG TAB PO SCH ×2 (09:41→22:13)
[2017-09-07] MEDS: BACLOFEN 10 MG TABLET PO SCH ×2 (09:42→22:12)
[2017-09-07] MEDS: LIDOCAINE 5% PATCH TOP SCH (09:42)
[2017-09-07] MEDS: METOPROLOL SUCC 25 MG TAB.ER PO SCH (09:43)
[2017-09-07] MEDS: GABAPENTIN 300 MG CAPSULE PO SCH ×3 (09:43→22:25)
[2017-09-07] MEDS: NYSTATIN 100,000 UNITS/ML 5ML CUP PO SCH ×4 (11:13→22:25)
[2017-09-07] MEDS: ACETAMINOPHEN 500 MG TABLET PO PRN (15:53)
[2017-09-07] MEDS: AMITRIPTYLINE 10 MG TAB PO SCH (22:13)
[2017-09-07] MEDS: NYSTATIN 15 GM TUBE TOP PRN (22:14)
[2017-09-07] MEDS: REMOVE PATCH 1 EACH MISC TD SCH (23:50)
[2017-09-08] MEDS: MEROPENEM 1 GM in 0.9% SODIUM CHLORIDE 50ML 50 ML IVPB SCH ×2 (05:03→17:59)
[2017-09-08] MEDS: IPRATROPIUM/ALBUTEROL (0.5MG/3MG) NEB INH SCH ×5 (05:52→21:37)
[2017-09-08] MEDS: BUDESONIDE 0.5 MG/2 ML INH SCH ×2 (05:52→20:08)
[2017-09-08] MEDS: LEVOTHYROXINE SODIUM 50 MCG TABLET PO SCH (06:24)
[2017-09-08] MEDS: PANTOPRAZOLE SODIUM 40 MG TABLET PO SCH (06:24)
[2017-09-08 07:05] LABS: CREATININE 1.2 mg/dL (0.5-0.9)
[2017-09-08] MEDS: METFORMIN 500 MG TABLET PO SCH ×2 (08:14→16:43)
[2017-09-08] MEDS: PREDNISONE 20 MG TAB PO SCH (08:15)
[2017-09-08] MEDS: LEVOFLOXACIN 500MG IVPB 500 MG/100 ML BAG IVPB SCH (08:21)
[2017-09-08] MEDS: DULOXETINE HCL 30 MG CAPSULE.DR PO SCH ×2 (09:43→22:22)
[2017-09-08] MEDS: SPIRONOLACTONE 25 MG TAB PO SCH (09:43)
[2017-09-08] MEDS: DILTIAZEM 180MG CR CAPSULE PO SCH (09:43)
[2017-09-08] MEDS: VENLAFAXINE ER 75 MG CAPSULE PO SCH (09:46)
[2017-09-08] MEDS: FLUTICASONE PROPIONATE 50MCG NASAL 16 GM BTL SCH ×2 (09:48→22:32)
[2017-09-08] MEDS: ISOSORBIDE MONONITRATE 30 MG TAB.ER.24H PO SCH (09:49)
[2017-09-08] MEDS: LEVEMIR FLEXTOUCH 100 UNIT/ML INSULIN PEN SQ SCH ×2 (09:49→22:34)
[2017-09-08] MEDS: FERROUS SULFATE 325 MG TAB PO SCH ×2 (09:49→22:23)
[2017-09-08] MEDS: BACLOFEN 10 MG TABLET PO SCH ×2 (09:53→22:22)
[2017-09-08] MEDS: METOPROLOL SUCC 25 MG TAB.ER PO SCH (09:53)
[2017-09-08] MEDS: GABAPENTIN 300 MG CAPSULE PO SCH ×3 (09:53→22:22)
[2017-09-08] MEDS: LIDOCAINE 5% PATCH TOP SCH (09:53)
[2017-09-08] MEDS: NYSTATIN 100,000 UNITS/ML 5ML CUP PO SCH ×4 (09:54→22:21)
[2017-09-08] MEDS: DIGOXIN 125 MCG TABLET PO SCH (09:55)
[2017-09-08] MEDS ORDERED: BUMETANIDE IV 0.25 MG/ML VIAL IVP SCH (10:00)
[2017-09-08] MEDS: ALPRAZOLAM 0.25 MG TABLET PO PRN (13:04)
--- NOTE | 2017-09-08 17:30 | Discharge Note ---
VTE H&P Assessment - Risk for VTE Risk for VTE: No Risk Level: High Risk Assessment Date: 08/30/17 Risk Assessment Time: 12:40 VTE Orders Placed or Will Be Placed: No VTE Reason for No Prophylaxis: Contraindicated (due to low platelets ), Not Indicated (thrombocytopenia) Discharge Medications - Discharge Medications Prescriptions: Amitriptyline HCl [Elavil] 20 mg PO QHS #30 tab Nitroglycerin 0.4MG [Nitrostat 0.4MG] 0.4 mg SL Q5MIN PRN #1 bottle PRN Reason: Chest Pain Alprazolam [Xanax] 0.25 mg PO Q12HR PRN #30 tablet PRN Reason: Anxiety Baclofen [Lioresal] 10 mg PO BID #60 tab Budesonide [Pulmicort] 0.5 mg INH RESP.BID #60 ml Bumetanide [Bumex] 2 mg PO DAILY #60 tablet Digoxin [Lanoxin] 125 mcg PO MoTuWeThFr #30 tablet Diltiazem HCl [Cardizem Cd] 180 mg PO DAILY #30 cap Duloxetine HCl [Cymbalta] 60 mg PO BID #60 capsule.dr Ferrous Sulfate [Iron] 325 mg PO BID #60 tablet Fluticasone Propionate [Flonase] 1 spray NA BID #1 btl Gabapentin [Neurontin] 300 mg PO TID #90 capsule Hydrocodone/APAP 5/325Mg [[place] 5Mg/325Mg] 1 each PO Q4H #14 tab Insulin Detemir [Levemir Flextouch] 10 unit SQ BID #1 syringe Ipratropium/Albuterol [Duoneb] 3 ml INH RESP.Q4H.WA #120 ampul.neb Isosorbide Mononitrate [Imdur] 30 mg PO DAILY #30 tab.er.24h Levothyroxine Sodium [Synthroid] 50 mcg PO DAILYTHY #30 tablet Lidocaine Patch [Lidoderm] 1 each TOP DAILY #14 patch Metformin HCl [Glucophage Ir] 500 mg PO BIDWM #60 tablet Metoprolol Succinate [Toprol Xl] 25 mg PO DAILY #30 tab.er.24h Nystatin 15 gm TOP BID PRN #30 gm PRN Reason: yeast Ondansetron [Zofran Odt] 4 mg SL Q4H PRN #30 tab.rapdis PRN Reason: Nausea Pantoprazole Sodium [Protonix] 40 mg PO DAILYAC #30 tablet. Prednisone [Prednisone 10Mg] 10 mg PO DAILYWM #3 tab Spironolactone [Aldactone] 25 mg PO DAILY #30 tablet Home Medications: Ambulatory Orders Aspirin [Aspir-Low] 81 mg PO DAILY 01/27/17 [Last Taken Unknown] Atorvastatin Calcium [Lipitor] 20 mg PO QHS 01/27/17 [Last Taken Unknown] Clopidogrel Bisulfate [Clopidogrel] 75 mg PO DAILY 01/27/17 [Last Taken Unknown] Duloxetine HCl [Cymbalta] 60 mg PO BID 01/27/17 [Last Taken Unknown] Isosorbide Mononitrate [Imdur] 30 mg PO DAILY 01/27/17 [Last Taken Unknown] Levothyroxine Sodium 50 mcg PO QAM 01/27/17 [Last Taken Unknown] Nitroglycerin [Nitrostat] 0.4 mg SL Q5MIN PRN 01/27/17 [Last Taken Unknown] Nortriptyline HCl 20 mg PO QHS 01/27/17 [Last Taken Unknown] Omeprazole [Prilosec] 20 mg PO QAM 01/27/17 [Last Taken Unknown] Lisinopril 10 tab PO DAILY 01/29/17 [Last Taken Unknown] Metoprolol Succinate 25 mg PO DAILY tab 07/21/17 [Last Taken Unknown] Albuterol Sulfate [Ventolin Hfa] 2 inh INH RESP.Q4H.WA 08/20/17 [Last Taken Unknown] Baclofen 10 mg PO DAILY 08/28/17 [Last Taken Unknown] Ferrous Sulfate [Iron] 325 mg PO BID 08/28/17 [Last Taken Unknown] Fluticasone Propionate [Flonase] 1 spray EACH NARES BID 08/28/17 [Last Taken Unknown] Furosemide [Lasix] 20 mg PO DAILY 08/28/17 [Last Taken Unknown] Gabapentin [Neurontin] 300 mg PO TID 08/28/17 [Last Taken Unknown] Insulin Detemir [Levemir Flextouch] 10 unit SQ BID 08/28/17 [Last Taken Unknown] Lidocaine [Lidoderm] 1 each TP DAILY 08/28/17 [Last Taken Unknown] Metformin HCl 500 mg PO BIDWM 08/28/17 [Last Taken Unknown] Tiotropium [place] [Spiriva] 18 mcg IH DAILY 08/28/17 [Last Taken Unknown] Acetaminophen [Tylenol 500Mg Tab] 1,000 mg PO Q8H PRN tablet 09/08/17 [Last Taken Unknown] Alprazolam [Xanax] 0.25 mg PO Q12HR PRN #30 tablet 09/08/17 [Last Taken Unknown] Amitriptyline HCl [Elavil] 20 mg PO QHS #30 tab 09/08/17 [Last Taken Unknown] Baclofen [Lioresal] 10 mg PO BID #60 tab 09/08/17 [Last Taken Unknown] Budesonide [Pulmicort] 0.5 mg INH RESP.BID #60 ml 09/08/17 [Last Taken Unknown] Bumetanide [Bumex] 2 mg PO DAILY #60 tablet 09/08/17 [Last Taken Unknown] Digoxin [Lanoxin] 125 mcg PO MoTuWeThFr #30 tablet 09/08/17 [Last Taken Unknown] Diltiazem HCl [Cardizem Cd] 180 mg PO DAILY #30 cap 09/08/17 [Last Taken Unknown ] Duloxetine HCl [Cymbalta] 60 mg PO BID #60 capsule. 09/08/17 [Last Taken Unknown] Ferrous Sulfate [Iron] 325 mg PO BID #60 tablet 09/08/17 [Last Taken Unknown] Fluticasone Propionate [Flonase] 1 spray NA BID #1 btl 09/08/17 [Last Taken Unknown] Gabapentin [Neurontin] 300 mg PO TID #90 capsule 09/08/17 [Last Taken Unknown] Insulin Detemir [Levemir Flextouch] 10 unit SQ BID #1 syringe 09/08/17 [Last Taken Unknown] Ipratropium/Albuterol [Duoneb] 3 ml INH RESP.Q4H.WA #120 ampul.neb 09/08/17 [ Last Taken Unknown] Isosorbide Mononitrate [Imdur] 30 mg PO DAILY #30 tab.er.24h 09/08/17 [Last Taken Unknown] Levothyroxine Sodium [Synthroid] 50 mcg PO DAILYTHY #30 tablet 09/08/17 [Last Taken Unknown] Lidocaine Patch [Lidoderm] 1 each TOP DAILY #14 patch 09/08/17 [Last Taken Unknown] Metformin HCl [Glucophage Ir] 500 mg PO BIDWM #60 tablet 09/08/17 [Last Taken Unknown] Metoprolol Succinate [Toprol Xl] 25 mg PO DAILY #30 tab.er.24h 09/08/17 [Last Taken Unknown] Nitroglycerin 0.4MG [Nitrostat 0.4MG] 0.4 mg SL Q5MIN PRN #1 bottle 09/08/17 [ Last Taken Unknown] Nystatin 15 gm TOP BID PRN #30 gm 09/08/17 [Last Taken Unknown] Ondansetron [Zofran Odt] 4 mg SL Q4H PRN #30 tab.rapdis 09/08/17 [Last Taken Unknown] Pantoprazole Sodium [Protonix] 40 mg PO DAILYAC #30 tablet. 09/08/17 [Last Taken Unknown] Prednisone [Prednisone 10Mg] 10 mg PO DAILYWM #3 tab 09/08/17 [Last Taken Unknown] Spironolactone [Aldactone] 25 mg PO DAILY #30 tablet 09/08/17 [Last Taken Unknown] Hydrocodone/APAP 5/325Mg [[place] 5Mg/325Mg] 1 each PO Q4H #14 tab 09/09/17 [Last Taken Unknown] Discharge Note - Date Date of Discharge Note: 09/09/17 Disposition: Hospice; pt to live @facility Condition: (4) Poor Additional Instructions: Patient going into hospise care. Prednisone for another 3 days. Prescriptions: Amitriptyline HCl [Elavil] 20 mg PO QHS #30 tab Nitroglycerin 0.4MG [Nitrostat 0.4MG] 0.4 mg SL Q5MIN PRN #1 bottle PRN Reason: Chest Pain Alprazolam [Xanax] 0.25 mg PO Q12HR PRN #30 tablet PRN Reason: Anxiety Baclofen [Lioresal] 10 mg PO BID #60 tab Budesonide [Pulmicort] 0.5 mg INH RESP.BID #60 ml Bumetanide [Bumex] 2 mg PO DAILY #60 tablet Digoxin [Lanoxin] 125 mcg PO MoTuWeThFr #30 tablet Diltiazem HCl [Cardizem Cd] 180 mg PO DAILY #30 cap Duloxetine HCl [Cymbalta] 60 mg PO BID #60 capsule. Ferrous Sulfate [Iron] 325 mg PO BID #60 tablet Fluticasone Propionate [Flonase] 1 spray NA BID #1 btl Gabapentin [Neurontin] 300 mg PO TID #90 capsule Insulin Detemir [Levemir Flextouch] 10 unit SQ BID #1 syringe Ipratropium/Albuterol [Duoneb] 3 ml INH RESP.Q4H.WA #120 ampul.neb Isosorbide Mononitrate [Imdur] 30 mg PO DAILY #30 tab.er.24h Levothyroxine Sodium [Synthroid] 50 mcg PO DAILYTHY #30 tablet Lidocaine Patch [Lidoderm] 1 each TOP DAILY #14 patch Metformin HCl [Glucophage Ir] 500 mg PO BIDWM #60 tablet Metoprolol Succinate [Toprol Xl] 25 mg PO DAILY #30 tab.er.24h Nystatin 15 gm TOP BID PRN #30 gm PRN Reason: yeast Ondansetron [Zofran Odt] 4 mg SL Q4H PRN #30 tab.rapdis PRN Reason: Nausea Pantoprazole Sodium [Protonix] 40 mg PO DAILYAC #30 tablet. Prednisone [Prednisone 10Mg] 10 mg PO DAILYWM #3 tab Spironolactone [Aldactone] 25 mg PO DAILY #30 tablet Referrals: Paras Powell M.D., F.A.C.P. [Primary Care Provider] -
[2017-09-08] MEDS: AMITRIPTYLINE 10 MG TAB PO SCH (22:22)
[2017-09-08] MEDS: REMOVE PATCH 1 EACH MISC TD SCH (22:35)
[2017-09-09] MEDS: MEROPENEM 1 GM in 0.9% SODIUM CHLORIDE 50ML 50 ML IVPB SCH (05:04)
[2017-09-09] MEDS: BUDESONIDE 0.5 MG/2 ML INH SCH (05:40)
[2017-09-09] MEDS: IPRATROPIUM/ALBUTEROL (0.5MG/3MG) NEB INH SCH ×3 (05:40→14:58)
[2017-09-09] MEDS: LEVOTHYROXINE SODIUM 50 MCG TABLET PO SCH (06:22)
[2017-09-09] MEDS: PANTOPRAZOLE SODIUM 40 MG TABLET PO SCH (06:22)
[2017-09-09 06:59] LABS: CREATININE 1.1 mg/dL (0.5-0.9)
[2017-09-09] MEDS ORDERED: PREDNISONE 10 MG TAB PO SCH (08:00)
--- NOTE | 2017-09-09 08:23 | Occupational Therapy Tx Note ---
Occupational Therapy Tx Note - Treatment Note Occupational Therapy Treatment Note: Detail (Per nursing staff pt. is on hold at this time for therapy. Will continue to monitor.)
[2017-09-09] MEDS ORDERED: BUMETANIDE 1 MG TABLET PO SCH (10:00)
[2017-09-09] MEDS: DULOXETINE HCL 30 MG CAPSULE.DR PO SCH (11:20)
[2017-09-09] MEDS: DIGOXIN 125 MCG TABLET PO SCH (11:21)
[2017-09-09] MEDS: DILTIAZEM 180MG CR CAPSULE PO SCH (11:21)
[2017-09-09] MEDS: GABAPENTIN 300 MG CAPSULE PO SCH ×2 (11:22→16:25)
[2017-09-09] MEDS: METFORMIN 500 MG TABLET PO SCH (11:22)
[2017-09-09] MEDS: FERROUS SULFATE 325 MG TAB PO SCH (11:23)
[2017-09-09] MEDS: ISOSORBIDE MONONITRATE 30 MG TAB.ER.24H PO SCH (11:23)
[2017-09-09] MEDS: METOPROLOL SUCC 25 MG TAB.ER PO SCH (11:23)
[2017-09-09] MEDS: BACLOFEN 10 MG TABLET PO SCH (11:30)
[2017-09-09] MEDS: LIDOCAINE 5% PATCH TOP SCH (11:30)
[2017-09-09] MEDS: VENLAFAXINE ER 75 MG CAPSULE PO SCH (11:36)
[2017-09-09] MEDS: SPIRONOLACTONE 25 MG TAB PO SCH (11:36)
[2017-09-09] MEDS: LEVOFLOXACIN 500MG IVPB 500 MG/100 ML BAG IVPB SCH (11:41)
--- NOTE | 2017-09-09 14:11 | Discharge Summary ---
PLANNED DATE OF DISCHARGE: 09/09/2017 DISCHARGE DIAGNOSES: 1. Bilateral pneumonia. 2. Diastolic heart failure. 3. Respiratory failure. 4. Coronary artery disease. 5. Diabetes mellitus type 2. 6. Atrial fibrillation, rate controlled. 7. Hypertension. 8. Pulmonary hypertension. 9. Confusion, hallucinations secondary to all of the above. 10. The patient is going into hospice care and is a do not resuscitate. 11. Status post thrush. ATTENDING PHYSICIAN: Arie Resendez DO REASON FOR HOSPITALIZATION: This 81-year-old female has had a long hospital history course since about 08/21/2017. She fell down, went into the emergency department at [facility]. She was weak, found to have an infiltrate in her lungs and a urinary tract infection. Diagnosed with pneumonia and urinary tract infection, confusion, difficulty with weakness and unable to ambulate. She was transferred to [facility] for admission with a community-acquired pneumonia. She was given antibiotics and started to improve. However, she was not strong enough to go home. She was sent to [facility] for rehab in a swing bed program. She started to deteriorate 3-4 days after arrival to the swing bed program and then was moved into our acute care hospital with a diagnosis of bilateral pneumonia, atrial fibrillation, congestive heart failure, and she was started to diurese. Initially the Lasix was failing. She was switched over to Bumex and started to diurese, was starting to improve. Mental status improved. Cardiology was consulted. An echocardiogram showing diastolic heart failure; however, ejection fraction was in the 50% range. She also had bilateral worsening of her infiltrates in her lungs with pulmonary edema and pneumonia. She was treated for a hospital-acquired pneumonia with meropenem and Levaquin. GI was consulted for possible problems with swallowing and he reviewed the charts at [facility] where she had a video swallow test done. No obstructions were seen. He said possibly an esophagram but she was too sick to do any procedures. He was concerned she would . Dr. Sapp. He even felt that the esophagram might be too hard on her at this point. SIGNIFICANT FINDINGS: As stated, chest x-ray showing worsening bilateral infiltrates. Echocardiogram was done showing diastolic heart failure and pulmonary hypertension. She requires oxygen to keep her pulse ox up. Recent lab showing BUN 33, creatinine 1.2, potassium 4.7. Her brain natriuretic peptide was 19,060. Her last CBC with white count 6800, hemoglobin 8.5, segs 77, lymphs 11, platelet count is chronically decreased and is 41,000. THERAPY PROVIDED: The patient was given 2 antibiotics. She was given diuretics excessively with Bumex 2 mg twice a day. Her medications initially, she was increased up with her carvedilol, metoprolol, and lisinopril. Cardiology felt because her heart rate was in control with the atrial fibrillation she would do better. They switched her medications to digoxin Tuesday through Tuesday, off on the weekend. Cardizem 180 mg once a day. Continue metoprolol 25 mg a day. Not anticoagulating because of her thrombocytopenia. The patient seemed to be improving but then started to deteriorate again. At this point, a discussion with the daughter and we had done everything that can be done at this point medically and the patient is continuing to deteriorate. The daughter has opted to go to hospice care which is a reasonable decision. At this point, we will set up hospice care. The patient is dying from her diastolic heart failure, pneumonia, pulmonary and respiratory failure. HOSPITAL COURSE: Very guarded and continually worsening. CONDITION ON DISCHARGE: Grave and on a course to dying. She is going into hospice care. The family has now opted to go to an institutional hospice care rather than to home hospice care. DISCHARGE MEDICATION: 1. Tylenol 1000 mg q.8 h. p.r.n. 2. DuoNeb treatments q.4 h. p.r.n. while awake. 3. Neurontin 300 mg t.i.d. 4. Glucophage 500 mg b.i.d. 5. Pulmicort 0.5 mg b.i.d. 6. Cymbalta 60 mg b.i.d. 7. Elavil 20 mg q.h.s. 8. Flonase nasal spray 1 spray in each nostril b.i.d. 9. Iron 325 b.i.d. 10. Levemir 10 units b.i.d. 11. Lioresal (baclofen) 10 mg b.i.d. 12. Lidoderm patches 1 on for 12 hours, off for 12 hours in her back area where she is painful. 13. Protonix 40 mg daily. 14. Synthroid 50 mcg daily. 15. Effexor XR 225 daily. 16. Imdur 30 mg daily. 17. Toprol-XL 25 mg daily. 18. Xanax 0.25 q.12 h. p.r.n. 19. Nystatin topical p.r.n. b.i.d. under the breast. 20. Aldactone 25 mg daily. 21. Cardizem CD 180 mg daily. 22. Lanoxin 0.125 mg Tuesday through Tuesday, not on Tuesday or Tuesday. 23. Bumex 2 mg daily. 24. Prednisone 10 mg a day for 3 days and can stop that. MTDD
--- NOTE | 2017-09-09 14:20 | Medical Records Consult ---
REASON FOR CONSULTATION: Dysphagia. HISTORY OF PRESENT ILLNESS: The patient is a 81-year-old woman who was admitted with pneumonia and worsening functional status. She had previously been treated for pneumonia and was noted to have gait irregularity and weakness and was subsequently admitted to a swing bed for rehab and now is admitted because of worsening breathing issues. She apparently has dysphagia which has progressed. She had a video swallowing evaluation both at [facility] and had another evaluation here at [facility]. The speech therapy evaluation demonstrated suspected mild oropharyngeal dysphagia marked by decreased mastication and oral clearance of soft solids and hard solids. There were no signs or symptoms of aspiration during the course of the p.o. trials. It was suggested she stay upright for all oral intake, eat slowly, small bites, alternate solids and liquids. Subsequently, repeat evaluation performed at [facility] demonstrated pharyngeal dysphagia with possible esophageal dysphagia. It was felt that a GI evaluation would be helpful. She states that this has been a progressive issue. She did have an upper endoscopy performed by [facility] a number of years ago which revealed no evidence of any significant esophageal pathology. She currently is being treated for not only pneumonia but worsening congestive heart failure. PAST MEDICAL HISTORY: Asthma, sleep apnea, former smoker, AFib, coronary artery disease, hypercholesterolemia, TIA, GERD, history of colon cancer, urinary tract infection, diabetes, osteopenia, diabetic neuropathy, fibromyalgia, depression, anxiety. FAMILY HISTORY: Cancer in father, mother, brother, and sister. Diabetes in mother, brother, and sister. ALLERGIES: ALLOPURINOL, RANITIDINE, METOCLOPRAMIDE, SULFA, REOPRO, INTEGRILIN, NONSTEROIDALS, CALAN. HOME MEDICATIONS: 1. Acetaminophen. 2. Albuterol. 3. Amitriptyline. 4. Atorvastatin. 5. Baclofen. 6. Tessalon Perles. 7. Pulmicort. 8. Cymbalta. 9. Iron. 10. Flonase. 11. Lasix. 12. Neurontin. 13. Robitussin. 14. Levemir. 15. Imdur. 16. Levaquin. 17. Synthroid. 18. Lidoderm patch. 19. Glucophage. 20. Toprol. 21. Nitrostat p.r.n. 22. Zofran p.r.n. 23. Protonix. 24. Prednisone. 25. Effexor. REVIEW OF SYSTEMS: Per the admission of Dr. Lucius Benavides dated 09/02/2017. PHYSICAL EXAMINATION: VITALS: Pulse 90, respirations 18, oxygen saturation on 2L 96%, weight 203 pounds, blood pressure 132/93. GENERAL: She is awake, alert, oriented x3. Nontoxic in appearance. Appears to be in some mild distress. HEENT: Her head is atraumatic, normocephalic. No temporal muscle wasting noted. Extraocular movements are intact. No conjunctival injection or scleral icterus appreciable. NECK: Supple. Trachea midline. Thyroid not palpable. HEART: Distant but otherwise regular. No murmurs noted. LUNGS: Coarse breath sounds and inspiratory and expiratory wheezing diffusely bilaterally. Normal percussion. ABDOMEN: Obese, soft. Positive bowel sounds. No guarding, rebound, rigidity, tenderness, or palpable hepatosplenomegaly. EXTREMITIES: Reveal no clubbing or cyanosis but there is 1 to 2+ pretibial edema and nonpitting edema in the upper extremities. LABORATORY DATA: White count 6.8, hemoglobin 8.5, hematocrit 28.8, platelets 41, 000. Sodium 144, potassium 4.7, chloride 91, CO2 41, BUN 33, creatinine 1.2. Liver chemistries demonstrate AST 43, ALT 99, total bilirubin 0.5. RADIOGRAPHIC DATA: Chest x-ray from 09/05/2017 demonstrates postoperative changes, slight progression in course of interstitial infiltrates bilaterally possibly related to pulmonary edema versus interstitial pneumonitis. IMPRESSION: 1. Dysphagia which etiology is unclear. Possibility of a motility disorder is possible versus central issues from [employer] problems. I would recommend the patient undergo an esophagram. 2. Hospital-acquired pneumonia. 3. Asthma. 4. Congestive heart failure. 5. Atrial fibrillation. 6. Diabetes mellitus. 7. Hypothyroidism. RECOMMENDATION: I would suggest an esophagram be performed. She is not in any clinical status that would allow an upper endoscopy at this time. I do not think that would be helpful. As always, thank you for allowing me to participate in the healthcare of this patient. CC: CHAPITO JOHN MD, EVITA Benavides MD [facility]
--- NOTE | 2017-09-09 15:20 | Medical Records Consult ---
REASON FOR CONSULTATION: Dysphagia. HISTORY OF PRESENT ILLNESS: The patient is a 81-year-old woman who was admitted to a swing bed in rehab after apparently having been admitted with recurrent pneumonia. She apparently had a fall as well as urinary tract infection and was discharged to rehab for strengthening and gait training. Her respiratory status was declining and as a result, apparently she was admitted to the hospital at [place]. During the course of her admission, she was noted to have decline with worsening pulmonary status, cough, and dysphagia. She had previously undergone a swallowing evaluation at [facility] which did not delay any clear significance of her dysphagia symptoms. There was question whether there could be some esophageal motility issues. She subsequently has rhonchorous audible breath sounds when speaking and is short of breath. PAST MEDICAL HISTORY: Gout, anemia, coronary artery disease, hypothyroidism, diabetes mellitus, history of ovarian and bowel cancer according to the chart. She has had radiation and transfusions. She has also had urinary tract infections, TIA, hypercholesterolemia, AFib, coronary artery disease, and congestive heart failure. Asthma, need for CPAP, diabetes, hypothyroidism, fibromyalgia, osteoporosis, osteopenia. ALLERGIES: ALLOPURINOL, REGLAN, RANITIDINE, SULFA, REOPRO, INTEGRILIN, NSAIDS, CALAN. FAMILY HISTORY: Diabetes as well as cancer in father, mother, brother, and sister. REVIEW OF SYSTEMS: Noted per the admission that was performed by Dr. Benavides on 08/30/2017. No other additions noted. PHYSICAL EXAMINATION: VITALS: Temperature 99.0, pulse 90, blood pressure 132/93, respirations 18, 2L nasal cannula oxygen saturation 96%. GENERAL: She is awake, alert. She appears oriented x3. It is difficult to hear her speak because she is short of breath and has audible wheezing when speaking. HEENT: Her head is atraumatic, normocephalic. No temporal muscle wasting was noted. Skin was mildly pale but otherwise warm and dry. Extraocular movements are intact. No conjunctival injection or scleral icterus noted. NECK: Supple. Trachea midline. Thyroid was not palpable. HEART: Regular rate and rhythm. LUNGS: Coarse breath sounds and wheezing throughout all lung [place]. Normal to percussion. ABDOMEN: Morbidly obese, soft. No guarding, rebound, rigidity, or tenderness. EXTREMITIES: Reveal 2+ pretibial edema and some nonpitting edema in the upper extremities. LABORATORY DATA: White count 6.8, hemoglobin 8.5, hematocrit 28.8, platelets 39. BUN 34, creatinine 1.0, bilirubin 0.5, AST 0.43, ALT 99. BNP was 19,060. RADIOGRAPHIC DATA: Chest x-ray from 09/05/2017 demonstrates progression of interstitial infiltrates bilaterally questionably related to pulmonary edema and/or interstitial pneumonitis. IMPRESSION: Dysphagia which it is unclear whether this is to solids, liquids, or all foods. Her video swallowing exam does not clarify whether there is any esophageal component although there may be some sort of oropharyngeal component. Question if this is a motility disorder and/or weakness from deconditioning or any central neurologic issue which could contribute to swallowing issues. CC: CHAPITO JOHN MD, FACMD STEPHANY Friedman
== END 2017-09-09 17:20 | disposition hospice, inpatient (51) | DRG 194 ==
LOC: UNDOADMIN 10:23 → MEDSURG 10:23 → UNDOADMIN 09-04 02:52 → MEDSURG 09-04 02:52
PROVIDERS: ADMIT Internal Medicine; ATTEND Emergency Medicine
DX: J18.9 Pneumonia, unspecified organism (principal); J45.901 Unspecified asthma with (acute) exacerbation; J81.1 Chronic pulmonary edema; I48.2 Chronic atrial fibrillation; E87.5 Hyperkalemia; F41.8 Other specified anxiety disorders; E11.9 Type 2 diabetes mellitus without complications; Z79.4 Long term (current) use of insulin; E03.9 Hypothyroidism, unspecified; J44.9 Chronic obstructive pulmonary disease, unspecified; Z95.1 Presence of aortocoronary bypass graft; Z90.49 Acquired absence of other specified parts of digestive tract; Z95.5 Presence of coronary angioplasty implant and graft; E11.40 Type 2 diabetes mellitus with diabetic neuropathy, unspecified; I50.9 Heart failure, unspecified; I10 Essential (primary) hypertension; E78.00 Pure hypercholesterolemia, unspecified; J45.909 Unspecified asthma, uncomplicated; I25.2 Old myocardial infarction; K21.9 Gastro-esophageal reflux disease without esophagitis; M19.90 Unspecified osteoarthritis, unspecified site; M85.80 Other specified disorders of bone density and structure, unspecified site; G47.30 Sleep apnea, unspecified; Z86.73 Personal history of transient ischemic attack (TIA), and cerebral infarction without residual deficits; Z85.038 Personal history of other malignant neoplasm of large intestine; Z85.43 Personal history of malignant neoplasm of ovary; Z85.819 Personal history of malignant neoplasm of unspecified site of lip, oral cavity, and pharynx
CPT/HCPCS: 36416; 71046; 80048; 80053; 82948; 83880; 84145; 84484; 85025; 85027; 93005; 93306; 94010; 94640; 94760; 94761; 99223; 99233; J1940; J1956; J2930; J7512; J7613